=== PATIENT | female | born 1955 | race Caucasian/White ===

== ENCOUNTER 2021-12-19 12:20 | Inpatient (IN) ==
[2021-12-19 13:09] LABS: Basophils # (auto) 0.03 K/uL (0-0.2); Basophils % (auto) 0.2 %; Eosinophils # (auto) 0.01 K/uL (0-0.50); Eosinophils % (auto) 0.1 %; Hematocrit (blood only) 37.5 % (34.1-44.9); Hemoglobin 12.5 g/dl (12.0-16.0); Immature Granulocytes # (auto) 0.11 K/uL (0.00-0.02); Immature Granulocytes % (auto) 0.7 %; Lymphocytes # (auto) 1.18 K/uL (1.2-3.4); Mean Corpuscular Hemoglobin 25.2 pg (25.0-34.0); Mean Corpuscular Hgb Conc 33.3 g/dL (32.0-36.0); Mean Corpuscular Volume 75.6 fL (80.0-100.0); Mean Platelet Volume 12.3 fL (9.4-12.3); Monocytes # (auto) 0.93 K/uL (0.24-0.82); Monocytes % (auto) 6.3 %; Neutrophils # (auto) 12.48 K/uL (1.4-6.5); Neutrophils % (auto) 84.7 %; Platelet Count 360 K/uL (130-400); RDW Coefficient of Variation 14.3 % (11.5-14.5); RDW Standard Deviation 38.9 fL (36.4-46.3); Red Blood Count 4.96 M/uL (3.93-5.22); White Blood Count 14.74 K/ul (4.8-10.8)
[2021-12-19 13:27] LABS: INR 1.2 (0.9-1.1); Partial Thromboplastin Ratio 1.2; Partial Thromboplastin Time 33.6 Seconds (21.0-31.0); Prothrombin Time 12.6 Seconds (9.0-12.0)
[2021-12-19 13:41] LABS: Troponin I High Sensitivity 12.2 pg/ml (0-14)
[2021-12-19 13:43] LABS: Alanine Aminotransferase 13 U/L (7-52); Albumin Globulin Ratio 0.8 (0.9-2); Albumin Level 3.8 gm/dl (3.4-5.0); Alkaline Phosphatase 106 U/L (34-104); Anion Gap 15 (3-11); Aspartate Aminotransferase 11 U/L (13-39); BUN Creatinine Ratio 12.4 (10-20); Bilirubin,Total 0.8 mg/dl (0.2-1.0); Blood Urea Nitrogen 14 mg/dl (6-23); Calcium 10.3 mg/dl (8.5-10.1); Carbon Dioxide 28 mmol/L (21-32); Chloride 88 mmol/L (98-107); Est GFR (African American) 59.1 ml/min; Globulin 4.5 gm/dl (2.5-4.0); Glucose 261 mg/dl (70-99(Fasting)); Magnesium 1.5 mg/dl (1.7-2.4); Potassium 3.1 mmol/L (3.5-5.1); Sodium 131 mmol/L (136-145); Total Protein 8.3 gm/dl (6.0-8.3)
--- NOTE | 2021-12-19 13:48 | XRay Report ---
XR chest 1V not portable CLINICAL HISTORY: Sepsis TECHNIQUE: Single frontal radiograph of the chest was obtained. Comparison: None available at the time of this dictation. FINDINGS: No lines and tubes are seen. The cardiomediastinal silhouette is normal. The lungs are clear. No evid ence of pleural effusion or pneumothorax. IMPRESSION: No acute chest disease. ACT 112: Negative or not required by law. Electronically signed by: Juarez Doherty M.D. 12/19/2021 1:47 PM
--- NOTE | 2021-12-19 14:34 | Electrocardiogram Report ---
Test Reason : Blood Pressure : / mmHG Vent. Rate : 070 BPM Atrial Rate : 070 BPM P-R Int : 174 ms QRS Dur : 088 ms QT Int : 438 ms P-R-T Axes : 063 006 030 degrees QTc Int : 473 ms Poor data quality, interpretation may be adversely affected Normal sinus rhythm Poor R wave progression, consider anterior [place] vs. lead placement vs. LVH Abnormal ECG No previous ECGs available Confirmed by Myles Kingsley ([id number]) on 12/19/2021 2:33:57 PM Referred By: Confirmed By:Myles Kingsley
[2021-12-19] MEDS ORDERED: CEFEPIME 20 ML IV STA (14:55)
[2021-12-19] MEDS ORDERED: metroNIDAZOLE 500 MG/100 ML BAG IV STA (14:55)
[2021-12-19] MEDS ORDERED: Patient's HEIGHT &/or WEIGHT Needed SCH (15:00)
[2021-12-19] MEDS ORDERED: ONDANSETRON INJ 2 MG/ML 2 ML VIAL IV STA (15:12)
[2021-12-19] MEDS ORDERED: VANCOMYCIN HCL 2,000 MG in SODIUM CHLORIDE 0.9% 500 ML IV STA (15:13)
--- NOTE | 2021-12-19 15:41 | XRay Report ---
RIGHT FOOT 3 VIEWS CLINICAL HISTORY: Diabetic foot ulcer. FINDINGS: 3 views of the right foot are obtained. No prior studies are available for comparison at th e time of dictation. The skeletal structures are heterogeneously osteopenic. No acute fracture is see n. There is no bony erosion or periostitis. Moderate osteoarthritic change is noted at the first meta tarsophalangeal joint. Moderate arthritic change is also seen at the tarsometatarsal articulations. T here is a tiny dorsal calcaneal enthesophyte. Degenerative spurring is seen along the dorsal aspect o f the tarsal bones. A plantar ulceration is suggested in the forefoot on the lateral projection. Ther e is mild soft tissue edema in the forefoot. No radiodense foreign body or soft tissue gas is seen. IMPRESSION: 1. Osteopenia and degenerative changes above with no acute bony abnormality identified. 2. A plantar ulceration is suggested in the forefoot on the lateral view. Electronically signed by: Kan Croft M.D. 12/19/2021 3:39 PM
--- NOTE | 2021-12-19 15:54 | CT Scan Report ---
CT SCAN OF THE ABDOMEN AND PELVIS WITHOUT IV CONTRAST CLINICAL HISTORY: Upper abdominal pain. COMPARISON STUDY: No priors. TECHNIQUE: CT scan of the abdomen and pelvis is performed from the lung bases to the proximal femora. Images are reviewed in the axial, sagittal, and coronal planes. IV contrast was not administered for this examination. Note that the examination is suboptimal without oral and IV contrast. A dose lower ing technique was utilized adhering to the principles of ALARA. CT DOSE: 1113.85 mGy.cm FINDINGS: Lung bases: The heart is normal in size and without pericardial effusion. The coronary arteries are d ensely calcified. There is a small to moderate hiatal hernia. There is an 11 mm lobulated pulmonary n odule at the right lung base seen on image #53. The lung bases are otherwise clear noting bibasilar s carring/atelectasis. Liver: The unenhanced liver is enlarged, measuring 19.5 cm in length. The liver is otherwise normal i n contour and attenuation. There is no intrahepatic biliary ductal dilatation. Gallbladder: Unremarkable. Spleen: The spleen is mildly enlarged measuring 13.9 cm in length. Pancreas: The unenhanced pancreas is grossly unremarkable. Adrenal glands: Unremarkable. Kidneys: The unenhanced kidneys are normal in size and without hydronephrosis. There are no renal madhavi culi identified. A 3.1 cm cyst is noted in the left lower pole. Abdominal vasculature: The abdominal aorta is normal in course and caliber noting moderate to advance d atherosclerotic calcification. Bowel: There is no bowel obstruction. Mild fecal retention is seen throughout the colon. The appendix is well-visualized and normal. Peritoneum: There is no intraperitoneal free air or abdominal ascites. Lymphadenopathy: Prominent right inguinal lymph nodes measure up to 1.5 cm. These are likely reactive . Prominent right iliac chain nodes measure up to 10 mm in short axis. Pelvic viscera: The bladder is normal as visualized. The uterus is surgically absent. No adnexal lesi on is seen. Skeletal structures: The skeletal structures are osteopenic. There is mild lumbosacral spondylosis an d scoliosis. No lytic or blastic lesions are seen. IMPRESSION: 1. No acute infectious or inflammatory findings are identified in the abdomen or pelvis. 2. Mild hepatosplenomegaly. 3. There is a pathologically indeterminant 11 mm right lower lobe pulmonary nodule. A follow-up chest CT in 6 months time is recommended for reassessment and full evaluation of pneumothorax. 4. Hiatal hernia. 5. Additional findings as above. ACT 112: Positive. There are findings on this exam that require communication between the performing entity and the patient following Patient Test Result Information Act ([place] Act 112) guidelines. Electronically signed by: Kan Croft M.D. 12/19/2021 3:52 PM
--- NOTE | 2021-12-19 15:55 | XRay Report ---
XR foot LT min 3V routine CLINICAL HISTORY: plantar diabetic ulcer, ? osteo TECHNIQUE: 3 views of the left foot were obtained. Comparison: None available at the time of this dictation. FINDINGS: No evidence of bony erosion is seen. Extensive degenerative changes are seen. Soft tissue ulceration is seen in the plantar forefoot. IMPRESSION: Plantar ulcer is noted in the forefoot. No radiographic evidence of osteomyelitis. If clinical concer n remains, MRI is a more sensitive modality. ACT 112: Negative or not required by law. Electronically signed by: Juarez Doherty M.D. 12/19/2021 3:53 PM
[2021-12-19 16:59] LABS: Appearance Urine Clear (Clear); Bacteria Urine Automated Negative (Negative); Blood Urine Negative (Negative); Color Urine Dark Yellow; Epithelial Cell Urine Auto >30 /lpf (0-5); Glucose Urine UA Negative (Negative); Ketones Urine Trace (Negative); Leukocyte Esterase Urine Negative (Negative); Nitrite Urine Negative (Negative); Protein Urine Trace (Negative); RBC Urine Automated 0-4 /hpf (0-4); Specific Gravity Urine 1.017 (1.000-1.030); Urobilinogen Urine Negative (Negative)
[2021-12-19 17:04] LABS: Bilirubin Urine 1+ (Negative)
[2021-12-19] MEDS ORDERED: POTASSIUM CHLORIDE CRTAB 20 MEQ TABCR PO STA (17:15)
--- NOTE | 2021-12-19 17:31 | History & Physical Report ---
Date of Service December 19, 2021 Assessment & Plan (1) Diabetic foot infection: (2) Foot ulcer: Plan: -Admit to med telemetry -Wound care consulted -X-ray of left and right foot are negative for obvious osteomyelitis, obtain MRI if medically cleared -Follow blood cultures, wound culture, ESR, CRP -Continue treatment with IV Vanco, cefepime and Flagyl - Obtain MRI of bilateral feet-->she became nauseous in MRI this evening and couldn't complete the studies. Try again in am. -ortho consult -notably daughter also states that mom walks around on cat feces because cat plays with stool?-->blood cultures pending. (3) DM II (diabetes mellitus, type II), controlled: Plan: - uncontrolled, Holding glipizide and metformin -A1c with a.m. labs. Daughter reports glucose is in the 300s-400s -ISS with Accu-Cheks ACHS - allow clears for now -certified adapted physical educator requested. -notably patient reports being prescribed Trulicity but isn't certain what dose and hasn't started this yet. (4) Nausea & vomiting: Plan: Multiple etiologies including but not limited to diabetic gastroparesis, worsened foot infection, normal bereavement regarding anniversary of 's vs depression. Other infection such as food borne illness-daughter says she is not caring for herself at home and this may be likely with eating spoiled foods. (5) Hyponatremia: Plan: 2/2 clinical dehydration. Cont to encourage PO intake. Repeat BMP in am. (6) Hypomagnesemia: Plan: -replace and repeat in am. (7) Hypokalemia: Plan: -Replaced with 40 meq, BMP in am. She is on a thiazode diuretic which may be contributing. -P-t reports vomiting intermittently (8) Pito's disease: Plan: -chronic, stable. Cont Synthroid per home regimen. (9) HTN (hypertension): Plan: chronic, stable. Cont chlorthalidone and diltiazem per home regimen. (10) DVT prophylaxis: Plan: teds, scds, heparin CODE: Full code Dispo: From home, likely to remain in the hospital x 2 days. PT/OT ordered for reported weakness at the end of the visit. Stephanie Mcdonough DO [facility] History of Present Illness Chief Complaint: Sent from wound clinic for foot ulcercs Primary Care Provider: Meli Dubois MD at [facility] This is a 66 yo F with PMhx of DM type II, Pito's, Hawley's esophagus, brain meningioma, diabetic neuropathy, history of foot ulcers which she has been being seen in the wound clinic for for many months. She was sent to the ER as bilateral foot ulcers had foul smell, increased redness and swelling. She reports not being on any recent antibiotics for this. She typically walks with socks at home, gets around without use of a walker or cane. No recent falls. She denies any fever /sweats but reports some chills. She has been taking her medication, however her daughter at bedside reports that she is not sure she is taking it accurately/compliantly. Patient notes that she has abdominal pain where she has a "pulling sensation" on her right side. She notes that there is a specific right upper quadrant discomfort. Patient has intermittent nausea and vomited once today. She also reports having issues with constipation, unknown last bowel movement. She is repetitively asking for something to eat during our encounter. Abdominal pain has been going on for months and has previously been told that she had a nonfunctioning gallbladder, and previously had a study where dye was injected into it and it was not working. Due to her chronic comorbidities and poor health she was told she was not an operable candidate and that they would not operate unless it was significantly needed. She notes that her second 1 year ago, and since then has struggled with her mood and admits to being depressed. She is taking antidepressants but is not sure that they actually help her. She is not seeing counselor or psychiatrist. Patient also notes that she was supposed to be wearing CPAP however has not in years. She does not wear any supplemental O2 at baseline. Quit smoking in 2007 after smoking 1 PPD since age 17. Denies any alcohol use. Allergies Allergy/AdvReac Type Severity Reaction Status Date / Time nickel Allergy Intermediate RASH, SKIN Verified 12/19/21 16:16 IRRITATION Sulfa (Sulfonamide Allergy Intermediate Rash Verified 12/19/21 16:16 Antibiotics) Penicillins Allergy Unknown HAPPENED Verified 12/19/21 16:16 AN INFANT--FAMILY HX. Home Medications Medication Instructions Recorded Confirmed Type aspirin 81 mg tablet,delayed 81 mg PO DAILY 12/19/21 12/19/21 History release atorvastatin 20 mg tablet 20 mg PO HS 12/19/21 12/19/21 History chlorthalidone 25 mg tablet 25 mg PO DAILY 12/19/21 12/19/21 History cholecalciferol (vitamin D3) 25 25 mcg PO DAILY 12/19/21 12/19/21 History mcg (1,000 unit) capsule (Vitamin D3) diltiazem HCl 360 mg capsule,24 360 mg PO DAILY 12/19/21 12/19/21 History hr,extended release (Tiadylt ER) esomeprazole magnesium 20 mg 20 mg PO DAILY 12/19/21 12/19/21 History capsule,delayed release (Nexium) fluoxetine 40 mg capsule 40 mg PO DAILY 12/19/21 12/19/21 History glipizide 10 mg tablet, extended 10 mg PO BID 12/19/21 12/19/21 History release 24 hr levothyroxine 100 mcg tablet 100 mcg PO WK 12/19/21 12/19/21 History levothyroxine 175 mcg tablet 175 mcg PO 6XWK 12/19/21 12/19/21 History metformin 1,000 mg tablet 1,000 mg PO BID 12/19/21 12/19/21 History ondansetron 4 mg disintegrating 4 mg translingual Q8H PRN 12/19/21 12/19/21 History tablet NAUSEA/VOMITING potassium chloride 10 mEq 10 meq PO DAILY 12/19/21 12/19/21 History capsule,extended release sodium hypochlorite 0.125 % 1 applic topical DAILY 12/19/21 12/19/21 History solution (Dakin's Solution) Past Med/Surg History Medical History (Updated 12/19/21 @ 22:55 by Stephanie Mcdonough DO) Breast cyst DM II (diabetes mellitus, type II), controlled Pito's disease HTN (hypertension) Lung nodule Meningioma Tobacco abuse, in remission Surgical History (Updated 12/19/21 @ 18:33 by Autumn Villa PA-C) H/O removal of cyst Hx of foot surgery Hx of hand surgery Hx of total hysterectomy Family History (Updated 12/19/21 @ 18:34 by Autumn Villa PA-C) Aunt Cancer Ovarian age 31 Aunt Cancer Throat, bladder Uncle Cancer Prostate Mother Heart disease Hypertension Social History (Updated 12/19/21 @ 18:35 by Autumn Villa PA-C) Smoking Status: Former smoker Age Started Using Tobacco: 17; packs per day: 1; Smoking End Date: 2007; Hx Alcohol Use: No Hx Substance Use: No Preferred Language: [place] Feels Safe at Home: Yes Review of Systems Review of Systems: Constitutional: No fever, sweats or chills Eyes: No diplopia, no worsening or blurred vision ENT: normal hearing, no trouble swallowing Respiratory: No cough, sputum, dyspnea at rest or on exertion Cardiovascular: No chest pain, tightness or palpitations Abdomen: + As per HPI + pain, + nausea, + vomiting, +constipation Musculoskeletal: No joint pain, calf pain, swelling Neurologic: + Numbness of feet bilaterally, + generalized weakness and fatigue, numbness/tingling, or balance problems Psychiatric: + depression after her 's 1 year ago. Skin: No rash or itch Physical Exam Physical Exam: General: awake, alert, no apparent distress, obese with BMI of 34.4 Head: Normocephalic, atraumatic ENT: PERRL, EOMI, no pharyngeal exudate, mucous membranes moist, + poor dentition, multiple broken teeth, no visible purulent material, multiple caries throughout Chest: Clear to auscultation, on room air, no adventitious breath sounds Cardiac: Regular rate and rhythm, no murmur, no JVD, normal peripheral pulses, good capillary refill Abdominal: NABS x 4 quadrants, soft, nondistended, + tender to deep palpation in RUQ, no rebound or guarding Extremities: + Foul-smelling foot ulcerations bilaterally, bilateral plantar ulcerations approximately 1-2 cm in diameter, erythematous second right toe with edema, + edema of right ankle, no erythema streaking, calfs nontender to palpation Psych: Flat mood and affect, denies suicidal or homicidal ideations Neuro: AAO x 3, strength intact bilaterally and rated 5/5, no motor deficits, speech is clear, + diabetic neuropathy, peripheral sensory deficits bilateral feet up to the level of the ankle Results & Data Results & Data ([facility]) Vital Signs (Past 12 Hours) Vital Signs Temp Pulse Pulse Resp BP BP Pulse Ox 12/19/21 15:29 66 18 94 12/19/21 15:29 94 12/19/21 15:29 66 18 115/79 94 12/19/21 12:27 36.2 C L 81 18 118/77 95 O2 Del Method 12/19/21 15:29 Room Air 12/19/21 15:29 Room Air 12/19/21 15:29 Room Air 12/19/21 12:27 Room Air Laboratory Results 12/19/21 14:32 Aerobic Blood Culture - Pending Blood Anaerobic Blood Culture - Pending 12/19/21 12:45 Aerobic Blood Culture - Pending Blood Anaerobic Blood Culture - Pending 12/19/21 12/19/21 12/19/21 16:26 12:45 12:45 WBC RBC Hgb Hct MCV MCH MCHC RDW Std Deviation RDW Coeff of Roni Plt Count MPV Immature Gran % (Auto) Neut % (Auto) Lymph % (Auto) [place] % (Auto) Eos % (Auto) Baso % (Auto) Neut # (Auto) Lymph # (Auto) [place] # (Auto) Eos # (Auto) Baso # (Auto) Immature Gran # (Auto) PT INR APTT PTT Ratio Sodium 131 L Potassium 3.1 L Chloride 88 L Carbon Dioxide 28 Anion Gap 15 H BUN 14 Creatinine 1.13 Est Cr Clr Drug Dosing Not Reportable Est GFR ( Amer) 59.1 Est GFR (Non-Af Amer) 51.0 BUN/Creatinine Ratio 12.4 Glucose 261 H Calcium 10.3 H Magnesium 1.5 L Total Bilirubin 0.8 AST 11 L ALT 13 Alkaline Phosphatase 106 H Troponin I High Sens 12.2 Total Protein 8.3 Albumin 3.8 Globulin 4.5 H Albumin/Globulin Ratio 0.8 L Procalcitonin 0.78 H Urine Color Dark Yellow Urine Appearance Clear Urine pH 5.0 Ur Specific [place] 1.017 Urine Protein Trace H Urine Glucose (UA) Negative Urine Ketones Trace H Urine Blood Negative Urine Nitrite Negative Urine Bilirubin 1+ H Urine Urobilinogen Negative Ur Leukocyte Esterase Negative Urine WBC (Auto) 1-5 Urine RBC (Auto) 0-4 U Hyaline Cast (Auto) 10-30 H U Epithel Cells (Auto) >30 H Urine Bacteria (Auto) Negative 12/19/21 12/19/21 12:45 12:45 WBC 14.74 H RBC 4.96 Hgb 12.5 Hct 37.5 MCV 75.6 L MCH 25.2 MCHC 33.3 RDW Std Deviation 38.9 RDW Coeff of Roni 14.3 Plt Count 360 MPV 12.3 Immature Gran % (Auto) 0.7 Neut % (Auto) 84.7 Lymph % (Auto) 8.0 [place] % (Auto) 6.3 Eos % (Auto) 0.1 Baso % (Auto) 0.2 Neut # (Auto) 12.48 H Lymph # (Auto) 1.18 L [place] # (Auto) 0.93 H Eos # (Auto) 0.01 Baso # (Auto) 0.03 Immature Gran # (Auto) 0.11 H PT 12.6 H INR 1.2 H APTT 33.6 H PTT Ratio 1.2 Sodium Potassium Chloride Carbon Dioxide Anion Gap BUN Creatinine Est Cr Clr Drug Dosing Est GFR ( Amer) Est GFR (Non-Af Amer) BUN/Creatinine Ratio Glucose Calcium Magnesium Total Bilirubin AST ALT Alkaline Phosphatase Troponin I High Sens Total Protein Albumin Globulin Albumin/Globulin Ratio Procalcitonin Urine Color Urine Appearance Urine pH Ur Specific [place] Urine Protein Urine Glucose (UA) Urine Ketones Urine Blood Urine Nitrite Urine Bilirubin Urine Urobilinogen Ur Leukocyte Esterase Urine WBC (Auto) Urine RBC (Auto) U Hyaline Cast (Auto) U Epithel Cells (Auto) Urine Bacteria (Auto) Diagnostic Findings Chest X-Ray 12/19/21 12:33 XR chest 1V not portable CLINICAL HISTORY: Sepsis TECHNIQUE: Single frontal radiograph of the chest was obtained. Comparison: None available at the time of this dictation. FINDINGS: No lines and tubes are seen. The cardiomediastinal silhouette is normal. The lungs are clear. No evidence of pleural effusion or pneumothorax. IMPRESSION: No acute chest disease. ACT 112: Negative or not required by law. Electronically signed by: Juarez Doherty M.D. 12/19/2021 1:47 PM Abdomen/Pelvis CT 12/19/21 14:47 CT SCAN OF THE ABDOMEN AND PELVIS WITHOUT IV CONTRAST CLINICAL HISTORY: Upper abdominal pain. COMPARISON STUDY: No priors. TECHNIQUE: CT scan of the abdomen and pelvis is performed from the lung bases to the proximal femora. Images are reviewed in the axial, sagittal, and coronal planes. IV contrast was not administered for this examination. Note that the examination is suboptimal without oral and IV contrast. A dose lowering technique was utilized adhering to the principles of ALARA. CT DOSE: 1113.85 mGy.cm FINDINGS: Lung bases: The heart is normal in size and without pericardial effusion. The coronary arteries are densely calcified. There is a small to moderate hiatal hernia. There is an 11 mm lobulated pulmonary nodule at the right lung base seen on image #53. The lung bases are otherwise clear noting bibasilar scarring/atelectasis. Liver: The unenhanced liver is enlarged, measuring 19.5 cm in length. The liver is otherwise normal in contour and attenuation. There is no intrahepatic biliary ductal dilatation. Gallbladder: Unremarkable. Spleen: The spleen is mildly enlarged measuring 13.9 cm in length. Pancreas: The unenhanced pancreas is grossly unremarkable. Adrenal glands: Unremarkable. Kidneys: The unenhanced kidneys are normal in size and without hydronephrosis. There are no renal calculi identified. A 3.1 cm cyst is noted in the left lower pole. Abdominal vasculature: The abdominal aorta is normal in course and caliber noting moderate to advanced atherosclerotic calcification. Bowel: There is no bowel obstruction. Mild fecal retention is seen throughout the colon. The appendix is well-visualized and normal. Peritoneum: There is no intraperitoneal free air or abdominal ascites. Lymphadenopathy: Prominent right inguinal lymph nodes measure up to 1.5 cm. These are likely reactive. Prominent right iliac chain nodes measure up to 10 mm in short axis. Pelvic viscera: The bladder is normal as visualized. The uterus is surgically absent. No adnexal lesion is seen. Skeletal structures: The skeletal structures are osteopenic. There is mild lumbosacral spondylosis and scoliosis. No lytic or blastic lesions are seen. IMPRESSION: 1. No acute infectious or inflammatory findings are identified in the abdomen or pelvis. 2. Mild hepatosplenomegaly. 3. There is a pathologically indeterminant 11 mm right lower lobe pulmonary nodule. A follow-up chest CT in 6 months time is recommended for reassessment and full evaluation of pneumothorax. 4. Hiatal hernia. 5. Additional findings as above. ACT 112: Positive. There are findings on this exam that require communication between the performing entity and the patient following Patient Test Result Information Act ([place] Act 112) guidelines. Electronically signed by: Kan Croft M.D. 12/19/2021 3:52 PM Foot X-Ray 12/19/21 14:47 XR foot LT min 3V routine CLINICAL HISTORY: plantar diabetic ulcer, ? osteo TECHNIQUE: 3 views of the left foot were obtained. Comparison: None available at the time of this dictation. FINDINGS: No evidence of bony erosion is seen. Extensive degenerative changes are seen. So ft tissue ulceration is seen in the plantar forefoot. IMPRESSION: Plantar ulcer is noted in the forefoot. No radiographic evidence of osteomyelitis. If clinical concern remains, MRI is a more sensitive modality. ACT 112: Negative or not required by law. Electronically signed by: Juarez Doherty M.D. 12/19/2021 3:53 PM Foot X-Ray 12/19/21 14:47 RIGHT FOOT 3 VIEWS CLINICAL HISTORY: Diabetic foot ulcer. FINDINGS: 3 views of the right foot are obtained. No prior studies are available for comparison at the time of dictation. The skeletal structures are hetero geneously osteopenic. No acute fracture is seen. There is no bony erosion or periostitis. Moderate osteoarthritic change is noted at the first metatarsophalangeal joint. Moderate arthritic change is also seen at the tarsometatarsal articulations. There is a tiny dorsal calcaneal enthesophyte. Degenerative spurring is seen along the dorsal aspect of the tarsal bones. A plantar ulceration is suggested in the forefoot on the lateral projection. There is mild soft tissue edema in the forefoot. No radiodense foreign body or soft tissue gas is seen. IMPRESSION: 1. Osteopenia and degenerative changes above with no acute bony abnormality identified. 2. A plantar ulceration is suggested in the forefoot on the lateral view. Electronically signed by: Kan Croft M.D. 12/19/2021 3:39 PM ECG Additional Comments: 19-DEC-2021 12:42:19 [facility]-EDSTAT ROUTINE RETRIEVAL Poor data quality, interpretation may be adversely affected Normal sinus rhythm Poor R wave progression, consider anterior [place] vs. lead placement vs. LVH Abnormal ECG No previous ECGs available Confirmed by Myles Kingsley ([id number]) on 12/19/2021 2:33:57 PM 25mm/s10mm/[id number]: [id number] By: Myles Kingsley Vent. rate 70 BPM MD interval 174 ms QRS duration 88 ms QT/QTc 438/473 ms Code Status & VTE Plan Code Status Full code-discussed with the patient at bedside
[2021-12-19] MEDS ORDERED: POTASSIUM CHLORIDE 20 MEQ/15 ML UDC PO STA (17:48)
--- NOTE | 2021-12-19 18:47 | Emergency Department Note ---
Impression & Plan Diabetic infection of right foot, Hypomagnesemia, Hypokalemia, Diabetic infection of left foot, Bilateral upper abdominal pain ED Provider Note INFORMANT: Patient and daughter ED PROVIDER(S): Tim Rodgers MD CHIEF COMPLAINT: Diabetic foot infection PLAN: Disposition: Admitted Condition: Good Outpatient prescription management: none Referral: None MEDICAL DECISION MAKING: Patient presented because of concerns about infection. A sepsis work-up was initiated. She was found to have a leukocytosis. She did have a mild elevation of her CRP as well. Mild hypomagnesemia and hypokalemia noted. Patient was given oral potassium. She was given broad-spectrum antibiotic coverage with cefepime, Flagyl, and vancomycin after discussion with the ED pharmacist. She declined analgesia however was treated with Zofran. She has no sign of septic shock. She was gently hydrated. Lactate was normal. She did have a CT scan of the abdomen pelvis due to her abdominal complaints. No acute findings were noted. Patient was aware of nodule. [facility] was evaluated in the ER and admitted. Triage Nursing notes reviewed and agree them. Vital Signs: reviewed and remarkable for no significant abnormalities Differential diagnosis: Infection, dehydration, metabolic abnormality, hypo/hyperglycemia, electrolyte disturbance, anemia, hypoxia, cardiac sources, intracerebral event, toxicologic, neurologic, as well as other pathologies. Diagnostics interpreted by me: ECG: Twelve-lead ECG reveals a normal sinus rhythm at 70 bpm. Poor R wave progression. No ST elevation or depression. Normal QRS and axis. Cardiac Monitoring: Cardiac monitoring ordered by me: The patient was placed on continuous cardiac monitoring and observed. It revealed a normal sinus rhythm at 66 beats per minute without ectopy or evidence of dysrhythmia. Imaging studies: Chest x-ray. Findings: A chest x-ray was performed and revealed no pneumothorax, effusion, infiltrate, pulmonary edema, free air under the diaphragm, or wide mediastinum. Impression: No acute disease. X-ray imaging of both feet bilaterally revealed no evidence of osteomyelitis. CT scan of the abdomen pelvis is negative for acute pathology. Patient aware of nodule. I refer you to the EMR for further details. HPI: The patient is a 66year old female who presents to the Emergency Room with complaints of diabetic infection. This started a few weeks ago and is worsening. Patient went to the wound clinic today and was sent to the ER due to concerns about infection, possible sepsis. The patient also notes the following associated symptoms, nausea, vomiting, upper abdominal pain. Patient notes that at times he feels confused. The patient has taken no medication for relieving factors. Current pain is rated as 8/10. Pt denies LOC, headache, fevers, chills, diaphoresis, visual changes, neck pain, chest pain, breathing difficulties, back pain, melena, hematochezia, urinary symptoms, numbness, weakness, lymphadenopathy, rash, or other complaints. ROS: See above HPI for pertinent positives & negatives. A total of 10 systems reviewed and were otherwise negative. PAST MEDICAL HISTORY:See Below , diabetes PAST SURGICAL HISTORY:See Below, FAMILY HISTORY:See Below SOCIAL HISTORY:See Below, retired HOME MEDICATIONS:See Below ALLERGIES:See Below VITALS:See Below PHYSICAL EXAMINATION: GENERAL: Awake, alert, nontoxic-appearing, in no distress HENT: Normocephalic, atraumatic. Oropharynx unremarkable. EYES: Normal conjunctiva. Sclera non-icteric. NECK: Inspection normal. Non-tender. Supple. No nuchal rigidity. FROM. No masses. RESPIRATORY: Clear to auscultation. No wheezes. No rales. Normal respiratory effort. CARDIAC: Normal rate. Normal rhythm. No murmurs. No rubs. Extremities warm and well perfused. Pulses equal. No JVD. GI: Soft, non-distended. Bilateral upper quadrant tenderness to palpation. No rebound or guarding. No masses. RECTAL: Deferred. MUSCULOSKELETAL: Atraumatic. Chest examination reveals no tenderness. The back is symmetrical on inspection without obvious abnormality. There is no CVA tenderness to palpation. No joint edema. LOWER EXTREMITIES: Calves are equal size bilaterally and non-tender. Trace edema. There are foul-smelling bilateral plantar diabetic foot ulcers present. Mild surrounding erythema present. No significant drainage. NEURO: Normal sensorium. No sensory or motor deficits noted. SKIN: No rash or jaundice noted. Tim Rodgers MD Past Med/Surg History Medical History (Updated 12/19/21 @ 22:55 by Stephanie Mcdonough DO) Breast cyst DM II (diabetes mellitus, type II), controlled Pito's disease HTN (hypertension) Lung nodule Meningioma Tobacco abuse, in remission Surgical History (Updated 12/19/21 @ 18:33 by Autumn Villa PA-C) H/O removal of cyst Hx of foot surgery Hx of hand surgery Hx of total hysterectomy Family History (Updated 12/19/21 @ 18:34 by Autumn Villa PA-C) Aunt Cancer Ovarian age 31 Aunt Cancer Throat, bladder Uncle Cancer Prostate Mother Heart disease Hypertension Social History (Updated 12/19/21 @ 18:35 by Autumn Villa PA-C) Smoking Status: Former smoker Age Started Using Tobacco: 17; packs per day: 1; Smoking End Date: 2007; Hx Alcohol Use: No Hx Substance Use: No Preferred Language: Mosotho Feels Safe at Home: Yes Allergies Allergies Allergy/AdvReac Type Severity Reaction Status Date / Time nickel Allergy Intermediate RASH, SKIN Verified 12/19/21 16:16 IRRITATION Sulfa (Sulfonamide Allergy Intermediate Rash Verified 12/19/21 16:16 Antibiotics) Penicillins Allergy Unknown HAPPENED Verified 12/19/21 16:16 AN INFANT--FAMILY HX. Home Meds Home Medications Medication Instructions Recorded Confirmed aspirin 81 mg tablet,delayed 81 mg PO DAILY 12/19/21 12/19/21 release atorvastatin 20 mg tablet 20 mg PO HS 12/19/21 12/19/21 chlorthalidone 25 mg tablet 25 mg PO DAILY 12/19/21 12/19/21 cholecalciferol (vitamin D3) 25 25 mcg PO DAILY 12/19/21 12/19/21 mcg (1,000 unit) capsule (Vitamin D3) diltiazem HCl 360 mg capsule,24 360 mg PO DAILY 12/19/21 12/19/21 hr,extended release (Tiadylt ER) esomeprazole magnesium 20 mg 20 mg PO DAILY 12/19/21 12/19/21 capsule,delayed release (Nexium) fluoxetine 40 mg capsule 40 mg PO DAILY 12/19/21 12/19/21 glipizide 10 mg tablet, extended 10 mg PO BID 12/19/21 12/19/21 release 24 hr levothyroxine 100 mcg tablet 100 mcg PO WK 12/19/21 12/19/21 levothyroxine 175 mcg tablet 175 mcg PO 6XWK 12/19/21 12/19/21 metformin 1,000 mg tablet 1,000 mg PO BID 12/19/21 12/19/21 ondansetron 4 mg disintegrating 4 mg translingual Q8H PRN 12/19/21 12/19/21 tablet NAUSEA/VOMITING potassium chloride 10 mEq 10 meq PO DAILY 12/19/21 12/19/21 capsule,extended release sodium hypochlorite 0.125 % 1 applic topical DAILY 12/19/21 12/19/21 solution (Dakin's Solution) Results & Data (ED) Vital Signs Vital Signs - 24 hr 12/19/21 12:27 12/19/21 15:29 12/19/21 15:29 Temperature 36.2 C L Temperature Source Temporal Artery Scan Pulse Rate 81 Pulse Rate [Finger] 66 Respiratory Rate 18 18 Respiratory Effort / Characteristics Non-Labored Respiratory Depth Normal Respiratory Pattern Regular Blood Pressure 118/77 Blood Pressure [Left Arm] 115/79 Blood Pressure Mean 90 Blood Pressure Mean [Left Arm] 91 Pulse Oximetry 95 94 94 Oxygen Delivery Method Room Air Room Air Room Air Sepsis Recent Fever Within 48 Hours No Sepsis New/Unexplained Change in Mental Status N/A Sepsis Action Taken by Nursing No Action Required 12/19/21 15:29 Temperature Temperature Source Pulse Rate 66 Pulse Rate [Finger] Respiratory Rate 18 Respiratory Effort / Characteristics Respiratory Depth Respiratory Pattern Blood Pressure Blood Pressure [Left Arm] Blood Pressure Mean Blood Pressure Mean [Left Arm] Pulse Oximetry 94 Oxygen Delivery Method Room Air Sepsis Recent Fever Within 48 Hours Sepsis New/Unexplained Change in Mental Status Sepsis Action Taken by Nursing Laboratory Data Result diagrams: 12/19/21 12:45 12/19/21 12:45 Lab Results 12/19/21 12/19/21 12/19/21 Range/Units 12:45 12:45 12:45 WBC 14.74 H (4.8-10.8) K/ul RBC 4.96 (3.93-5.22) M/uL Hgb 12.5 (12.0-16.0) g/dl Hct 37.5 (34.1-44.9) % MCV 75.6 L (80.0-100.0) fL MCH 25.2 (25.0-34.0) pg MCHC 33.3 (32.0-36.0) g/dL RDW Std Deviation 38.9 (36.4-46.3) fL RDW Coeff of Roni 14.3 (11.5-14.5) % Plt Count 360 (130-400) K/uL MPV 12.3 (9.4-12.3) fL Immature Gran % (Auto) 0.7 % Neut % (Auto) 84.7 % Lymph % (Auto) 8.0 % [place] % (Auto) 6.3 % Eos % (Auto) 0.1 % Baso % (Auto) 0.2 % Neut # (Auto) 12.48 H (1.4-6.5) K/uL Lymph # (Auto) 1.18 L (1.2-3.4) K/uL [place] # (Auto) 0.93 H (0.24-0.82) K/uL Eos # (Auto) 0.01 (0-0.50) K/uL Baso # (Auto) 0.03 (0-0.2) K/uL Immature Gran # (Auto) 0.11 H (0.00-0.02) K/uL ESR (0-30) mm/hr PT 12.6 H (9.0-12.0) Seconds INR 1.2 H (0.9-1.1) APTT 33.6 H (21.0-31.0) Seconds PTT Ratio 1.2 Sodium 131 L (136-145) mmol/L Potassium 3.1 L (3.5-5.1) mmol/L Chloride 88 L (98-107) mmol/L Carbon Dioxide 28 (21-32) mmol/L Anion Gap 15 H (3-11) BUN 14 (6-23) mg/dl Creatinine 1.13 (0.6-1.2) mg/dl Est Cr Clr Drug Dosing Not Reportable Est GFR ( Amer) 59.1 ml/min Est GFR (Non-Af Amer) 51.0 ml/min BUN/Creatinine Ratio 12.4 (10-20) Glucose 261 H (70-99(Fasting)) mg/dl Calcium 10.3 H (8.5-10.1) mg/dl Magnesium 1.5 L (1.7-2.4) mg/dl Total Bilirubin 0.8 (0.2-1.0) mg/dl AST 11 L (13-39) U/L ALT 13 (7-52) U/L Alkaline Phosphatase 106 H (34-104) U/L Troponin I High Sens 12.2 (0-14) pg/ml C-Reactive Protein (0-0.5) mg/dl Total Protein 8.3 (6.0-8.3) gm/dl Albumin 3.8 (3.4-5.0) gm/dl Globulin 4.5 H (2.5-4.0) gm/dl Albumin/Globulin Ratio 0.8 L (0.9-2) Procalcitonin (0-0.5) ng/ml Urine Color Urine Appearance (Clear) Urine pH (4.5-7.5) Ur Specific [place] (1.000-1.030) Urine Protein (Negative) Urine Glucose (UA) (Negative) Urine Ketones (Negative) Urine Blood (Negative) Urine Nitrite (Negative) Urine Bilirubin (Negative) Urine Urobilinogen (Negative) Ur Leukocyte Esterase (Negative) Urine WBC (Auto) (0-5) /hpf Urine RBC (Auto) (0-4) /hpf U Hyaline Cast (Auto) (0-5) /lpf U Epithel Cells (Auto) (0-5) /lpf Urine Bacteria (Auto) (Negative) SARS-CoV-2, RNA, NAAT (NEGATIVE) 12/19/21 12/19/21 12/19/21 Range/Units 12:45 12:45 12:45 WBC (4.8-10.8) K/ul RBC (3.93-5.22) M/uL Hgb (12.0-16.0) g/dl Hct (34.1-44.9) % MCV (80.0-100.0) fL MCH (25.0-34.0) pg MCHC (32.0-36.0) g/dL RDW Std Deviation (36.4-46.3) fL RDW Coeff of Roni (11.5-14.5) % Plt Count (130-400) K/uL MPV (9.4-12.3) fL Immature Gran % (Auto) % Neut % (Auto) % Lymph % (Auto) % [place] % (Auto) % Eos % (Auto) % Baso % (Auto) % Neut # (Auto) (1.4-6.5) K/uL Lymph # (Auto) (1.2-3.4) K/uL [place] # (Auto) (0.24-0.82) K/uL Eos # (Auto) (0-0.50) K/uL Baso # (Auto) (0-0.2) K/uL Immature Gran # (Auto) (0.00-0.02) K/uL ESR 127 H (0-30) mm/hr PT (9.0-12.0) Seconds INR (0.9-1.1) APTT (21.0-31.0) Seconds PTT Ratio Sodium (136-145) mmol/L Potassium (3.5-5.1) mmol/L Chloride (98-107) mmol/L Carbon Dioxide (21-32) mmol/L Anion Gap (3-11) BUN (6-23) mg/dl Creatinine (0.6-1.2) mg/dl Est Cr Clr Drug Dosing Est GFR ( Amer) ml/min Est GFR (Non-Af Amer) ml/min BUN/Creatinine Ratio (10-20) Glucose (70-99(Fasting)) mg/dl Calcium (8.5-10.1) mg/dl Magnesium (1.7-2.4) mg/dl Total Bilirubin (0.2-1.0) mg/dl AST (13-39) U/L ALT (7-52) U/L Alkaline Phosphatase (34-104) U/L Troponin I High Sens (0-14) pg/ml C-Reactive Protein 24.75 H (0-0.5) mg/dl Total Protein (6.0-8.3) gm/dl Albumin (3.4-5.0) gm/dl Globulin (2.5-4.0) gm/dl Albumin/Globulin Ratio (0.9-2) Procalcitonin 0.78 H (0-0.5) ng/ml Urine Color Urine Appearance (Clear) Urine pH (4.5-7.5) Ur Specific [place] (1.000-1.030) Urine Protein (Negative) Urine Glucose (UA) (Negative) Urine Ketones (Negative) Urine Blood (Negative) Urine Nitrite (Negative) Urine Bilirubin (Negative) Urine Urobilinogen (Negative) Ur Leukocyte Esterase (Negative) Urine WBC (Auto) (0-5) /hpf Urine RBC (Auto) (0-4) /hpf U Hyaline Cast (Auto) (0-5) /lpf U Epithel Cells (Auto) (0-5) /lpf Urine Bacteria (Auto) (Negative) SARS-CoV-2, RNA, NAAT (NEGATIVE) 12/19/21 12/19/21 Range/Units 16:26 17:34 WBC (4.8-10.8) K/ul RBC (3.93-5.22) M/uL Hgb (12.0-16.0) g/dl Hct (34.1-44.9) % MCV (80.0-100.0) fL MCH (25.0-34.0) pg MCHC (32.0-36.0) g/dL RDW Std Deviation (36.4-46.3) fL RDW Coeff of Roni (11.5-14.5) % Plt Count (130-400) K/uL MPV (9.4-12.3) fL Immature Gran % (Auto) % Neut % (Auto) % Lymph % (Auto) % [place] % (Auto) % Eos % (Auto) % Baso % (Auto) % Neut # (Auto) (1.4-6.5) K/uL Lymph # (Auto) (1.2-3.4) K/uL [place] # (Auto) (0.24-0.82) K/uL Eos # (Auto) (0-0.50) K/uL Baso # (Auto) (0-0.2) K/uL Immature Gran # (Auto) (0.00-0.02) K/uL ESR (0-30) mm/hr PT (9.0-12.0) Seconds INR (0.9-1.1) APTT (21.0-31.0) Seconds PTT Ratio Sodium (136-145) mmol/L Potassium (3.5-5.1) mmol/L Chloride (98-107) mmol/L Carbon Dioxide (21-32) mmol/L Anion Gap (3-11) BUN (6-23) mg/dl Creatinine (0.6-1.2) mg/dl Est Cr Clr Drug Dosing Est GFR ( Amer) ml/min Est GFR (Non-Af Amer) ml/min BUN/Creatinine Ratio (10-20) Glucose (70-99(Fasting)) mg/dl Calcium (8.5-10.1) mg/dl Magnesium (1.7-2.4) mg/dl Total Bilirubin (0.2-1.0) mg/dl AST (13-39) U/L ALT (7-52) U/L Alkaline Phosphatase (34-104) U/L Troponin I High Sens (0-14) pg/ml C-Reactive Protein (0-0.5) mg/dl Total Protein (6.0-8.3) gm/dl Albumin (3.4-5.0) gm/dl Globulin (2.5-4.0) gm/dl Albumin/Globulin Ratio (0.9-2) Procalcitonin (0-0.5) ng/ml Urine Color Dark Yellow Urine Appearance Clear (Clear) Urine pH 5.0 (4.5-7.5) Ur Specific [place] 1.017 (1.000-1.030) Urine Protein Trace H (Negative) Urine Glucose (UA) Negative (Negative) Urine Ketones Trace H (Negative) Urine Blood Negative (Negative) Urine Nitrite Negative (Negative) Urine Bilirubin 1+ H (Negative) Urine Urobilinogen Negative (Negative) Ur Leukocyte Esterase Negative (Negative) Urine WBC (Auto) 1-5 (0-5) /hpf Urine RBC (Auto) 0-4 (0-4) /hpf U Hyaline Cast (Auto) 10-30 H (0-5) /lpf U Epithel Cells (Auto) >30 H (0-5) /lpf Urine Bacteria (Auto) Negative (Negative) SARS-CoV-2, RNA, NAAT NEGATIVE (NEGATIVE) Administered Medications Atorvastatin Calcium (Atorvastatin 20 Mg Tab) 20 mg PO HS SHANTHI Stop: 01/18/22 21:59 Last Admin: 12/19/21 22:18 Dose: 20 mg Documented By: QG Insulin Aspart (Insulin Aspart Per Unit) 0 units SC ACHS SHANTHI Stop: 01/18/22 21:22 Last Admin: 12/19/21 22:17 Dose: 8 units Documented By: QG Co-signed By: TRUMAN Ondansetron HCl (Ondansetron Inj 2 Mg/Ml 2 Ml Vial) 4 mg IV Q4H PRN PRN Reason: Nausea And Vomiting Stop: 01/18/22 21:22 Last Admin: 12/19/21 22:17 Dose: 4 mg Documented By: QG Discontinued Medications Heparin Sodium (Porcine) (Heparin Sod 5,000 Unit/0.5 Ml Vial) 5,000 units SQ Q12 SHANTHI Stop: 01/18/22 21:59 Last Admin: 12/19/21 22:19 Dose: 5,000 units Documented By: QG Cefepime HCl (Maxipime) 20 mls @ 5 mls/min IV NOW STA Stop: 12/19/21 14:58 Last Admin: 12/19/21 15:22 Dose: 5 mls/min Documented By: QGV Metronidazole (Flagyl) 500 mg in 100 mls @ 100 mls/hr IV NOW STA Stop: 12/19/21 15:54 Last Infusion: 12/19/21 17:42 Dose: 0 mls/hr Documented By: Admin: 12/19/21 15:22 Dose: 100 mls/hr Documented By: QGV Vancomycin HCl 2,000 mg/ (Sodium Chloride) 540 mls @ 200 mls/hr IV NOW STA; Protocol Stop: 12/19/21 17:54 Last Admin: 12/19/21 17:41 Dose: 200 mls/hr Documented By: QGV Magnesium Sulfate/Dextrose (Magnesium Sulfate / D5w) 1 gm in 100 mls @ 50 mls/hr IV ONE ONE Stop: 12/19/21 23:22 Last Admin: 12/19/21 22:30 Dose: 50 mls/hr Documented By: QG Ondansetron HCl (Ondansetron Inj 2 Mg/Ml 2 Ml Vial) 4 mg IV NOW STA Stop: 12/19/21 15:13 Last Admin: 12/19/21 15:21 Dose: 4 mg Documented By: QGV Potassium Chloride (Potassium Chloride 20 Meq/15 Ml Udc) 40 meq PO NOW STA Stop: 12/19/21 17:49 Last Admin: 12/19/21 18:38 Dose: 40 meq Documented By: QGV Imaging Data Radiologist's Impression: Chest X-Ray 12/19/21 12:33 XR chest 1V not portable CLINICAL HISTORY: Sepsis TECHNIQUE: Single frontal radiograph of the chest was obtained. Comparison: None available at the time of this dictation. FINDINGS: No lines and tubes are seen. The cardiomediastinal silhouette is normal. The lungs are clear. No evidence of pleural effusion or pneumothorax. IMPRESSION: No acute chest disease. ACT 112: Negative or not required by law. Electronically signed by: Juarez Doherty M.D. 12/19/2021 1:47 PM Abdomen/Pelvis CT 12/19/21 14:47 CT SCAN OF THE ABDOMEN AND PELVIS WITHOUT IV CONTRAST CLINICAL HISTORY: Upper abdominal pain. COMPARISON STUDY: No priors. TECHNIQUE: CT scan of the abdomen and pelvis is performed from the lung bases to the proximal femora. Images are reviewed in the axial, sagittal, and coronal planes. IV contrast was not administered for this examination. Note that the examination is suboptimal without oral and IV contrast. A dose lowering technique was utilized adhering to the principles of ALARA. CT DOSE: 1113.85 mGy.cm FINDINGS: Lung bases: The heart is normal in size and without pericardial effusion. The coronary arteries are densely calcified. There is a small to moderate hiatal hernia. There is an 11 mm lobulated pulmonary nodule at the right lung base seen on image #53. The lung bases are otherwise clear noting bibasilar scarring/atelectasis. Liver: The unenhanced liver is enlarged, measuring 19.5 cm in length. The liver is otherwise normal in contour and attenuation. There is no intrahepatic biliary ductal dilatation. Gallbladder: Unremarkable. Spleen: The spleen is mildly enlarged measuring 13.9 cm in length. Pancreas: The unenhanced pancreas is grossly unremarkable. Adrenal glands: Unremarkable. Kidneys: The unenhanced kidneys are normal in size and without hydronephrosis. There are no renal calculi identified. A 3.1 cm cyst is noted in the left lower pole. Abdominal vasculature: The abdominal aorta is normal in course and caliber noting moderate to advanced atherosclerotic calcification. Bowel: There is no bowel obstruction. Mild fecal retention is seen throughout the colon. The appendix is well-visualized and normal. Peritoneum: There is no intraperitoneal free air or abdominal ascites. Lymphadenopathy: Prominent right inguinal lymph nodes measure up to 1.5 cm. These are likely reactive. Prominent right iliac chain nodes measure up to 10 mm in short axis. Pelvic viscera: The bladder is normal as visualized. The uterus is surgically absent. No adnexal lesion is seen. Skeletal structures: The skeletal structures are osteopenic. There is mild lumbosacral spondylosis and scoliosis. No lytic or blastic lesions are seen. IMPRESSION: 1. No acute infectious or inflammatory findings are identified in the abdomen or pelvis. 2. Mild hepatosplenomegaly. 3. There is a pathologically indeterminant 11 mm right lower lobe pulmonary nodule. A follow-up chest CT in 6 months time is recommended for reassessment and full evaluation of pneumothorax. 4. Hiatal hernia. 5. Additional findings as above. ACT 112: Positive. There are findings on this exam that require communication between the performing entity and the patient following Patient Test Result Information Act ([place] Act 112) guidelines. Electronically signed by: Kan Croft M.D. 12/19/2021 3:52 PM Foot X-Ray 12/19/21 14:47 XR foot LT min 3V routine CLINICAL HISTORY: plantar diabetic ulcer, ? osteo TECHNIQUE: 3 views of the left foot were obtained. Comparison: None available at the time of this dictation. FINDINGS: No evidence of bony erosion is seen. Extensive degenerative changes are seen. Soft tissue ulceration is seen in the plantar forefoot. IMPRESSION: Plantar ulcer is noted in the forefoot. No radiographic evidence of osteomyelitis. If clinical concern remains, MRI is a more sensitive modality. ACT 112: Negative or not required by law. Electronically signed by: Juarez Doherty M.D. 12/19/2021 3:53 PM Foot X-Ray 12/19/21 14:47 RIGHT FOOT 3 VIEWS CLINICAL HISTORY: Diabetic foot ulcer. FINDINGS: 3 views of the right foot are obtained. No prior studies are available for comparison at the time of dictation. The skeletal structures are heterogeneously osteopenic. No acute fracture is seen. There is no bony erosion or periostitis. Moderate osteoarthritic change is noted at the first metatarsophalangeal joint. Moderate arthritic change is also seen at the tarsometatarsal articulations. There is a tiny dorsal calcaneal enthesophyte. Degenerative spurring is seen along the dorsal aspect of the tarsal bones. A plantar ulceration is suggested in the forefoot on the lateral projection. There is mild soft tissue edema in the forefoot. No radiodense foreign body or soft tissue gas is seen. IMPRESSION: 1. Osteopenia and degenerative changes above with no acute bony abnormality identified. 2. A plantar ulceration is suggested in the forefoot on the lateral view. Electronically signed by: Kan Croft M.D. 12/19/2021 3:39 PM Discharge Plan Visit Data Chief Complaint: Referred by Doctor Stated Complaint: VOMITING, REFERRED BY DR Kamlesh [facility] ED Provider: Tim Rodgers Discharge Problem: Diabetic infection of right foot, Hypomagnesemia, Hypokalemia, Diabetic infection of left foot, Bilateral upper abdominal pain Patient Disposition: Admitted As Inpatient Discharge Instructions Interventions: ED Discharge Assessment Last Done: 12/19/21 19:58
--- NOTE | 2021-12-19 20:23 | Ultrasound Report ---
ULTRASOUND RIGHT UPPER QUADRANT ABDOMEN CLINICAL HISTORY: Right upper quadrant abdominal pain. Nausea. COMPARISON STUDY: Abdominal CT performed the same day 12/19/2021. TECHNIQUE: Real-time, grayscale, and color flow sonography of the right upper quadrant of the abdomen was performed. Images are reviewed in the transverse and longitudinal planes. FINDINGS: Liver: The liver is mildly enlarged. Echotexture is heterogeneous increased suggesting steatosis. The re is no intrahepatic biliary ductal dilatation. The main portal vein is patent. Gallbladder: The gallbladder is normal in appearance. No gallstones are identified. There is no gallb ladder wall thickening or pericholecystic fluid. A sonographic Coombs's sign is reportedly absent. Th e common bile duct measures up to 0.2 cm in diameter. Pancreas: Visualized portions of the pancreatic head and body are normal in appearance. Right kidney: Survey images of the right kidney demonstrate normal size and echotexture. There is no hydronephrosis. Ascites: None. IMPRESSION: 1 No acute sonographic abnormality is seen in the right upper quadrant. No gallstones are identified. 2. The liver is enlarged and mildly steatotic. ACT 112: Negative or not required by law. Electronically signed by: Kan Croft M.D. 12/19/2021 8:22 PM
[2021-12-19] MEDS ORDERED: ONDANSETRON 4 MG OD TAB PO PRN (21:23)
[2021-12-19] MEDS ORDERED: CARBOHYDRATES FOR HYPOGLYCEMIA PO PRN (21:23)
[2021-12-19] MEDS ORDERED: GLUCOSE 10 TAB/TUBE PO PRN (21:23)
[2021-12-19] MEDS ORDERED: MAGNESIUM SULFATE / D5W 1 GM/100 ML BAG IV ONE (21:23)
[2021-12-19] MEDS ORDERED: DEXTROSE 50% 50 ML SYRINGE IV PRN (21:23)
[2021-12-19] MEDS ORDERED: GLUCOSE 40% GEL 15 GM TUBE PO PRN (21:23)
[2021-12-19] MEDS ORDERED: GLUCAGON FOR INJ 1 MG VIAL SQ PRN (21:23)
[2021-12-19] MEDS ORDERED: ONDANSETRON INJ 2 MG/ML 2 ML VIAL IV PRN (21:23)
[2021-12-19] MEDS ORDERED: HEPARIN SOD 5,000 UNIT/0.5 ML VIAL SQ SCH (22:00)
[2021-12-19] MEDS: INSULIN ASPART PER UNIT SC SCH (22:17)
[2021-12-19] MEDS: ATORVASTATIN 20 MG TAB PO SCH (22:18)
[2021-12-20] MEDS: ACETAMINOPHEN 325 MG TAB PO PRN ×3 (00:31→20:46)
[2021-12-20] MEDS ORDERED: POLYETHYLENE (MIRALAX) 17 GM PACK PO STA (00:37)
[2021-12-20] MEDS ORDERED: POLYETHYLENE (MIRALAX) 17 GM PACK PO PRN (00:37)
[2021-12-20] MEDS: metroNIDAZOLE 500 MG/100 ML BAG IV SCH ×4 (00:55→22:24)
[2021-12-20] MEDS: DOCUSATE SODIUM/SENNA 50/8.6MG TAB PO SCH ×2 (01:28→08:03)
[2021-12-20] MEDS: CEFEPIME 2,000 MG in SYRINGE 0 ML IV SCH ×2 (03:21→15:44)
[2021-12-20] MEDS: HEPARIN SOD 5,000 UNIT/0.5 ML VIAL SQ SCH ×3 (05:34→21:04)
[2021-12-20] MEDS: LEVOTHYROXINE SODIUM 175 MCG TABLET PO SCH (05:34)
[2021-12-20 06:53] LABS: Hematocrit (blood only) 35.1 % (34.1-44.9); Hemoglobin 11.4 g/dl (12.0-16.0); Mean Corpuscular Hemoglobin 25.3 pg (25.0-34.0); Mean Corpuscular Hgb Conc 32.5 g/dL (32.0-36.0); Platelet Count 316 K/uL (130-400); RDW Coefficient of Variation 14.3 % (11.5-14.5); RDW Standard Deviation 40.1 fL (36.4-46.3); White Blood Count 10.08 K/ul (4.8-10.8)
[2021-12-20 07:24] LABS: Estimated Average Glucose 243 mg/dl; Hemoglobin A1C 10.1 % (4.5-5.6)
[2021-12-20 07:29] LABS: BUN Creatinine Ratio 13.5 (10-20); Calcium 10.1 mg/dl (8.5-10.1); Chol HDL Ratio 6.8 (0-5); Creatinine Clr Calc Pharmacy 78.3 ml/min; Est GFR (African American) 78.8 ml/min; Magnesium 1.9 mg/dl (1.7-2.4); Potassium 3.1 mmol/L (3.5-5.1)
[2021-12-20] MEDS ORDERED: POTASSIUM CHLORIDE CRTAB 20 MEQ TABCR PO ONE (07:42)
[2021-12-20] MEDS ORDERED: SODIUM CHLORIDE 0.9% 1000ML 1,000 ML IV ONE (07:46)
[2021-12-20] MEDS: INSULIN ASPART PER UNIT SC SCH ×4 (07:56→21:00)
[2021-12-20] MEDS: ASPIRIN 81 MG ECTAB PO SCH (08:02)
[2021-12-20] MEDS: PANTOprazole 40 MG TAB PO SCH (08:02)
[2021-12-20] MEDS: CHOLECALCIFEROL 1,000 UNITS 25 MCG TAB PO SCH (08:02)
[2021-12-20] MEDS: dilTIAZem ER 180 MG CAPCR PO SCH (08:02)
[2021-12-20] MEDS: FLUoxetine HCL 20 MG CAP PO SCH (08:02)
[2021-12-20] MEDS: POTASSIUM CHLORIDE / WTR 10 MEQ/100 ML PLCT IV SCH ×2 (08:03→09:29)
[2021-12-20] MEDS ORDERED: POTASSIUM CHLORIDE 10 MEQ TABCR PO SCH (09:00)
--- NOTE | 2021-12-20 12:19 | Orthopedic Consultation ---
Date of Consultation December 20, 2021 Assessment & Plan (1) Diabetic foot ulcers: Patient has bilateral foot ulcers. Suspect pressure ulcers, diabetic ulcers. The right foot appears to have some surrounding cellulitis. These wounds are chronic. The wound care nurse has been consulted but she has not been by to evaluate the wounds as of yet. Findings were discussed with Dr. Agosto. Recommend offloading her feet with ambulation. She is unable to bring her offloaded shoes that she has at home. We may consider putting her in the postop shoes or even consulting orthotics to consider total contact cast. X-rays do not show any bony destruction suggestive of osteomyelitis but MRIs with and without contrast are pending. Purulent drainage from right foot wound is suspicious for osteomyelitis, low suspicion for osteo on left foot. Recommend continued treatment with IV antibiotics per internal medicine. We will await for the MRI results. He will be by later today to determine definitive plan. No plans for surgical intervention at this time. Patient understands and agrees. Supervising Physician Co-Signing Physician Notes I saw and examined patient and agree with the above note. Patient's daughter was present at bedside today as well. She is not septic, so no urgent surgery needed. 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 Will see patient and discuss MRI findings with her after MRI is complete. She expressed a desire to follow-up with her artists' model in [place], so from an orthopaedic standpoint, should be OK to discharge after seen by wound care nurse and follow-up in [place] after discharge. History of Present Illness Reason for Consultation: bilateral plantar foot ulcers Attending Physician: Marbin Lopez MD History of Present Illness Patient is a 66 year old female who presented to the hospital, . She states that she came to the hospital because her artists' model thought maybe that she was becoming septic. She has had some "gallbladder pain as well.". She has been treated for the last 3 years by a artists' model, Dr. Petersen, In [place]. She states that these wounds have been open for the last 3 years. She has never had any vascular work-up. She has never been seen by an orthopedic surgeon. She does go to the wound care clinic in [place]. She had been seen there earlier in the week and they were concerned for worsening infection and possible sepsis. She was advised to go to the local emergency room. She is currently on IV vancomycin, cefepime and Flagyl. She states that she does have offloading shoes but she does not wear them because she does not think that they help. She does not have them with her today and states that they are very dirty and she cannot bring them in. She denies any pain in either foot. She states the right 1 was a little more painful because of some swelling. She noted some redness on it. At this point she states she just would do what ever it takes to get these wounds to heal. She is tired of dealing with this. Allergies Allergy/AdvReac Type Severity Reaction Status Date / Time nickel Allergy Intermediate RASH, SKIN Verified 12/19/21 16:16 IRRITATION Sulfa (Sulfonamide Allergy Intermediate Rash Verified 12/19/21 16:16 Antibiotics) Penicillins Allergy Unknown HAPPENED Verified 12/19/21 16:16 AN INFANT--FAMILY HX. Home Medications Medication Instructions Recorded Confirmed Type aspirin 81 mg tablet,delayed 81 mg PO DAILY 12/19/21 12/19/21 History release atorvastatin 20 mg tablet 20 mg PO HS 12/19/21 12/19/21 History chlorthalidone 25 mg tablet 25 mg PO DAILY 12/19/21 12/19/21 History cholecalciferol (vitamin D3) 25 25 mcg PO DAILY 12/19/21 12/19/21 History mcg (1,000 unit) capsule (Vitamin D3) diltiazem HCl 360 mg capsule,24 360 mg PO DAILY 12/19/21 12/19/21 History hr,extended release (Tiadylt ER) esomeprazole magnesium 20 mg 20 mg PO DAILY 12/19/21 12/19/21 History capsule,delayed release (Nexium) fluoxetine 40 mg capsule 40 mg PO DAILY 12/19/21 12/19/21 History glipizide 10 mg tablet, extended 10 mg PO BID 12/19/21 12/19/21 History release 24 hr levothyroxine 100 mcg tablet 100 mcg PO WK 12/19/21 12/19/21 History levothyroxine 175 mcg tablet 175 mcg PO [id number] 12/19/21 12/19/21 History metformin 1,000 mg tablet 1,000 mg PO BID 12/19/21 12/19/21 History ondansetron 4 mg disintegrating 4 mg translingual Q8H PRN 12/19/21 12/19/21 History tablet NAUSEA/VOMITING potassium chloride 10 mEq 10 meq PO DAILY 12/19/21 12/19/21 History capsule,extended release sodium hypochlorite 0.125 % 1 applic topical DAILY 12/19/21 12/19/21 History solution (Dakin's Solution) Patient History Medical History (Updated 12/20/21 @ 12:29 by Yuliya Benedict PA-C) Breast cyst DM II (diabetes mellitus, type II), controlled Pito's disease HTN (hypertension) Lung nodule Meningioma Tobacco abuse, in remission Surgical History (Updated 12/19/21 @ 18:33 by Autumn Villa PA-C) H/O removal of cyst Hx of foot surgery Hx of hand surgery Hx of total hysterectomy Family History (Updated 12/19/21 @ 18:34 by Autumn Villa PA-C) Aunt Cancer Ovarian age 31 Aunt Cancer Throat, bladder Uncle Cancer Prostate Mother Heart disease Hypertension Social History (Updated 12/19/21 @ 18:35 by Autumn Villa PA-C) Smoking Status: Never smoker Age Started Using Tobacco: 17; packs per day: 1; Smoking End Date: 2007; Hx Alcohol Use: No Hx Substance Use: No Preferred Language: Icelandic Communication Ability: Effective Cardiac Nurse Required: No Beliefs That Will Affect Care: None marital status: / Current Living Situation: Alone Feels Safe at Home: Yes Safety Concerns: Feels Safe At This Time Assistive Devices: None Physical Exam Musculoskeletal: Exam of her right foot: Her foot and ankle are mildly edematous. There is some mild erythema at the base of her toes. She does have an open wound at the base of her second toe at the metatarsal head the size of about a quarter. It is not covered with any type of dressing. With pressure there is some white and muniz colored liquid material that is expressed from the wound. This area was cleansed with a sterile saline wipe and a gauze pad. There is no evidence of necrosis. There is a rim of raised hard callus around the wound itself. There are some mild surrounding erythema. There is a small fissure at the MCP joint of her second toe plantarly. There is also a very small pinpoint black spot at the base of the toe as well. There were no crevices or fissures between any other toes. She tolerates full ankle range of motion. There is no skin breakdown throughout the rest of her foot or heel. She is nontender with palpation of her foot. She does have 1+ pulses with dorsalis pedis and posterior tibial. Capillary fill is brisk. Foul smelling drainage from wound. Ankle dorsiflexion limited to 0 with knee extended. Stocking glove pattern neuropathy with decreased to absent sensation distal to the ankle joint. Exam of her left foot: She is very similar wound on the left foot as compared to the right. There is no edema or erythema around this wound. The wound is at the second metatarsal head area. It is dry. There is a raised rim of callus around the wound. There is no fluctuance or purulence expressed from the wound today. The webspaces appear normal and there is no significant edema or erythema into her toes. She does have full range of motion of her ankle. Strength is 5/5. Dorsalis pedis and posterior tibial pulses are 1+. No skin necrosis. Ankle dorsiflexion limited to 5 degrees with knee extended. Stocking glove pattern neuropathy with decreased to absent sensation distal to the ankle joint. Bilaterally she does have fungal toenails. No other wounds appreciated throughout the feet or heels. Diminished sensation bilaterally throughout her feet and lower leg. Calves are supple and nontender. Ambulation not attempted today. Results & Data ([facility]) Vital Signs (Past 12 Hours) Vital Signs Temp Pulse Pulse Resp BP Pulse Ox O2 Del Method 12/20/21 11:04 36.6 C 78 18 103/61 90 Room Air 12/20/21 08:00 Room Air 12/20/21 07:25 66 12/20/21 07:16 36.5 C 67 18 111/70 90 Room Air 12/20/21 04:01 36.5 C 68 16 109/68 93 Room Air 12/20/21 00:17 72 Laboratory Results 12/20/21 12/20/21 12/20/21 Range/Units 11:43 09:33 07:33 WBC (4.8-10.8) K/ul RBC (3.93-5.22) M/uL Hgb (12.0-16.0) g/dl Hct (34.1-44.9) % MCV (80.0-100.0) fL MCH (25.0-34.0) pg MCHC (32.0-36.0) g/dL RDW Std Deviation (36.4-46.3) fL RDW Coeff of Roni (11.5-14.5) % Plt Count (130-400) K/uL MPV (9.4-12.3) fL Immature Gran % (Auto) % Neut % (Auto) % Lymph % (Auto) % Wilkin % (Auto) % Eos % (Auto) % Baso % (Auto) % Neut # (Auto) (1.4-6.5) K/uL Lymph # (Auto) (1.2-3.4) K/uL Wilkin # (Auto) (0.24-0.82) K/uL Eos # (Auto) (0-0.50) K/uL Baso # (Auto) (0-0.2) K/uL Immature Gran # (Auto) (0.00-0.02) K/uL ESR (0-30) mm/hr PT (9.0-12.0) Seconds INR (0.9-1.1) APTT (21.0-31.0) Seconds PTT Ratio Sodium (136-145) mmol/L Potassium (3.5-5.1) mmol/L Chloride (98-107) mmol/L Carbon Dioxide (21-32) mmol/L Anion Gap (3-11) BUN (6-23) mg/dl Creatinine (0.6-1.2) mg/dl Est Cr Clr Drug Dosing Est GFR ( Amer) ml/min Est GFR (Non-Af Amer) ml/min BUN/Creatinine Ratio (10-20) Glucose (70-99(Fasting)) mg/dl POC Glucose 249 H 137 H (70-99) mg/dl Estimat Average Glucose mg/dl Hemoglobin A1c (4.5-5.6) % Calcium (8.5-10.1) mg/dl Magnesium (1.7-2.4) mg/dl Total Bilirubin (0.2-1.0) mg/dl AST (13-39) U/L ALT (7-52) U/L Alkaline Phosphatase (34-104) U/L Troponin I High Sens (0-14) pg/ml C-Reactive Protein (0-0.5) mg/dl Total Protein (6.0-8.3) gm/dl Albumin (3.4-5.0) gm/dl Globulin (2.5-4.0) gm/dl Albumin/Globulin Ratio (0.9-2) Triglycerides (0-150) mg/dl Cholesterol (0-200) mg/dl LDL Cholesterol, Calc mg/dl VLDL Cholesterol, Calc (0-30) mg/dl HDL Cholesterol mg/dl Cholesterol/HDL Ratio (0-5) Procalcitonin (0-0.5) ng/ml TSH (0.300-4.500) uIu/ml Urine Color Urine Appearance (Clear) Urine pH (4.5-7.5) Ur Specific [place] (1.000-1.030) Urine Protein (Negative) Urine Glucose (UA) (Negative) Urine Ketones (Negative) Urine Blood (Negative) Urine Nitrite (Negative) Urine Bilirubin (Negative) Urine Urobilinogen (Negative) Ur Leukocyte Esterase (Negative) Urine WBC (Auto) (0-5) /hpf Urine RBC (Auto) (0-4) /hpf U Hyaline Cast (Auto) (0-5) /lpf U Epithel Cells (Auto) (0-5) /lpf Urine Bacteria (Auto) (Negative) Nasal Screen MRSA (PCR) Negative (Negative) SARS-CoV-2, RNA, NAAT (NEGATIVE) 12/20/21 12/20/21 12/20/21 Range/Units 06:27 06:27 06:27 WBC (4.8-10.8) K/ul RBC (3.93-5.22) M/uL Hgb (12.0-16.0) g/dl Hct (34.1-44.9) % MCV (80.0-100.0) fL MCH (25.0-34.0) pg MCHC (32.0-36.0) g/dL RDW Std Deviation (36.4-46.3) fL RDW Coeff of Roni (11.5-14.5) % Plt Count (130-400) K/uL MPV (9.4-12.3) fL Immature Gran % (Auto) % Neut % (Auto) % Lymph % (Auto) % Wilkin % (Auto) % Eos % (Auto) % Baso % (Auto) % Neut # (Auto) (1.4-6.5) K/uL Lymph # (Auto) (1.2-3.4) K/uL Wilkin # (Auto) (0.24-0.82) K/uL Eos # (Auto) (0-0.50) K/uL Baso # (Auto) (0-0.2) K/uL Immature Gran # (Auto) (0.00-0.02) K/uL ESR (0-30) mm/hr PT (9.0-12.0) Seconds INR (0.9-1.1) APTT (21.0-31.0) Seconds PTT Ratio Sodium 137 (136-145) mmol/L Potassium 3.1 L (3.5-5.1) mmol/L Chloride 94 L (98-107) mmol/L Carbon Dioxide 33 H (21-32) mmol/L Anion Gap 10 (3-11) BUN 12 (6-23) mg/dl Creatinine 0.89 (0.6-1.2) mg/dl Est Cr Clr Drug Dosing 78.3 Est GFR ( Amer) 78.8 ml/min Est GFR (Non-Af Amer) 68.0 ml/min BUN/Creatinine Ratio 13.5 (10-20) Glucose 133 H (70-99(Fasting)) mg/dl POC Glucose (70-99) mg/dl Estimat Average Glucose 243 mg/dl Hemoglobin A1c 10.1 H (4.5-5.6) % Calcium 10.1 (8.5-10.1) mg/dl Magnesium 1.9 (1.7-2.4) mg/dl Total Bilirubin (0.2-1.0) mg/dl AST (13-39) U/L ALT (7-52) U/L Alkaline Phosphatase (34-104) U/L Troponin I High Sens (0-14) pg/ml C-Reactive Protein (0-0.5) mg/dl Total Protein (6.0-8.3) gm/dl Albumin (3.4-5.0) gm/dl Globulin (2.5-4.0) gm/dl Albumin/Globulin Ratio (0.9-2) Triglycerides 129 (0-150) mg/dl Cholesterol 150 (0-200) mg/dl LDL Cholesterol, Calc 102 mg/dl VLDL Cholesterol, Calc 26 (0-30) mg/dl HDL Cholesterol 22 mg/dl Cholesterol/HDL Ratio 6.8 H (0-5) Procalcitonin (0-0.5) ng/ml TSH 0.341 (0.300-4.500) uIu/ml Urine Color Urine Appearance (Clear) Urine pH (4.5-7.5) Ur Specific [place] (1.000-1.030) Urine Protein (Negative) Urine Glucose (UA) (Negative) Urine Ketones (Negative) Urine Blood (Negative) Urine Nitrite (Negative) Urine Bilirubin (Negative) Urine Urobilinogen (Negative) Ur Leukocyte Esterase (Negative) Urine WBC (Auto) (0-5) /hpf Urine RBC (Auto) (0-4) /hpf U Hyaline Cast (Auto) (0-5) /lpf U Epithel Cells (Auto) (0-5) /lpf Urine Bacteria (Auto) (Negative) Nasal Screen MRSA (PCR) (Negative) SARS-CoV-2, RNA, NAAT (NEGATIVE) 12/20/21 12/19/21 12/19/21 Range/Units 06:27 22:02 17:50 WBC 10.08 (4.8-10.8) K/ul RBC 4.50 (3.93-5.22) M/uL Hgb 11.4 L (12.0-16.0) g/dl Hct 35.1 (34.1-44.9) % MCV 78.0 L (80.0-100.0) fL MCH 25.3 (25.0-34.0) pg MCHC 32.5 (32.0-36.0) g/dL RDW Std Deviation 40.1 (36.4-46.3) fL RDW Coeff of Roni 14.3 (11.5-14.5) % Plt Count 316 (130-400) K/uL MPV 12.0 (9.4-12.3) fL Immature Gran % (Auto) % Neut % (Auto) % Lymph % (Auto) % Wilkin % (Auto) % Eos % (Auto) % Baso % (Auto) % Neut # (Auto) (1.4-6.5) K/uL Lymph # (Auto) (1.2-3.4) K/uL Wilkin # (Auto) (0.24-0.82) K/uL Eos # (Auto) (0-0.50) K/uL Baso # (Auto) (0-0.2) K/uL Immature Gran # (Auto) (0.00-0.02) K/uL ESR (0-30) mm/hr PT (9.0-12.0) Seconds INR (0.9-1.1) APTT (21.0-31.0) Seconds PTT Ratio Sodium (136-145) mmol/L Potassium (3.5-5.1) mmol/L Chloride (98-107) mmol/L Carbon Dioxide (21-32) mmol/L Anion Gap (3-11) BUN (6-23) mg/dl Creatinine (0.6-1.2) mg/dl Est Cr Clr Drug Dosing Est GFR ( Amer) ml/min Est GFR (Non-Af Amer) ml/min BUN/Creatinine Ratio (10-20) Glucose (70-99(Fasting)) mg/dl POC Glucose 320 H* 212 H (70-99) mg/dl Estimat Average Glucose mg/dl Hemoglobin A1c (4.5-5.6) % Calcium (8.5-10.1) mg/dl Magnesium (1.7-2.4) mg/dl Total Bilirubin (0.2-1.0) mg/dl AST (13-39) U/L ALT (7-52) U/L Alkaline Phosphatase (34-104) U/L Troponin I High Sens (0-14) pg/ml C-Reactive Protein (0-0.5) mg/dl Total Protein (6.0-8.3) gm/dl Albumin (3.4-5.0) gm/dl Globulin (2.5-4.0) gm/dl Albumin/Globulin Ratio (0.9-2) Triglycerides (0-150) mg/dl Cholesterol (0-200) mg/dl LDL Cholesterol, Calc mg/dl VLDL Cholesterol, Calc (0-30) mg/dl HDL Cholesterol mg/dl Cholesterol/HDL Ratio (0-5) Procalcitonin (0-0.5) ng/ml TSH (0.300-4.500) uIu/ml Urine Color Urine Appearance (Clear) Urine pH (4.5-7.5) Ur Specific [place] (1.000-1.030) Urine Protein (Negative) Urine Glucose (UA) (Negative) Urine Ketones (Negative) Urine Blood (Negative) Urine Nitrite (Negative) Urine Bilirubin (Negative) Urine Urobilinogen (Negative) Ur Leukocyte Esterase (Negative) Urine WBC (Auto) (0-5) /hpf Urine RBC (Auto) (0-4) /hpf U Hyaline Cast (Auto) (0-5) /lpf U Epithel Cells (Auto) (0-5) /lpf Urine Bacteria (Auto) (Negative) Nasal Screen MRSA (PCR) (Negative) SARS-CoV-2, RNA, NAAT (NEGATIVE) 12/19/21 12/19/21 12/19/21 Range/Units 17:34 16:26 12:45 WBC (4.8-10.8) K/ul RBC (3.93-5.22) M/uL Hgb (12.0-16.0) g/dl Hct (34.1-44.9) % MCV (80.0-100.0) fL MCH (25.0-34.0) pg MCHC (32.0-36.0) g/dL RDW Std Deviation (36.4-46.3) fL RDW Coeff of Roni (11.5-14.5) % Plt Count (130-400) K/uL MPV (9.4-12.3) fL Immature Gran % (Auto) % Neut % (Auto) % Lymph % (Auto) % Wilkin % (Auto) % Eos % (Auto) % Baso % (Auto) % Neut # (Auto) (1.4-6.5) K/uL Lymph # (Auto) (1.2-3.4) K/uL Wilkin # (Auto) (0.24-0.82) K/uL Eos # (Auto) (0-0.50) K/uL Baso # (Auto) (0-0.2) K/uL Immature Gran # (Auto) (0.00-0.02) K/uL ESR (0-30) mm/hr PT (9.0-12.0) Seconds INR (0.9-1.1) APTT (21.0-31.0) Seconds PTT Ratio Sodium (136-145) mmol/L Potassium (3.5-5.1) mmol/L Chloride (98-107) mmol/L Carbon Dioxide (21-32) mmol/L Anion Gap (3-11) BUN (6-23) mg/dl Creatinine (0.6-1.2) mg/dl Est Cr Clr Drug Dosing Est GFR ( Amer) ml/min Est GFR (Non-Af Amer) ml/min BUN/Creatinine Ratio (10-20) Glucose (70-99(Fasting)) mg/dl POC Glucose (70-99) mg/dl Estimat Average Glucose mg/dl Hemoglobin A1c (4.5-5.6) % Calcium (8.5-10.1) mg/dl Magnesium (1.7-2.4) mg/dl Total Bilirubin (0.2-1.0) mg/dl AST (13-39) U/L ALT (7-52) U/L Alkaline Phosphatase (34-104) U/L Troponin I High Sens (0-14) pg/ml C-Reactive Protein 24.75 H (0-0.5) mg/dl Total Protein (6.0-8.3) gm/dl Albumin (3.4-5.0) gm/dl Globulin (2.5-4.0) gm/dl Albumin/Globulin Ratio (0.9-2) Triglycerides (0-150) mg/dl Cholesterol (0-200) mg/dl LDL Cholesterol, Calc mg/dl VLDL Cholesterol, Calc (0-30) mg/dl HDL Cholesterol mg/dl Cholesterol/HDL Ratio (0-5) Procalcitonin (0-0.5) ng/ml TSH (0.300-4.500) uIu/ml Urine Color Dark Yellow Urine Appearance Clear (Clear) Urine pH 5.0 (4.5-7.5) Ur Specific [place] 1.017 (1.000-1.030) Urine Protein Trace H (Negative) Urine Glucose (UA) Negative (Negative) Urine Ketones Trace H (Negative) Urine Blood Negative (Negative) Urine Nitrite Negative (Negative) Urine Bilirubin 1+ H (Negative) Urine Urobilinogen Negative (Negative) Ur Leukocyte Esterase Negative (Negative) Urine WBC (Auto) 1-5 (0-5) /hpf Urine RBC (Auto) 0-4 (0-4) /hpf U Hyaline Cast (Auto) 10-30 H (0-5) /lpf U Epithel Cells (Auto) >30 H (0-5) /lpf Urine Bacteria (Auto) Negative (Negative) Nasal Screen MRSA (PCR) (Negative) SARS-CoV-2, RNA, NAAT NEGATIVE (NEGATIVE) 12/19/21 12/19/21 12/19/21 Range/Units 12:45 12:45 12:45 WBC (4.8-10.8) K/ul RBC (3.93-5.22) M/uL Hgb (12.0-16.0) g/dl Hct (34.1-44.9) % MCV (80.0-100.0) fL MCH (25.0-34.0) pg MCHC (32.0-36.0) g/dL RDW Std Deviation (36.4-46.3) fL RDW Coeff of Roni (11.5-14.5) % Plt Count (130-400) K/uL MPV (9.4-12.3) fL Immature Gran % (Auto) % Neut % (Auto) % Lymph % (Auto) % Wilkin % (Auto) % Eos % (Auto) % Baso % (Auto) % Neut # (Auto) (1.4-6.5) K/uL Lymph # (Auto) (1.2-3.4) K/uL Wilkin # (Auto) (0.24-0.82) K/uL Eos # (Auto) (0-0.50) K/uL Baso # (Auto) (0-0.2) K/uL Immature Gran # (Auto) (0.00-0.02) K/uL ESR 127 H (0-30) mm/hr PT (9.0-12.0) Seconds INR (0.9-1.1) APTT (21.0-31.0) Seconds PTT Ratio Sodium 131 L (136-145) mmol/L Potassium 3.1 L (3.5-5.1) mmol/L Chloride 88 L (98-107) mmol/L Carbon Dioxide 28 (21-32) mmol/L Anion Gap 15 H (3-11) BUN 14 (6-23) mg/dl Creatinine 1.13 (0.6-1.2) mg/dl Est Cr Clr Drug Dosing Not Reportable Est GFR ( Amer) 59.1 ml/min Est GFR (Non-Af Amer) 51.0 ml/min BUN/Creatinine Ratio 12.4 (10-20) Glucose 261 H (70-99(Fasting)) mg/dl POC Glucose (70-99) mg/dl Estimat Average Glucose mg/dl Hemoglobin A1c (4.5-5.6) % Calcium 10.3 H (8.5-10.1) mg/dl Magnesium 1.5 L (1.7-2.4) mg/dl Total Bilirubin 0.8 (0.2-1.0) mg/dl AST 11 L (13-39) U/L ALT 13 (7-52) U/L Alkaline Phosphatase 106 H (34-104) U/L Troponin I High Sens 12.2 (0-14) pg/ml C-Reactive Protein (0-0.5) mg/dl Total Protein 8.3 (6.0-8.3) gm/dl Albumin 3.8 (3.4-5.0) gm/dl Globulin 4.5 H (2.5-4.0) gm/dl Albumin/Globulin Ratio 0.8 L (0.9-2) Triglycerides (0-150) mg/dl Cholesterol (0-200) mg/dl LDL Cholesterol, Calc mg/dl VLDL Cholesterol, Calc (0-30) mg/dl HDL Cholesterol mg/dl Cholesterol/HDL Ratio (0-5) Procalcitonin 0.78 H (0-0.5) ng/ml TSH (0.300-4.500) uIu/ml Urine Color Urine Appearance (Clear) Urine pH (4.5-7.5) Ur Specific [place] (1.000-1.030) Urine Protein (Negative) Urine Glucose (UA) (Negative) Urine Ketones (Negative) Urine Blood (Negative) Urine Nitrite (Negative) Urine Bilirubin (Negative) Urine Urobilinogen (Negative) Ur Leukocyte Esterase (Negative) Urine WBC (Auto) (0-5) /hpf Urine RBC (Auto) (0-4) /hpf U Hyaline Cast (Auto) (0-5) /lpf U Epithel Cells (Auto) (0-5) /lpf Urine Bacteria (Auto) (Negative) Nasal Screen MRSA (PCR) (Negative) SARS-CoV-2, RNA, NAAT (NEGATIVE) 12/19/21 12/19/21 Range/Units 12:45 12:45 WBC 14.74 H (4.8-10.8) K/ul RBC 4.96 (3.93-5.22) M/uL Hgb 12.5 (12.0-16.0) g/dl Hct 37.5 (34.1-44.9) % MCV 75.6 L (80.0-100.0) fL MCH 25.2 (25.0-34.0) pg MCHC 33.3 (32.0-36.0) g/dL RDW Std Deviation 38.9 (36.4-46.3) fL RDW Coeff of Roni 14.3 (11.5-14.5) % Plt Count 360 (130-400) K/uL MPV 12.3 (9.4-12.3) fL Immature Gran % (Auto) 0.7 % Neut % (Auto) 84.7 % Lymph % (Auto) 8.0 % Wilkin % (Auto) 6.3 % Eos % (Auto) 0.1 % Baso % (Auto) 0.2 % Neut # (Auto) 12.48 H (1.4-6.5) K/uL Lymph # (Auto) 1.18 L (1.2-3.4) K/uL Wilkin # (Auto) 0.93 H (0.24-0.82) K/uL Eos # (Auto) 0.01 (0-0.50) K/uL Baso # (Auto) 0.03 (0-0.2) K/uL Immature Gran # (Auto) 0.11 H (0.00-0.02) K/uL ESR (0-30) mm/hr PT 12.6 H (9.0-12.0) Seconds INR 1.2 H (0.9-1.1) APTT 33.6 H (21.0-31.0) Seconds PTT Ratio 1.2 Sodium (136-145) mmol/L Potassium (3.5-5.1) mmol/L Chloride (98-107) mmol/L Carbon Dioxide (21-32) mmol/L Anion Gap (3-11) BUN (6-23) mg/dl Creatinine (0.6-1.2) mg/dl Est Cr Clr Drug Dosing Est GFR ( Amer) ml/min Est GFR (Non-Af Amer) ml/min BUN/Creatinine Ratio (10-20) Glucose (70-99(Fasting)) mg/dl POC Glucose (70-99) mg/dl Estimat Average Glucose mg/dl Hemoglobin A1c (4.5-5.6) % Calcium (8.5-10.1) mg/dl Magnesium (1.7-2.4) mg/dl Total Bilirubin (0.2-1.0) mg/dl AST (13-39) U/L ALT (7-52) U/L Alkaline Phosphatase (34-104) U/L Troponin I High Sens (0-14) pg/ml C-Reactive Protein (0-0.5) mg/dl Total Protein (6.0-8.3) gm/dl Albumin (3.4-5.0) gm/dl Globulin (2.5-4.0) gm/dl Albumin/Globulin Ratio (0.9-2) Triglycerides (0-150) mg/dl Cholesterol (0-200) mg/dl LDL Cholesterol, Calc mg/dl VLDL Cholesterol, Calc (0-30) mg/dl HDL Cholesterol mg/dl Cholesterol/HDL Ratio (0-5) Procalcitonin (0-0.5) ng/ml TSH (0.300-4.500) uIu/ml Urine Color Urine Appearance (Clear) Urine pH (4.5-7.5) Ur Specific [place] (1.000-1.030) Urine Protein (Negative) Urine Glucose (UA) (Negative) Urine Ketones (Negative) Urine Blood (Negative) Urine Nitrite (Negative) Urine Bilirubin (Negative) Urine Urobilinogen (Negative) Ur Leukocyte Esterase (Negative) Urine WBC (Auto) (0-5) /hpf Urine RBC (Auto) (0-4) /hpf U Hyaline Cast (Auto) (0-5) /lpf U Epithel Cells (Auto) (0-5) /lpf Urine Bacteria (Auto) (Negative) Nasal Screen MRSA (PCR) (Negative) SARS-CoV-2, RNA, NAAT (NEGATIVE) Diagnostic Findings RIGHT FOOT 3 VIEWS CLINICAL HISTORY: Diabetic foot ulcer. FINDINGS: 3 views of the right foot are obtained. No prior studies are available for comparison at the time of dictation. The skeletal structures are heterogeneously osteopenic. No acute fracture is seen. There is no bony erosion or periostitis. Moderate osteoarthritic change is noted at the first metatarsophalangeal joint. Moderate arthritic change is also seen at the tarsometatarsal articulations. There is a tiny dorsal calcaneal enthesophyte. Degenerative spurring is seen along the dorsal aspect of the tarsal bones. A plantar ulceration is suggested in the forefoot on the lateral projection. There is mild soft tissue edema in the forefoot. No radiodense foreign body or soft tissue gas is seen. IMPRESSION: 1. Osteopenia and degenerative changes above with no acute bony abnormality identified. 2. A plantar ulceration is suggested in the forefoot on the lateral view. XR foot LT min 3V routine CLINICAL HISTORY: plantar diabetic ulcer, ? osteo TECHNIQUE: 3 views of the left foot were obtained. Comparison: None available at the time of this dictation. FINDINGS: No evidence of bony erosion is seen. Extensive degenerative changes are seen. Soft tissue ulceration is seen in the plantar forefoot. IMPRESSION: Plantar ulcer is noted in the forefoot. No radiographic evidence of osteomyelitis. If clinical concern remains, MRI is a more sensitive modality.
--- NOTE | 2021-12-20 13:44 | Hospitalist Progress Note ---
Date of Service December 20, 2021 Assessment & Plan (1) Diabetic foot infection: (2) Foot ulcer: Plan: Infected Bilateral diabetic foot ulcers H/O Noncompliance as per daughter Rule out Osteomyelitis --R foot X ray:Osteopenia and degenerative changes above with no acute bony abnormality identified. A plantar ulceration is suggested in the forefoot on the lateral view. --L foot X ray:Plantar ulcer is noted in the forefoot. No radiographic evidence of osteomyelitis. If clinical concern remains, MRI is a more sensitive modality. --MRI pending --Blood Culture pending --Obtain Wound Culture -- Empirically on Vanco, cefepime, Flagyl Orthopedics consulted Continue wound care (3) DM II (diabetes mellitus, type II), controlled: Plan: -Uncontrolled -On glipizide, metformin and Trulicity at home Non complaint with medications HbA1c 10.1 --Usually blood glucose is in the 300s-400s as per daughter -ISS, Lantus while hospitalized -personal development educator requested. (4) Nausea & vomiting: Plan: --CT ABD:No acute infectious or inflammatory findings are identified in the abdomen or pelvis. Mild hepatosplenomegaly. Hiatal hernia. --Gall Bladder USD:No acute sonographic abnormality is seen in the right upper quadrant. No gallstones are identified. The liver is enlarged and mildly steatotic. -- Currently no issues Monitor Right lower lobe pulmonary nodule Incidental finding on CT --CT showed: Pathologically indeterminant 11 mm right lower lobe pulmonary nodule. 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 (9) HTN (hypertension): Plan: Continue diltiazem Resume Chlorthalidone (10) DVT prophylaxis: Plan: Heparin SQ CODE STATUS: Full code Disposition PT/OT prior to discharge Admission and Anticipated Discharge Date Admission Date: December 19, 2021 Subjective Patient is seen and examined at bedside Reports having on and off right-sided abdominal discomfort since many months Nausea resolved Requesting for food Denies any chest pain, dyspnea, dizziness, pain in your foot Discussed with patient's daughter at bedside Review of Systems Review of Systems: All systems reviewed & are unremarkable except as noted in Subjective Physical Exam Physical Exam: Physical Exam: Vitals signs as noted above General Appearance:Obese, Moderately built and nourished, no apparent distress Head: normocephalic, Atraumatic Eyes: normal inspection, EOMI Neck: supple, Trachea midline Respiratory/Chest: Normal breath sounds, CTA, No accessory muscle use Cardiovascular: S1, S2, No murmur Abdomen/GI:Soft, Non tender, Bowel sounds present Extremities/Musculoskeletal:normal inspection, B/L Foot Ulcers, Trace pedal edema Neurologic/Psych:AAOX3, grossly no focal neurological deficits Skin: normal color, warm Results & Data Results & Data ([facility]) Vital Signs (Past 12 Hours) Vital Signs Temp Pulse Pulse Resp BP Pulse Ox O2 Del Method 12/20/21 11:04 36.6 C 78 18 103/61 90 Room Air 12/20/21 08:00 Room Air 12/20/21 07:25 66 12/20/21 07:16 36.5 C 67 18 111/70 90 Room Air 12/20/21 04:01 36.5 C 68 16 109/68 93 Room Air Laboratory Results Short CBC 12/20/21 Range/Units 06:27 WBC 10.08 (4.8-10.8) K/ul Hgb 11.4 L (12.0-16.0) g/dl Hct 35.1 (34.1-44.9) % Plt Count 316 (130-400) K/uL BMP 12/19/21 12/20/21 12:45 06:27 Sodium 131 L 137 Potassium 3.1 L 3.1 L Chloride 88 L 94 L Carbon Dioxide 28 33 H BUN 14 12 Creatinine 1.13 0.89 Glucose 261 H 133 H Calcium 10.3 H 10.1 Liver Function 12/19/21 Range/Units 12:45 Total Bilirubin 0.8 (0.2-1.0) mg/dl AST 11 L (13-39) U/L ALT 13 (7-52) U/L Alkaline Phosphatase 106 H (34-104) U/L Albumin 3.8 (3.4-5.0) gm/dl Urine 12/19/21 Range/Units 16:26 Urine Color Dark Yellow Urine Appearance Clear (Clear) Urine pH 5.0 (4.5-7.5) Ur Specific [place] 1.017 (1.000-1.030) Urine Protein Trace H (Negative) Urine Glucose (UA) Negative (Negative)
[2021-12-20] MEDS ORDERED: VANCOMYCIN CONSULT ACTIVE PRN (14:00)
--- NOTE | 2021-12-20 14:21 | Pharmacy Report ---
Pharmacy PK ABX Note - Date of Service December 20, 2021 - Assessment and Plan Assessment 66 year old F receiving vancomycin/cefepime/flagyl for empiric treatment of b/l foot infections. Patient does have type II DM. Blood cultures are pending. Leukocytosis has resolved. MRIs to be done to r/o osteo. Plan Vancomycin * Loading dose: 2000 mg IV x 1 * Maintenance dose: 1000 mg IV every 12 hours * Regimen is predicted to achieve target AUC/TONEY of 400-600 mg/L.hr * Random level ordered for: 12/22 @1000 Pharmacy will continue to follow and will adjust dose/frequency as necessary. Thank you. Pharmacy has transitioned to AUC monitoring for vancomycin. AUC/TONEY is the preferred PK/PD target and is associated with decreased risk of nephrotoxicity compared to traditional trough targets.
[2021-12-20] MEDS: VANCOMYCIN HCL 1,000 MG in SODIUM CHLORIDE 0.9% 250 ML IV SCH (14:43)
[2021-12-20] MEDS: LANTUS PER UNIT CHARGE SQ SCH (21:01)
[2021-12-20] MEDS: ATORVASTATIN 20 MG TAB PO SCH (21:05)
[2021-12-21] MEDS: VANCOMYCIN HCL 1,000 MG in SODIUM CHLORIDE 0.9% 250 ML IV SCH (01:21)
[2021-12-21] MEDS: CEFEPIME 2,000 MG in SYRINGE 0 ML IV SCH ×2 (02:42→15:57)
[2021-12-21] MEDS: LEVOTHYROXINE SODIUM 175 MCG TABLET PO SCH (05:30)
[2021-12-21] MEDS: HEPARIN SOD 5,000 UNIT/0.5 ML VIAL SQ SCH ×3 (05:30→21:12)
[2021-12-21 06:08] LABS: Hematocrit (blood only) 32.5 % (34.1-44.9); Hemoglobin 10.6 g/dl (12.0-16.0); Mean Corpuscular Hemoglobin 25.2 pg (25.0-34.0); Mean Corpuscular Hgb Conc 32.6 g/dL (32.0-36.0); Mean Corpuscular Volume 77.2 fL (80.0-100.0); Mean Platelet Volume 12.4 fL (9.4-12.3); Platelet Count 280 K/uL (130-400); RDW Coefficient of Variation 14.5 % (11.5-14.5); RDW Standard Deviation 40.4 fL (36.4-46.3); Red Blood Count 4.21 M/uL (3.93-5.22); White Blood Count 6.04 K/ul (4.8-10.8)
[2021-12-21] MEDS: metroNIDAZOLE 500 MG/100 ML BAG IV SCH ×3 (06:24→23:59)
[2021-12-21 06:39] LABS: BUN Creatinine Ratio 20.5 (10-20); Calcium 9.2 mg/dl (8.5-10.1); Creatinine Clr Calc Pharmacy 95.5 ml/min; Est GFR (African American) 100.2 ml/min; Est GFR (Non-African American) 86.4 ml/min; Magnesium 1.7 mg/dl (1.7-2.4); Potassium 3.2 mmol/L (3.5-5.1)
[2021-12-21] MEDS ORDERED: POTASSIUM CHLORIDE CRTAB 20 MEQ TABCR PO ONE ×2 (08:15→16:00)
[2021-12-21] MEDS ORDERED: NSS + 20MEQ KCL 20 MEQ/1,000 ML BAG IV ONE (08:30)
[2021-12-21] MEDS: LANTUS PER UNIT CHARGE SQ SCH ×2 (08:36→21:07)
[2021-12-21] MEDS: INSULIN ASPART PER UNIT SC SCH ×4 (08:37→21:07)
[2021-12-21] MEDS: FLUoxetine HCL 20 MG CAP PO SCH (08:38)
[2021-12-21] MEDS: PANTOprazole 40 MG TAB PO SCH (08:39)
[2021-12-21] MEDS: DOCUSATE SODIUM/SENNA 50/8.6MG TAB PO SCH (08:39)
[2021-12-21] MEDS: dilTIAZem ER 180 MG CAPCR PO SCH (08:39)
[2021-12-21] MEDS: ASPIRIN 81 MG ECTAB PO SCH (08:40)
[2021-12-21] MEDS: CHOLECALCIFEROL 1,000 UNITS 25 MCG TAB PO SCH (08:40)
[2021-12-21] MEDS: ACETAMINOPHEN 325 MG TAB PO PRN (08:55)
--- NOTE | 2021-12-21 11:36 | Hospitalist Progress Note ---
Date of Service December 21, 2021 Assessment & Plan (1) Diabetic foot infection: (2) Foot ulcer: Plan: Infected Bilateral diabetic foot ulcers H/O Noncompliance as per daughter Rule out Osteomyelitis --R foot X ray:Osteopenia and degenerative changes above with no acute bony abnormality identified. A plantar ulceration is suggested in the forefoot on the lateral view. --L foot X ray:Plantar ulcer is noted in the forefoot. No radiographic evidence of osteomyelitis. If clinical concern remains, MRI is a more sensitive modality. --MRI pending --Blood Culture no growth to date --Wound Culture pending -- Empirically on Vanco, cefepime, Flagyl Orthopedics on board Continue wound care (3) DM II (diabetes mellitus, type II), controlled: Plan: -Uncontrolled -On glipizide, metformin and Trulicity at home Non complaint with medications HbA1c 10.1 --Usually blood glucose is in the 300s-400s as per daughter -ISS, Lantus while hospitalized -inclusion special educator requested. (4) Nausea & vomiting: Plan: --CT ABD:No acute infectious or inflammatory findings are identified in the abdomen or pelvis. Mild hepatosplenomegaly. Hiatal hernia. --Gall Bladder USD:No acute sonographic abnormality is seen in the right upper quadrant. No gallstones are identified. The liver is enlarged and mildly steato tic. -- Currently no issues Monitor Right lower lobe pulmonary nodule--chronic Patient aware of Pulm nodule H/O Tobacco use --CT showed: Pathologically indeterminant 11 mm right lower lobe pulmonary nodule. 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 (9) HTN (hypertension): Plan: Continue diltiazem Resume Chlorthalidone as able (10) DVT prophylaxis: Plan: Heparin SQ CODE STATUS: Full code Disposition PT/OT prior to discharge Admission and Anticipated Discharge Date Admission Date: December 19, 2021 Subjective Patient is seen and examined at bedside States feeling better today Reports minimal back discomfort Tolerating diet, abdominal pain resolved Denies any significant pain Discussed with patient's daughter over the phone Also denies any chest pain, dyspnea, dizziness MRI pending Review of Systems Review of Systems: All systems reviewed & are unremarkable except as noted in Subjective Physical Exam Physical Exam: Physical Exam: Vitals signs as noted above General Appearance:Obese, Moderately built and nourished, no apparent distress Head: normocephalic, Atraumatic Eyes: normal inspection, EOMI Neck: supple, Trachea midline Respiratory/Chest: Normal breath sounds, CTA, No accessory muscle use Cardiovascular: S1, S2, No murmur Abdomen/GI:Soft, Non tender, Bowel sounds present Extremities/Musculoskeletal:normal inspection, B/L Foot Ulcers, Trace pedal edema Neurologic/Psych:AAOX3, grossly no focal neurological deficits Skin: normal color, warm Results & Data Results & Data ([facility]) Vital Signs (Past 12 Hours) Vital Signs Temp Pulse Resp BP Pulse Ox O2 Del Method O2 Flow Rate 12/21/21 11:24 36.5 C 66 18 113/74 97 2 12/21/21 07:43 36.5 C 53 L 18 103/68 96 2 12/21/21 03:08 36.5 C 64 18 111/63 94 Room Air 12/21/21 00:27 Nasal Cannula 2 Laboratory Results Short CBC 12/21/21 Range/Units 05:31 WBC 6.04 (4.8-10.8) K/ul Hgb 10.6 L (12.0-16.0) g/dl Hct 32.5 L (34.1-44.9) % Plt Count 280 (130-400) K/uL BMP 12/21/21 05:31 Sodium 136 Potassium 3.2 L Chloride 100 Carbon Dioxide 27 BUN 15 Creatinine 0.73 Glucose 224 H Calcium 9.2
[2021-12-21] MEDS ORDERED: GADOBUTROL 65ML VIAL IV ONE (13:47)
--- NOTE | 2021-12-21 14:39 | Orthopedic Progress Note ---
Date of Service December 21, 2021 Assessment & Plan (1) Diabetic foot ulcers: Plan: MRI of the patient's right foot has been completed and shows evidence of osteomyelitis extending from the head to the base of the second and third metatarsals. Patient was seen by the wound care nurse and had her dressings changed. She states that the wound care nurses planning on coming back after her MRIs are completed to apply a silver type dressing. Orthopedically the patient is stable. Once she is cleared by medicine service she can be discharged and follow with her mining technician in [place] to manage he is diabetic ulcers on her feet. Most likely she would require surgical excision of the osteomyelitic bony structures. Admission and Anticipated Discharge Date Admission Date: December 19, 2021 Supervising Physician Co-Signing Physician Notes I saw patient with LUISITO Zuleta today, and reviewed her MRI. Agree with radiologist that she has evidence of osteomyelitis in both feet, right worse than left. Recommend patient follow-up with her mining technician in [place] upon dischargre. She is likely going to need a transmetatarsal amputation on the right foot, toe amp on the left foot, but this can be done electively. She should continue on antibiotics per internal medicine. Subjective 66-year-old female seen this morning following up on diabetic ulcers to the plantar surface of both feet. Patient states that she feels that the redness has subsided significantly but she still has swelling. She states that she currently follows with a mining technician in [facility] and would prefer to continue following with him after being discharged in the hospital. Currently she denies chest pain, shortness of breath, fever, chills, sweats or any change in numbness and tingling that she normally extremity. Review of Systems Review of Systems: All systems reviewed & are unremarkable except as noted in Subjective Physical Exam Physical Exam: Right foot: Patient has a quarter size lesion on the plantar surface of her foot near the head of the second and third metatarsal. There is also significant edema over the entire dorsum of the foot. When the foot was compressed manually approximately 5/10 mL of foul-smelling purulent/muniz-colored fluctuance drained from the open lesion. Patient states that this was painful. Her peripheral pulses were 1+. Capillary refill was unable to be determined due to her toenail onychomycosis. There was no noted erythema or warmth to the foot. Patient had limited range of motion with dorsi and plantar flexion. She was unable to detect light station to touch over the pads of her digits. She was able to feel us touching her above the ankle. Results & Data ([facility]) Vital Signs (Past 12 Hours) Vital Signs Temp Pulse Pulse Resp BP Pulse Ox O2 Del Method 12/21/21 08:40 Room Air 12/21/21 08:00 57 L 12/21/21 11:24 36.5 C 66 18 113/74 97 12/21/21 07:43 36.5 C 53 L 18 103/68 96 12/21/21 03:08 36.5 C 64 18 111/63 94 Room Air O2 Flow Rate 12/21/21 08:40 12/21/21 08:00 12/21/21 11:24 2 12/21/21 07:43 2 12/21/21 03:08 Diagnostic Findings Laboratory Results WBC 6.04 K/ul (4.8-10.8) 12/21/21 05:31 RBC 4.21 M/uL (3.93-5.22) 12/21/21 05:31 Hgb 10.6 g/dl (12.0-16.0) L 12/21/21 05:31 Hct 32.5 % (34.1-44.9) L 12/21/21 05:31 MCV 77.2 fL (80.0-100.0) L 12/21/21 05:31 MCH 25.2 pg (25.0-34.0) 12/21/21 05:31 MCHC 32.6 g/dL (32.0-36.0) 12/21/21 05:31 RDW Std Deviation 40.4 fL (36.4-46.3) 12/21/21 05:31 RDW Coeff of Roni 14.5 % (11.5-14.5) 12/21/21 05:31 Plt Count 280 K/uL (130-400) 12/21/21 05:31 MPV 12.4 fL (9.4-12.3) H 12/21/21 05:31 Immature Gran % (Auto) 0.7 % 12/19/21 12:45 Neut % (Auto) 84.7 % 12/19/21 12:45 Lymph % (Auto) 8.0 % 12/19/21 12:45 [place] % (Auto) 6.3 % 12/19/21 12:45 Eos % (Auto) 0.1 % 12/19/21 12:45 Baso % (Auto) 0.2 % 12/19/21 12:45 Neut # (Auto) 12.48 K/uL (1.4-6.5) H 12/19/21 12:45 Lymph # (Auto) 1.18 K/uL (1.2-3.4) L 12/19/21 12:45 [place] # (Auto) 0.93 K/uL (0.24-0.82) H 12/19/21 12:45 Eos # (Auto) 0.01 K/uL (0-0.50) 12/19/21 12:45 Baso # (Auto) 0.03 K/uL (0-0.2) 12/19/21 12:45 Immature Gran # (Auto) 0.11 K/uL (0.00-0.02) H 12/19/21 12:45 ESR 127 mm/hr (0-30) H 12/19/21 12:45 PT 12.6 Seconds (9.0-12.0) H 12/19/21 12:45 INR 1.2 (0.9-1.1) H 12/19/21 12:45 APTT 33.6 Seconds (21.0-31.0) H 12/19/21 12:45 PTT Ratio 1.2 12/19/21 12:45 Sodium 136 mmol/L (136-145) 12/21/21 05:31 Potassium 3.2 mmol/L (3.5-5.1) L 12/21/21 05:31 Chloride 100 mmol/L (98-107) 12/21/21 05:31 Carbon Dioxide 27 mmol/L (21-32) 12/21/21 05:31 Anion Gap 9 (3-11) 12/21/21 05:31 BUN 15 mg/dl (6-23) 12/21/21 05:31 Creatinine 0.73 mg/dl (0.6-1.2) 12/21/21 05:31 Est Cr Clr Drug Dosing 95.5 ml/min 12/21/21 05:31 Est GFR ( Amer) 100.2 ml/min 12/21/21 05:31 Est GFR (Non-Af Amer) 86.4 ml/min 12/21/21 05:31 BUN/Creatinine Ratio 20.5 (10-20) H 12/21/21 05:31 Glucose 224 mg/dl (70-99(Fasting)) H 12/21/21 05:31 POC Glucose 229 mg/dl (70-99) H 12/21/21 11:41 Estimat Average Glucose 243 mg/dl 12/20/21 06:27 Hemoglobin A1c 10.1 % (4.5-5.6) H 12/20/21 06:27 Calcium 9.2 mg/dl (8.5-10.1) 12/21/21 05:31 Magnesium 1.7 mg/dl (1.7-2.4) 12/21/21 05:31 Total Bilirubin 0.8 mg/dl (0.2-1.0) 12/19/21 12:45 AST 11 U/L (13-39) L 12/19/21 12:45 ALT 13 U/L (7-52) 12/19/21 12:45 Alkaline Phosphatase 106 U/L (34-104) H 12/19/21 12:45 Troponin I High Sens 12.2 pg/ml (0-14) 12/19/21 12:45 C-Reactive Protein 24.75 mg/dl (0-0.5) H 12/19/21 12:45 Total Protein 8.3 gm/dl (6.0-8.3) 12/19/21 12:45 Albumin 3.8 gm/dl (3.4-5.0) 12/19/21 12:45 Globulin 4.5 gm/dl (2.5-4.0) H 12/19/21 12:45 Albumin/Globulin Ratio 0.8 (0.9-2) L 12/19/21 12:45 Triglycerides 129 mg/dl (0-150) 12/20/21 06:27 Cholesterol 150 mg/dl (0-200) 12/20/21 06:27 LDL Cholesterol, Calc 102 mg/dl 12/20/21 06:27 VLDL Cholesterol, Calc 26 mg/dl (0-30) 12/20/21 06:27 HDL Cholesterol 22 mg/dl 12/20/21 06:27 Cholesterol/HDL Ratio 6.8 (0-5) H 12/20/21 06:27 Procalcitonin 0.78 ng/ml (0-0.5) H 12/19/21 12:45 TSH 0.341 uIu/ml (0.300-4.500) 12/20/21 06:27 Urine Color Dark Yellow 12/19/21 16:26 Urine Appearance Clear (Clear) 12/19/21 16:26 Urine pH 5.0 (4.5-7.5) 12/19/21 16:26 Ur Specific [place] 1.017 (1.000-1.030) 12/19/21 16:26 Urine Protein Trace (Negative) H 12/19/21 16:26 Urine Glucose (UA) Negative (Negative) 12/19/21 16: Urine Ketones Trace (Negative) H 12/19/21 16:26 Urine Blood Negative (Negative) 12/19/21 16: Urine Nitrite Negative (Negative) 12/19/21 16:26 Urine Bilirubin 1+ (Negative) H 12/19/21 16:26 Urine Urobilinogen Negative (Negative) 12/19/21 16:26 Ur Leukocyte Esterase Negative (Negative) 12/19/21 16:26 Urine WBC (Auto) 1-5 /hpf (0-5) 12/19/21 16:26 Urine RBC (Auto) 0-4 /hpf (0-4) 12/19/21 16:26 U Hyaline Cast (Auto) 10-30 /lpf (0-5) H 12/19/21 16:26 U Epithel Cells (Auto) >30 /lpf (0-5) H 12/19/21 16:26 Urine Bacteria (Auto) Negative (Negative) 12/19/21 16:26 Nasal Screen MRSA (PCR) Negative (Negative) 12/20/21 09:33 SARS-CoV-2, RNA, NAAT NEGATIVE (NEGATIVE) 12/19/21 17:34 Foot X-Ray 12/19/21 14:47 XR foot LT min 3V routine CLINICAL HISTORY: plantar diabetic ulcer, ? osteo TECHNIQUE: 3 views of the left foot were obtained. Comparison: None available at the time of this dictation. FINDINGS: No evidence of bony erosion is seen. Extensive degenerative changes are seen. Soft tissue ulceration is seen in the plantar forefoot. IMPRESSION: Plantar ulcer is noted in the forefoot. No radiographic evidence of osteomyelitis. If clinical concern remains, MRI is a more sensitive modality. ACT 112: Negative or not required by law. RIGHT FOOT 3 VIEWS CLINICAL HISTORY: Diabetic foot ulcer. FINDINGS: 3 views of the right foot are obtained. No prior studies are available for comparison at the time of dictation. The skeletal structures are heterogeneously osteopenic. No acute fracture is seen. There is no bony erosion or periostitis. Moderate osteoarthritic change is noted at the first metatarsophalangeal joint. Moderate arthritic change is also seen at the tarsometatarsal articulations. There is a tiny dorsal calcaneal enthesophyte. Degenerative spurring is seen along the dorsal aspect of the tarsal bones. A plantar ulceration is suggested in the forefoot on the lateral projection. There is mild soft tissue edema in the forefoot. No radiodense foreign body or soft tissue gas is seen. IMPRESSION: 1. Osteopenia and degenerative changes above with no acute bony abnormality identified. 2. A plantar ulceration is suggested in the forefoot on the lateral view. Electronically signed by: Kan Croft M.D. 12/19/2021 3:39 PM
--- NOTE | 2021-12-21 14:45 | Magnetic Resonance Report ---
MRI OF THE BRAIN WITHOUT AND WITH IV CONTRAST CLINICAL HISTORY: Meningioma. COMPARISON STUDY: None available at time of interpretation. TECHNIQUE: Utilizing a 1.5 Nichelle magnet and dedicated coil, multiplanar, multiecho imaging of the br ain was performed pre and postcontrast administration. IV administration of Gadavist contrast was un eventful. Thin cut T1 post contrast imaging was performed. FINDINGS: There are no foci of restricted diffusion to suggest acute infarct. No acute intracranial h emorrhage, midline shift or mass effect is present. Ventricular system is unremarkable. Basal cistern s are patent. There are no extra-axial collections. Flow-voids for the major intracranial vessels are present. Note is made of an enhancing 1.4 x 1.2 x 1.5 cm extra-axial lesion overlying the anterior m edial left frontal lobe. There is mild associated dural thickening. No additional intracranial masses are present. White matter T2 hyperintense foci favor small vessel disease. No suspicious calvarial m arrow replacement is present. Orbits are unremarkable. There is no evidence for sinusitis. IMPRESSION: 1. No acute intracranial findings. 2. 1.5 cm extra-axial enhancing lesion overlying the anterior medial left frontal lobe. This is sugge stive of a meningioma. Comparison with prior imaging studies, if available, is recommended. In the ab sence of prior studies, a follow-up MRI of the brain in 6 months is recommended. ACT 112: Negative or not required by law. Electronically signed by: Trever Sanchez M.D. 12/21/2021 2:44 PM
--- NOTE | 2021-12-21 14:46 | Magnetic Resonance Report ---
MR foot RT wo/w con, MR foot LT wo/w con CLINICAL HISTORY: Eval for osteomyelitis TECHNIQUE: Multiplanar multisequence MR images of the bilateral foot were obtained without and with c ontrast. Comparison: Comparison is made to right foot radiograph 12/19/2021 FINDINGS: Exam is limited by patient motion. Right foot: Bone marrow edema is seen in the entire second metatarsal, as well as the mid to distal t hird metatarsal, second and third proximal phalanx, and second digit middle phalanx. There is diffuse soft tissue edema in the plantar surface of the foot and probably the second digit with involvement of the first and third digit as well. A soft tissue defect in the plantar foot is noted. No drainable fluid collection is seen. Left foot: Bone marrow edema is seen in the proximal phalanx of the second digit. Degenerative change s are seen with some edema in the first digit interphalangeal joint. Soft tissue swelling and plantar ulcer are seen. No drainable fluid collection. IMPRESSION: 1. Osteomyelitis and cellulitis are seen in the right greater than left feet. No drainable fluid col lections are seen. In the right foot, there is involvement of the second and third metatarsals, secon d and third proximal phalanges, and second digit middle phalanx. 2. Degenerative changes are seen in the bilateral feet. ACT 112: Negative or not required by law. Electronically signed by: Juarez Doherty M.D. 12/21/2021 2:45 PM
[2021-12-21] MEDS: VANCOMYCIN HCL 1,250 MG in SODIUM CHLORIDE 0.9% 250 ML IV SCH (17:12)
[2021-12-21] MEDS: ACETAMINOPHEN 500 MG TAB PO PRN (19:40)
[2021-12-21] MEDS: ATORVASTATIN 20 MG TAB PO SCH (21:11)
[2021-12-22] MEDS: VANCOMYCIN HCL 1,250 MG in SODIUM CHLORIDE 0.9% 250 ML IV SCH (00:08)
[2021-12-22] MEDS: CEFEPIME 2,000 MG in SYRINGE 0 ML IV SCH ×2 (03:21→15:35)
[2021-12-22] MEDS: metroNIDAZOLE 500 MG/100 ML BAG IV SCH (06:01)
[2021-12-22] MEDS: LEVOTHYROXINE SODIUM 175 MCG TABLET PO SCH (06:02)
[2021-12-22] MEDS: HEPARIN SOD 5,000 UNIT/0.5 ML VIAL SQ SCH ×3 (06:02→22:00)
[2021-12-22] MEDS ORDERED: POTASSIUM CHLORIDE CRTAB 20 MEQ TABCR PO SCH (09:00)
[2021-12-22] MEDS: LANTUS PER UNIT CHARGE SQ SCH (09:04)
[2021-12-22] MEDS: INSULIN ASPART PER UNIT SC SCH ×4 (09:04→22:01)
[2021-12-22] MEDS: ASPIRIN 81 MG ECTAB PO SCH (09:06)
[2021-12-22] MEDS: CHOLECALCIFEROL 1,000 UNITS 25 MCG TAB PO SCH (09:06)
[2021-12-22] MEDS: FLUoxetine HCL 20 MG CAP PO SCH (09:06)
[2021-12-22] MEDS: PANTOprazole 40 MG TAB PO SCH (09:06)
[2021-12-22] MEDS: dilTIAZem ER 180 MG CAPCR PO SCH (09:07)
[2021-12-22] MEDS: DOCUSATE SODIUM/SENNA 50/8.6MG TAB PO SCH (09:07)
[2021-12-22] MEDS ORDERED: POTASSIUM CHLORIDE CRTAB 20 MEQ TABCR PO ONE (09:10)
--- NOTE | 2021-12-22 11:09 | Orthopedic Progress Note ---
Date of Service December 22, 2021 Assessment & Plan (1) Diabetic foot ulcers: Plan: Spent approximately 1 hour discussing the MRI results with the patient, her daughter and niece. Her daughter recommends that the patient be provided with a psychiatry consult. They would also like her to see our clinical tech Dr. Corey Sainz because they are not confident with the clinical tech that currently follows the patient in [place]. Daughter states that she would like to be present when all consultations take place. She would also like to discuss the patient's management of care with case management services. I relayed all this information to the charge nurse. I did place consultation orders for psychiatry consult as well as for podiatry. Continue IV medication ordered by medicine service Pain control with p.o. medication Orthopedically patient is stable and we will sign off at this point. Patient will need to discuss surgical intervention with podiatry service Case management will be with the patient's daughter when she arrives later today. Admission and Anticipated Discharge Date Admission Date: December 19, 2021 Subjective 66-year-old female seen this morning following up on diabetic ulcers to the plantar surface of both feet. I discussed the results of the MRI studies of patient's feet with her, as well as with her daughter and niece via telephone. Patient states that she does not feel that she wants to see the clinical tech that has been following her in [place] would like that a consultation order be placed to see our clinical tech Dr. Corey Sainz. Patient's daughter also would like patient to have a psychiatry consult due to her chronic depression and anxiety as a result of multiple deaths occurring in her family over the past year. Patient is very tearful when I advised her that she will most likely need a transmetatarsal amputation of her right foot and a ray resection of the second toe on her left foot. Patient's daughter states that she would like to talk with case management as well as any providers that her caring for her mother or any consultants that may be seen in her while she is in-house. Currently she denies chest pain, shortness of breath, fever, chills, sweats or any change in numbness and tingling that she normally extremity. Review of Systems Review of Systems: All systems reviewed & are unremarkable except as noted in Subjective Physical Exam Physical Exam: Right foot: Patient has a quarter size lesion on the plantar surface of her foot near the head of the second and third metatarsal. Outer dressing was peeled back slightly and silver dressing packed into the wound was pulled out slightly revealing foul-smelling purulent/muniz-colored fluctuance drained from the open lesion. Her peripheral pulses were 1+. Capillary refill was unable to be determined due to her toenail onychomycosis. There was no noted erythema or warmth to the foot. Patient had limited range of motion with dorsi and plantar flexion. She was unable to detect light station to touch over the pads of her digits. She was able to feel us touching her above the ankle. Left foot: Outer dressing was also peeled back in silver dressing slightly withdrawn from the wound revealing a dime sized ulceration at the level of the distal second metatarsal on the plantar surface. There is also some foul- smelling purulent/muniz fluid draining from this wound.. Peripheral pulses were 1+. Capillary refill was unable to be detected due to toenail onychomycosis. There is no erythema, ecchymosis, warmth or palpable formerly. There was some minimal edema over the dorsal surface of the foot. Patient was able to detect light sensation to touch from the midfoot proximally. Results & Data ([facility]) Vital Signs (Past 12 Hours) Vital Signs Temp Pulse Pulse Pulse Pulse Resp BP 12/22/21 07:57 36.4 C L 58 L 18 106/73 12/22/21 07:24 56 L 12/22/21 05:00 60 12/22/21 03:07 36.5 C 58 L 18 113/68 12/22/21 02:00 56 L 12/21/21 23:05 36.6 C 58 L 18 143/77 H 12/21/21 23:41 55 L Pulse Ox Pulse Ox Pulse Ox O2 Del Method O2 Del Method O2 Del Method O2 Flow Rate 12/22/21 07:57 97 2 12/22/21 07:24 12/22/21 05:00 99 Nasal Cannula 12/22/21 03:07 97 Nasal Cannula 2 12/22/21 02:00 95 85 L Nasal Cannula Room Air 12/21/21 23:05 95 Room Air 12/21/21 23:41 93 Room Air O2 Flow Rate O2 Flow Rate 12/22/21 07:57 12/22/21 07:24 12/22/21 05:00 2 12/22/21 03:07 12/22/21 02:00 2 12/21/21 23:05 12/21/21 23:41 Diagnostic Findings Laboratory Results WBC 6.04 K/ul (4.8-10.8) 12/21/21 05:31 RBC 4.21 M/uL (3.93-5.22) 12/21/21 05:31 Hgb 10.6 g/dl (12.0-16.0) L 12/21/21 05:31 Hct 32.5 % (34.1-44.9) L 12/21/21 05:31 MCV 77.2 fL (80.0-100.0) L 12/21/21 05:31 MCH 25.2 pg (25.0-34.0) 12/21/21 05:31 MCHC 32.6 g/dL (32.0-36.0) 12/21/21 05:31 RDW Std Deviation 40.4 fL (36.4-46.3) 12/21/21 05:31 RDW Coeff of Roni 14.5 % (11.5-14.5) 12/21/21 05:31 Plt Count 280 K/uL (130-400) 12/21/21 05:31 MPV 12.4 fL (9.4-12.3) H 12/21/21 05:31 Immature Gran % (Auto) 0.7 % 12/19/21 12:45 Neut % (Auto) 84.7 % 12/19/21 12:45 Lymph % (Auto) 8.0 % 12/19/21 12:45 [place] % (Auto) 6.3 % 12/19/21 12:45 Eos % (Auto) 0.1 % 12/19/21 12:45 Baso % (Auto) 0.2 % 12/19/21 12:45 Neut # (Auto) 12.48 K/uL (1.4-6.5) H 12/19/21 12:45 Lymph # (Auto) 1.18 K/uL (1.2-3.4) L 12/19/21 12:45 [place] # (Auto) 0.93 K/uL (0.24-0.82) H 12/19/21 12:45 Eos # (Auto) 0.01 K/uL (0-0.50) 12/19/21 12:45 Baso # (Auto) 0.03 K/uL (0-0.2) 12/19/21 12:45 Immature Gran # (Auto) 0.11 K/uL (0.00-0.02) H 12/19/21 12:45 ESR 127 mm/hr (0-30) H 12/19/21 12:45 PT 12.6 Seconds (9.0-12.0) H 12/19/21 12:45 INR 1.2 (0.9-1.1) H 12/19/21 12:45 APTT 33.6 Seconds (21.0-31.0) H 12/19/21 12:45 PTT Ratio 1.2 12/19/21 12:45 Sodium 136 mmol/L (136-145) 12/21/21 05:31 Potassium 3.2 mmol/L (3.5-5.1) L 12/21/21 05:31 Chloride 100 mmol/L (98-107) 12/21/21 05:31 Carbon Dioxide 27 mmol/L (21-32) 12/21/21 05:31 Anion Gap 9 (3-11) 12/21/21 05:31 BUN 15 mg/dl (6-23) 12/21/21 05:31 Creatinine 0.73 mg/dl (0.6-1.2) 12/21/21 05:31 Est Cr Clr Drug Dosing 95.5 ml/min 12/21/21 05:31 Est GFR ( Amer) 100.2 ml/min 12/21/21 05:31 Est GFR (Non-Af Amer) 86.4 ml/min 12/21/21 05:31 BUN/Creatinine Ratio 20.5 (10-20) H 12/21/21 05:31 Glucose 224 mg/dl (70-99(Fasting)) H 12/21/21 05:31 POC Glucose 182 mg/dl (70-99) H 12/22/21 07:47 Estimat Average Glucose 243 mg/dl 12/20/21 06:27 Hemoglobin A1c 10.1 % (4.5-5.6) H 12/20/21 06:27 Calcium 9.2 mg/dl (8.5-10.1) 12/21/21 05:31 Magnesium 1.7 mg/dl (1.7-2.4) 12/21/21 05:31 Total Bilirubin 0.8 mg/dl (0.2-1.0) 12/19/21 12:45 AST 11 U/L (13-39) L 12/19/21 12:45 ALT 13 U/L (7-52) 12/19/21 12:45 Alkaline Phosphatase 106 U/L (34-104) H 12/19/21 12:45 Troponin I High Sens 12.2 pg/ml (0-14) 12/19/21 12:45 C-Reactive Protein 24.75 mg/dl (0-0.5) H 12/19/21 12:45 Total Protein 8.3 gm/dl (6.0-8.3) 12/19/21 12:45 Albumin 3.8 gm/dl (3.4-5.0) 12/19/21 12:45 Globulin 4.5 gm/dl (2.5-4.0) H 12/19/21 12:45 Albumin/Globulin Ratio 0.8 (0.9-2) L 12/19/21 12:45 Triglycerides 129 mg/dl (0-150) 12/20/21 06:27 Cholesterol 150 mg/dl (0-200) 12/20/21 06:27 LDL Cholesterol, Calc 102 mg/dl 12/20/21 06:27 VLDL Cholesterol, Calc 26 mg/dl (0-30) 12/20/21 06:27 HDL Cholesterol 22 mg/dl 12/20/21 06:27 Cholesterol/HDL Ratio 6.8 (0-5) H 12/20/21 06:27 Procalcitonin 0.78 ng/ml (0-0.5) H 12/19/21 12:45 TSH 0.341 uIu/ml (0.300-4.500) 12/20/21 06:27 Urine Color Dark Yellow 12/19/21 16:26 Urine Appearance Clear (Clear) 12/19/21 16:26 Urine pH 5.0 (4.5-7.5) 12/19/21 16:26 Ur Specific [place] 1.017 (1.000-1.030) 12/19/21 16:26 Urine Protein Trace (Negative) H 12/19/21 16:26 Urine Glucose (UA) Negative (Negative) 12/19/21 16:26 Urine Ketones Trace (Negative) H 12/19/21 16:26 Urine Blood Negative (Negative) 12/19/21 16:26 Urine Nitrite Negative (Negative) 12/19/21 16:26 Urine Bilirubin 1+ (Negative) H 12/19/21 16:26 Urine Urobilinogen Negative (Negative) 12/19/21 16:26 Ur Leukocyte Esterase Negative (Negative) 12/19/21 16:26 Urine WBC (Auto) 1-5 /hpf (0-5) 12/19/21 16:26 Urine RBC (Auto) 0-4 /hpf (0-4) 12/19/21 16:26 U Hyaline Cast (Auto) 10-30 /lpf (0-5) H 12/19/21 16:26 U Epithel Cells (Auto) >30 /lpf (0-5) H 12/19/21 16:26 Urine Bacteria (Auto) Negative (Negative) 12/19/21 16:26 Nasal Screen MRSA (PCR) Negative (Negative) 12/20/21 09:33 SARS-CoV-2, RNA, NAAT NEGATIVE (NEGATIVE) 12/19/21 17:34 Impressions Foot X-Ray 12/19/21 14:47 XR foot LT min 3V routine CLINICAL HISTORY: plantar diabetic ulcer, ? osteo TECHNIQUE: 3 views of the left foot were obtained. Comparison: None available at the time of this dictation. FINDINGS: No evidence of bony erosion is seen. Extensive degenerative changes are seen. Soft tissue ulceration is seen in the plantar forefoot. IMPRESSION: Plantar ulcer is noted in the forefoot. No radiographic evidence of osteomyelitis. If clinical concern remains, MRI is a more sensitive modality. ACT 112: Negative or not required by law. Electronically signed by: Juarez Doherty M.D. 12/19/2021 3:53 PM Foot MRI 12/21/21 06:13 MR foot RT wo/w con, MR foot LT wo/w con CLINICAL HISTORY: Eval for osteomyelitis TECHNIQUE: Multiplanar multisequence MR images of the bilateral foot were obtained without and with contrast. Comparison: Comparison is made to right foot radiograph 12/19/2021 FINDINGS: Exam is limited by patient motion. Right foot: Bone marrow edema is seen in the entire second metatarsal, as well as the mid to distal third metatarsal, second and third proximal phalanx, and second digit middle phalanx. There is diffuse soft tissue edema in the plantar surface of the foot and probably the second digit with involvement of the first and third digit as well. A soft tissue defect in the plantar foot is noted. No drainable fluid collection is seen. Left foot: Bone marrow edema is seen in the proximal phalanx of the second digit. Degenerative changes are seen with some edema in the first digit interphalangeal joint. Soft tissue swelling and plantar ulcer are seen. No drainable fluid collection. IMPRESSION: 1. Osteomyelitis and cellulitis are seen in the right greater than left feet. No drainable fluid collections are seen. In the right foot, there is involvement of the second and third metatarsals, second and third proximal phalanges, and second digit middle phalanx. 2. Degenerative changes are seen in the bilateral feet. ACT 112: Negative or not required by law. Electronically signed by: Juarez Doherty M.D. 12/21/2021 2:45 PM
[2021-12-22 11:53] LABS: BUN Creatinine Ratio 16.9 (10-20); Calcium 9.3 mg/dl (8.5-10.1); Creatinine Clr Calc Pharmacy 100.7 ml/min; Est GFR (African American) 103.6 ml/min; Est GFR (Non-African American) 89.4 ml/min; Magnesium 1.4 mg/dl (1.7-2.4); Potassium 3.5 mmol/L (3.5-5.1)
[2021-12-22] MEDS ORDERED: VANCOMYCIN HCL 1,500 MG in SODIUM CHLORIDE 0.9% 500 ML IV SCH (12:00)
[2021-12-22] MEDS ORDERED: PHARMACY GLYCEMIC MGMT CONSULT PRN (12:01)
[2021-12-22] MEDS: MAGNESIUM SULFATE / D5W 1 GM/100 ML BAG IV SCH ×2 (12:33→17:09)
--- NOTE | 2021-12-22 12:38 | Pharmacy Report ---
Pharmacy Glycemic Short Note 2 - Date of Service December 22, 2021 - Glycemic Short BSG Results (Last 24 hours): 12/21/21 12/21/21 12/22/21 15:45 20:08 07:47 Glucose POC Glucose 166 H 277 H 182 H 12/22/21 12/22/21 10:29 11:35 Glucose 313 H* POC Glucose 279 H OUTPATIENT ANTIDIABETIC REGIMEN: * Metformin 1gm PO BID * Glipizide 10mg PO BID * Trulicity 1.5mg SQ weekly * HbA1c: 10.1% (12/20/21) ASSESSMENT: * Ms Staton is a 66yo diabetic F admitted with b/l foot cellulitis/osteomyelitis. * She has some DM med compliance issues (see CDE note for more details as well as discharge recommendations). * Pt has been hyperglycemic during admission. Pharmacy consulted this afternoon to aid with glycemic mgmt. * Lantus increased beginning this evening for fasting BSG above goal. * Novolog parameters adjusted to provide additional carb coverage for better control throughout the day. * Pt is receiving vancomycin, metronidazole, and cefepime. * Will target strict glycemic control in the setting of infection. PLAN FOR INPATIENT GLYCEMIC CONTROL: * Hold outpatient oral diabetes medications * Basal insulin * Lantus 8 units SQ BID * Bolus insulin * NovoLog per scale ACHS or Q6hrs while NPO * Goal Range: Low 110 mg/dL - High 140 mg/dL * Correction Factor: 20 mg/dL/unit * Nutritional / Prandial insulin per carb ratio of 1 unit per 6 grams CHO consumed
--- NOTE | 2021-12-22 12:46 | Pharmacy Report ---
Pharmacy PK ABX Note - Date of Service December 22, 2021 - Assessment and Plan Assessment 12/22: * Pt had an MRI yesterday, confirming B/L foot osteomyelitis, right foot more significant than left foot. * Vancomycin level obtained today indicating sub-optimal dosing, despite dose increase yesterday. * Pertinent micro data: L foot wound cx -- Staph sp x2 (sensitivities pending) R foot wound cx -- Group B strep (sensitivities pending) * Ortho has been consulted and are recommending outpt f/u with podiatry. Pt will likely require amputation(s). 12/20 * 66 year old F receiving vancomycin/cefepime/flagyl for empiric treatment of b/l foot infections. Patient does have type II DM. Blood cultures are pending. Leukocytosis has resolved. MRIs to be done to r/o osteo. Plan Vancomycin * Loading dose: 2000 mg IV x 1 * Maintenance dose: Increase to vancomycin 1750mg IV every 12 hours * Regimen is predicted to achieve target AUC/TONEY of 400-600 mg/L.hr * No further levels have been ordered at this time. Will re-consider the need for additional levels in 1-2 days if patient is still admitted and receiving vancomycin. Pharmacy will continue to follow and will adjust dose/frequency as necessary. Thank you. Pharmacy has transitioned to AUC monitoring for vancomycin. AUC/TONEY is the preferred PK/PD target and is associated with decreased risk of nephrotoxicity compared to traditional trough targets.
--- NOTE | 2021-12-22 12:59 | Communication Note ---
Date of Service: December 22, 2021 Consult received. Chart briefly reviewed. Non-urgent. Patient with ongoing grief/multiple losses in past year including anniversary of husbands in Nov and now his birthday. Is interested in scientology counseling via telehealth and liaison to look at options. PHQ-9 #11 with 0 on #9. No panic or behavioral issues on floor. Consult at request of daughter given worsening around medical dx and likely amputation. Daughter spoke with liaison re: her own mental health. Review of surescripts shows past med trials by PCP Nessa 05/02 with lorazepam. Yolanda Brand. At this point, her symptoms seems appropriate to situation and less likely to response to antidepressant medication, given on adequate dose of 3rd SSRI if would want to switch agents could cross taper to SNRI such as Cymbalta but I often defer to outpatient given risk of side effects and multiple factors with health while hospitalized. SSRI can readily be held without taper if surgery deems bleeding risk.
--- NOTE | 2021-12-22 13:39 | Hospitalist Progress Note ---
Date of Service December 22, 2021 Assessment & Plan (1) Diabetic foot infection: (2) Foot ulcer: Plan: Right and left foot osteomyelitis-POA Infected Bilateral diabetic foot ulcers H/O Noncompliance as per daughter Rule out Osteomyelitis --R foot X ray:Osteopenia and degenerative changes above with no acute bony abnormality identified. A plantar ulceration is suggested in the forefoot on the lateral view. --L foot X ray:Plantar ulcer is noted in the forefoot. No radiographic evidence of osteomyelitis. If clinical concern remains, MRI is a more sensitive modality. --MRI foot:Osteomyelitis and cellulitis are seen in the right greater than left feet. No drainable fluid collections are seen. In the right foot, there is involvement of the second and third metatarsals, second and third proximal phalanges, and second digit middle phalanx. Degenerative changes are seen in the bilateral feet. --Blood Culture no growth to date --Wound Culture MRSA, staph species, group B beta strep -- Empirically on Vanco, cefepime, Flagyl for now Appreciate Orthopedics Input Continue wound care ID consulted Needs follow-up with podiatry for possible amputation (Dr. Lipscomb) Orthotic boots to offload as per Ortho (3) DM II (diabetes mellitus, type II), controlled: Plan: -Uncontrolled -On glipizide, metformin and Trulicity at home Non complaint with medications HbA1c 10.1 --Usually blood glucose is in the 300s-400s as per daughter -Julian BOX while hospitalized -special educator consulted (4) Nausea & vomiting: Plan: --CT ABD:No acute infectious or inflammatory findings are identified in the abdomen or pelvis. Mild hepatosplenomegaly. Hiatal hernia. --Gall Bladder USD:No acute sonographic abnormality is seen in the right upper quadrant. No gallstones are identified. The liver is enlarged and mildly steatotic. -- Currently no issues Monitor Right lower lobe pulmonary nodule--chronic Patient aware of Pulm nodule H/O Tobacco use --CT showed: Pathologically indeterminant 11 mm right lower lobe pulmonary nodule. A follow-up chest CT in 6 months time is recommended for reassessment and full evaluation --Advised to follow up as outpatient Meningioma Previously followed with neurology --MRI Brain: No acute intracranial findings. 1.5 cm extra-axial enhancing lesion overlying the anterior medial left frontal lobe. This is suggestive of a meningioma. Comparison with prior imaging studies, if available, is recommended. In the absence of prior studies, a follow-up MRI of the brain in 6 months is recommended. 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 (9) HTN (hypertension): Plan: Continue diltiazem Resume Chlorthalidone as able (10) DVT prophylaxis: Plan: Heparin SQ CODE STATUS: Full code Disposition PT/OT prior to discharge Family Contact: Nathalie Brionna Contact Number:[phone] Admission and Anticipated Discharge Date Admission Date: December 19, 2021 Subjective Patient is seen and examined at bedside Feels depressed secondary to need for possible amputation for osteomyelitis of foot Discussed with patient's daughter over the phone Denies any significant pain Also discussed with orthopedics Denies any chest pain, dyspnea, dizziness Review of Systems Review of Systems: All systems reviewed & are unremarkable except as noted in Subjective Physical Exam Physical Exam: Physical Exam: Vitals signs as noted above General Appearance:Obese, Moderately built and nourished, no apparent distress Head: normocephalic, Atraumatic Eyes: normal inspection, EOMI Neck: supple, Trachea midline Respiratory/Chest: Normal breath sounds, CTA, No accessory muscle use Cardiovascular: S1, S2, No murmur Abdomen/GI:Soft, Non tender, Bowel sounds present Extremities/Musculoskeletal:normal inspection, B/L Foot Ulcers, Trace pedal edema Neurologic/Psych:AAOX3, grossly no focal neurological deficits Skin: normal color, warm Results & Data Results & Data ([facility]) Vital Signs (Past 12 Hours) Vital Signs Temp Pulse Pulse Pulse Pulse Resp BP 12/22/21 11:00 36.6 C 65 20 113/74 12/22/21 09:00 12/22/21 07:57 36.4 C L 58 L 18 106/73 12/22/21 07:24 56 L 12/22/21 05:00 60 12/22/21 03:07 36.5 C 58 L 18 113/68 12/22/21 02:00 56 L Pulse Ox Pulse Ox Pulse Ox O2 Del Method O2 Del Method O2 Del Method O2 Flow Rate 12/22/21 11:00 96 2 12/22/21 09:00 Room Air 2 12/22/21 07:57 97 2 12/22/21 07:24 12/22/21 05:00 99 Nasal Cannula 12/22/21 03:07 97 Nasal Cannula 2 12/22/21 02:00 95 85 L Nasal Cannula Room Air O2 Flow Rate O2 Flow Rate 12/22/21 11:00 12/22/21 09:00 12/22/21 07:57 12/22/21 07:24 12/22/21 05:00 2 12/22/21 03:07 12/22/21 02:00 2
[2021-12-22] MEDS: VANCOMYCIN HCL 1,750 MG in SODIUM CHLORIDE 0.9% 500 ML IV SCH (14:21)
[2021-12-22] MEDS ORDERED: LANTUS PER UNIT CHARGE SQ SCH (17:00)
[2021-12-22] MEDS: metroNIDAZOLE 500 MG TAB PO SCH (17:09)
[2021-12-22] MEDS: ACETAMINOPHEN 500 MG TAB PO PRN (17:19)
[2021-12-22] MEDS: POTASSIUM CHLORIDE CRTAB 20 MEQ TABCR PO SCH (21:59)
[2021-12-22] MEDS: ATORVASTATIN 20 MG TAB PO SCH (22:01)
[2021-12-22] MEDS: NYSTATIN/TRIAMCIN CR 15 GM TUBE EXT SCH (22:02)
[2021-12-23] MEDS: metroNIDAZOLE 500 MG TAB PO SCH ×3 (01:04→17:17)
[2021-12-23] MEDS: VANCOMYCIN HCL 1,750 MG in SODIUM CHLORIDE 0.9% 500 ML IV SCH ×2 (01:05→12:35)
[2021-12-23] MEDS: CEFEPIME 2,000 MG in SYRINGE 0 ML IV SCH ×2 (03:36→15:38)
[2021-12-23] MEDS: LEVOTHYROXINE SODIUM 100 MCG TABLET PO SCH (06:11)
[2021-12-23] MEDS: HEPARIN SOD 5,000 UNIT/0.5 ML VIAL SQ SCH ×3 (06:11→22:25)
[2021-12-23 06:34] LABS: Hematocrit (blood only) 32.1 % (34.1-44.9); Hemoglobin 10.6 g/dl (12.0-16.0); Mean Corpuscular Hemoglobin 25.5 pg (25.0-34.0); Mean Corpuscular Volume 77.2 fL (80.0-100.0); Mean Platelet Volume 11.9 fL (9.4-12.3); Platelet Count 272 K/uL (130-400); RDW Standard Deviation 41.9 fL (36.4-46.3); Red Blood Count 4.16 M/uL (3.93-5.22); White Blood Count 8.54 K/ul (4.8-10.8)
[2021-12-23 06:35] LABS: BUN Creatinine Ratio 15.6 (10-20); Calcium 8.8 mg/dl (8.5-10.1); Creatinine Clr Calc Pharmacy 113.2 ml/min; Est GFR (African American) 108.5 ml/min; Est GFR (Non-African American) 93.6 ml/min; Magnesium 1.6 mg/dl (1.7-2.4)
[2021-12-23] MEDS ORDERED: LANTUS PER UNIT CHARGE SQ SCH (09:00)
[2021-12-23] MEDS: INSULIN ASPART PER UNIT SC SCH ×4 (09:00→22:15)
[2021-12-23] MEDS: ACETAMINOPHEN 500 MG TAB PO PRN ×2 (09:01→18:14)
[2021-12-23] MEDS: FLUoxetine HCL 20 MG CAP PO SCH (09:02)
[2021-12-23] MEDS: dilTIAZem ER 180 MG CAPCR PO SCH (09:02)
[2021-12-23] MEDS: ASPIRIN 81 MG ECTAB PO SCH (09:02)
[2021-12-23] MEDS: DOCUSATE SODIUM/SENNA 50/8.6MG TAB PO SCH (09:02)
[2021-12-23] MEDS: NYSTATIN/TRIAMCIN CR 15 GM TUBE EXT SCH ×2 (09:03→22:15)
[2021-12-23] MEDS: POTASSIUM CHLORIDE CRTAB 20 MEQ TABCR PO SCH ×2 (09:03→22:20)
[2021-12-23] MEDS: PANTOprazole 40 MG TAB PO SCH (09:03)
[2021-12-23] MEDS: CHOLECALCIFEROL 1,000 UNITS 25 MCG TAB PO SCH (09:03)
--- NOTE | 2021-12-23 11:31 | Hospitalist Progress Note ---
Date of Service December 23, 2021 Assessment & Plan (1) Diabetic foot infection: (2) Foot ulcer: Plan: Right and left foot osteomyelitis-POA Infected Bilateral diabetic foot ulcers H/O Noncompliance as per daughter --R foot X ray:Osteopenia and degenerative changes above with no acute bony abnormality identified. A plantar ulceration is suggested in the forefoot on the lateral view. --L foot X ray:Plantar ulcer is noted in the forefoot. No radiographic evidence of osteomyelitis. If clinical concern remains, MRI is a more sensitive modality. --MRI foot:Osteomyelitis and cellulitis are seen in the right greater than left feet. No drainable fluid collections are seen. In the right foot, there is involvement of the second and third metatarsals, second and third proximal phalanges, and second digit middle phalanx. Degenerative changes are seen in the bilateral feet. --Blood Culture no growth to date --Wound Culture MRSA, staph species, group B beta strep -- Empirically on Vanco, cefepime, Flagyl for now Plan: ID recommends continuation of current antibiotics with cefepime, Vanco and Flagyl until definitive management is done for osteomyelitis. Will need arrangement of home antibiotics and follow-up with podiatry for possible amputation Needs follow-up with podiatry for possible amputation (Dr. Lipscomb) Orthotic boots to offload as per Ortho (3) DM II (diabetes mellitus, type II), controlled: Plan: -Uncontrolled -On glipizide, metformin and Trulicity at home Non complaint with medications HbA1c 10.1 --Usually blood glucose is in the 300s-400s as per daughter -Julian BOX while hospitalized -clinical trial educator consulted (4) Nausea & vomiting: Plan: --CT ABD:No acute infectious or inflammatory findings are identified in the abdomen or pelvis. Mild hepatosplenomegaly. Hiatal hernia. --Gall Bladder USD:No acute sonographic abnormality is seen in the right upper quadrant. No gallstones are identified. The liver is enlarged and mildly steatotic. -- Currently no issues Monitor Right lower lobe pulmonary nodule--chronic Patient aware of Pulm nodule H/O Tobacco use --CT showed: Pathologically indeterminant 11 mm right lower lobe pulmonary nodule. A follow-up chest CT in 6 months time is recommended for reassessment and full evaluation --Advised to follow up as outpatient Meningioma Previously followed with neurology --MRI Brain: No acute intracranial findings. 1.5 cm extra-axial enhancing lesion overlying the anterior medial left frontal lobe. This is suggestive of a meningioma. Comparison with prior imaging studies, if available, is recommended. In the absence of prior studies, a follow-up MRI of the brain in 6 months is recommended. 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 Patient might need IV antibiotics. Will need to decide home versus rehab for IV antibiotics. Family Contact: Nathalie Brionna Contact Number:[phone] Admission and Anticipated Discharge Date Admission Date: December 19, 2021 Subjective Patient seen and examined at bedside. She is completely sitting up on the bed; not in any distress. No complaint of fever, chills, chest pain, shortness of breath or abdominal pain. Review of Systems Review of Systems: All systems reviewed & are unremarkable except as noted in Subjective Physical Exam Physical Exam: Physical Exam: Vitals signs as noted above General Appearance:Obese, Moderately built and nourished, no apparent distress Head: normocephalic, Atraumatic Eyes: normal inspection, EOMI Neck: supple, Trachea midline Respiratory/Chest: Normal breath sounds, CTA, No accessory muscle use Cardiovascular: S1, S2, No murmur Abdomen/GI:Soft, Non tender, Bowel sounds present Extremities/Musculoskeletal: Has puncture wounds on the plantar aspect of her bilateral forefoot; pus present. Neurologic/Psych:AAOX3, grossly no focal neurological deficits Skin: normal color, warm Results & Data Results & Data ([facility]) Vital Signs (Past 12 Hours) Vital Signs Temp Pulse Pulse Resp BP BP Pulse Ox 12/23/21 11:26 36.6 C 70 20 112/74 97 12/23/21 08:30 12/23/21 07:46 71 12/23/21 07:31 36.9 C 69 20 123/76 95 12/23/21 03:00 36.9 C 70 20 123/70 92 12/23/21 02:35 66 O2 Del Method O2 Flow Rate 12/23/21 11:26 Room Air 12/23/21 08:30 Nasal Cannula 2 12/23/21 07:46 12/23/21 07:31 Room Air 12/23/21 03:00 Room Air 12/23/21 02:35 Laboratory Results Laboratory Results WBC 8.54 K/ul (4.8-10.8) 12/23/21 05:58 RBC 4.16 M/uL (3.93-5.22) 12/23/21 05:58 Hgb 10.6 g/dl (12.0-16.0) L 12/23/21 05:58 Hct 32.1 % (34.1-44.9) L 12/23/21 05:58 MCV 77.2 fL (80.0-100.0) L 12/23/21 05:58 MCH 25.5 pg (25.0-34.0) 12/23/21 05:58 MCHC 33.0 g/dL (32.0-36.0) 12/23/21 05:58 RDW Std Deviation 41.9 fL (36.4-46.3) 12/23/21 05:58 RDW Coeff of Roni 15.0 % (11.5-14.5) H 12/23/21 05:58 Plt Count 272 K/uL (130-400) 12/23/21 05:58 MPV 11.9 fL (9.4-12.3) 12/23/21 05:58 Immature Gran % (Auto) 0.7 % 12/19/21 12:45 Neut % (Auto) 84.7 % 12/19/21 12:45 Lymph % (Auto) 8.0 % 12/19/21 12:45 Ritchie % (Auto) 6.3 % 12/19/21 12:45 Eos % (Auto) 0.1 % 12/19/21 12:45 Baso % (Auto) 0.2 % 12/19/21 12:45 Neut # (Auto) 12.48 K/uL (1.4-6.5) H 12/19/21 12:45 Lymph # (Auto) 1.18 K/uL (1.2-3.4) L 12/19/21 12:45 Ritchie # (Auto) 0.93 K/uL (0.24-0.82) H 12/19/21 12:45 Eos # (Auto) 0.01 K/uL (0-0.50) 12/19/21 12:45 Baso # (Auto) 0.03 K/uL (0-0.2) 12/19/21 12:45 Immature Gran # (Auto) 0.11 K/uL (0.00-0.02) H 12/19/21 12:45 ESR 127 mm/hr (0-30) H 12/19/21 12:45 PT 12.6 Seconds (9.0-12.0) H 12/19/21 12:45 INR 1.2 (0.9-1.1) H 12/19/21 12:45 APTT 33.6 Seconds (21.0-31.0) H 12/19/21 12:45 PTT Ratio 1.2 12/19/21 12:45 Sodium 135 mmol/L (136-145) L 12/23/21 05:58 Potassium 4.0 mmol/L (3.5-5.1) 12/23/21 05:58 Chloride 103 mmol/L (98-107) 12/23/21 05:58 Carbon Dioxide 26 mmol/L (21-32) 12/23/21 05:58 Anion Gap 6 (3-11) 12/23/21 05:58 BUN 10 mg/dl (6-23) 12/23/21 05:58 Creatinine 0.64 mg/dl (0.6-1.2) 12/23/21 05:58 Est Cr Clr Drug Dosing 113.2 ml/min 12/23/21 05:58 Est GFR ( Amer) 108.5 ml/min 12/23/21 05:58 Est GFR (Non-Af Amer) 93.6 ml/min 12/23/21 05:58 BUN/Creatinine Ratio 15.6 (10-20) 12/23/21 05:58 Glucose 221 mg/dl (70-99(Fasting)) H 12/23/21 05:58 POC Glucose 220 mg/dl (70-99) H 12/23/21 11:49 Estimat Average Glucose 243 mg/dl 12/20/21 06:27 Hemoglobin A1c 10.1 % (4.5-5.6) H 12/20/21 06:27 Calcium 8.8 mg/dl (8.5-10.1) 12/23/21 05:58 Magnesium 1.6 mg/dl (1.7-2.4) L 12/23/21 05:58 Total Bilirubin 0.8 mg/dl (0.2-1.0) 12/19/21 12:45 AST 11 U/L (13-39) L 12/19/21 12:45 ALT 13 U/L (7-52) 12/19/21 12:45 Alkaline Phosphatase 106 U/L (34-104) H 12/19/21 12:45 Troponin I High Sens 12.2 pg/ml (0-14) 12/19/21 12:45 C-Reactive Protein 24.75 mg/dl (0-0.5) H 12/19/21 12:45 Total Protein 8.3 gm/dl (6.0-8.3) 12/19/21 12:45 Albumin 3.8 gm/dl (3.4-5.0) 12/19/21 12:45 Globulin 4.5 gm/dl (2.5-4.0) H 12/19/21 12:45 Albumin/Globulin Ratio 0.8 (0.9-2) L 12/19/21 12:45 Triglycerides 129 mg/dl (0-150) 12/20/21 06:27 Cholesterol 150 mg/dl (0-200) 12/20/21 06:27 LDL Cholesterol, Calc 102 mg/dl 12/20/21 06:27 VLDL Cholesterol, Calc 26 mg/dl (0-30) 12/20/21 06:27 HDL Cholesterol 22 mg/dl 12/20/21 06:27 Cholesterol/HDL Ratio 6.8 (0-5) H 12/20/21 06:27 Procalcitonin 0.78 ng/ml (0-0.5) H 12/19/21 12:45 TSH 0.341 uIu/ml (0.300-4.500) 12/20/21 06:27 Urine Color Dark Yellow 12/19/21 16:26 Urine Appearance Clear (Clear) 12/19/21 16:26 Urine pH 5.0 (4.5-7.5) 12/19/21 16:26 Ur Specific Ostrander 1.017 (1.000-1.030) 12/19/21 16:26 Urine Protein Trace (Negative) H 12/19/21 16:26 Urine Glucose (UA) Negative (Negative) 12/19/21 16: Urine Ketones Trace (Negative) H 12/19/21 16:26 Urine Blood Negative (Negative) 12/19/21 16:26 Urine Nitrite Negative (Negative) 12/19/21 16: Urine Bilirubin 1+ (Negative) H 12/19/21 16:26 Urine Urobilinogen Negative (Negative) 12/19/21 16:26 Ur Leukocyte Esterase Negative (Negative) 12/19/21 16:26 Urine WBC (Auto) 1-5 /hpf (0-5) 12/19/21 16: Urine RBC (Auto) 0-4 /hpf (0-4) 12/19/21 16:26 U Hyaline Cast (Auto) 10-30 /lpf (0-5) H 12/19/21 16:26 U Epithel Cells (Auto) >30 /lpf (0-5) H 12/19/21 16:26 Urine Bacteria (Auto) Negative (Negative) 12/19/21 16:26 Nasal Screen MRSA (PCR) Negative (Negative) 12/20/21 09:33 Random Vancomycin 11.6 mcg/ml (10-20) 12/22/21 10:29 SARS-CoV-2, RNA, NAAT NEGATIVE (NEGATIVE) 12/19/21 17:34 Impressions Chest X-Ray 12/19/21 12:33 XR chest 1V not portable CLINICAL HISTORY: Sepsis TECHNIQUE: Single frontal radiograph of the chest was obtained. Comparison: None available at the time of this dictation. FINDINGS: No lines and tubes are seen. The cardiomediastinal silhouette is normal. The lungs are clear. No evidence of pleural effusion or pneumothorax. IMPRESSION: No acute chest disease. ACT 112: Negative or not required by law. Electronically signed by: Juarez Doherty M.D. 12/19/2021 1:47 PM Abdomen/Pelvis CT 12/19/21 14:47 CT SCAN OF THE ABDOMEN AND PELVIS WITHOUT IV CONTRAST CLINICAL HISTORY: Upper abdominal pain. COMPARISON STUDY: No priors. TECHNIQUE: CT scan of the abdomen and pelvis is performed from the lung bases to the proximal femora. Images are reviewed in the axial, sagittal, and coronal planes. IV contrast was not administered for this examination. Note that the examination is suboptimal without oral and IV contrast. A dose lowering technique was utilized adhering to the principles of ALARA. CT DOSE: 1113.85 mGy.cm FINDINGS: Lung bases: The heart is normal in size and without pericardial effusion. The coronary arteries are densely calcified. There is a small to moderate hiatal hernia. There is an 11 mm lobulated pulmonary nodule at the right lung base seen on image #53. The lung bases are otherwise clear noting bibasilar scarring/atelectasis. Liver: The unenhanced liver is enlarged, measuring 19.5 cm in length. The liver is otherwise normal in contour and attenuation. There is no intrahepatic biliary ductal dilatation. Gallbladder: Unremarkable. Spleen: The spleen is mildly enlarged measuring 13.9 cm in length. Pancreas: The unenhanced pancreas is grossly unremarkable. Adrenal glands: Unremarkable. Kidneys: The unenhanced kidneys are normal in size and without hydronephrosis. There are no renal calculi identified. A 3.1 cm cyst is noted in the left lower pole. Abdominal vasculature: The abdominal aorta is normal in course and caliber noting moderate to advanced atherosclerotic calcification. Bowel: There is no bowel obstruction. Mild fecal retention is seen throughout the colon. The appendix is well-visualized and normal. Peritoneum: There is no intraperitoneal free air or abdominal ascites. Lymphadenopathy: Prominent right inguinal lymph nodes measure up to 1.5 cm. These are likely reactive. Prominent right iliac chain nodes measure up to 10 mm in short axis. Pelvic viscera: The bladder is normal as visualized. The uterus is surgically absent. No adnexal lesion is seen. Skeletal structures: The skeletal structures are osteopenic. There is mild lumbosacral spondylosis and scoliosis. No lytic or blastic lesions are seen. IMPRESSION: 1. No acute infectious or inflammatory findings are identified in the abdomen or pelvis. 2. Mild hepatosplenomegaly. 3. There is a pathologically indeterminant 11 mm right lower lobe pulmonary nodule. A follow-up chest CT in 6 months time is recommended for reassessment and full evaluation of pneumothorax. 4. Hiatal hernia. 5. Additional findings as above. ACT 112: Positive. There are findings on this exam that require communication between the performing entity and the patient following Patient Test Result Information Act ([place] Act 112) guidelines. Electronically signed by: Kan Croft M.D. 12/19/2021 3:52 PM Foot X-Ray 12/19/21 14:47 XR foot LT min 3V routine CLINICAL HISTORY: plantar diabetic ulcer, ? osteo TECHNIQUE: 3 views of the left foot were obtained. Comparison: None available at the time of this dictation. FINDINGS: No evidence of bony erosion is seen. Extensive degenerative changes are seen. Soft tissue ulceration is seen in the plantar forefoot. IMPRESSION: Plantar ulcer is noted in the forefoot. No radiographic evidence of osteomyelitis. If clinical concern remains, MRI is a more sensitive modality. ACT 112: Negative or not required by law. Electronically signed by: Juarez Doherty M.D. 12/19/2021 3:53 PM Gallbladder Ultrasound 12/19/21 18:48 ULTRASOUND RIGHT UPPER QUADRANT ABDOMEN CLINICAL HISTORY: Right upper quadrant abdominal pain. Nausea. COMPARISON STUDY: Abdominal CT performed the same day 12/19/2021. TECHNIQUE: Real-time, grayscale, and color flow sonography of the right upper quadrant of the abdomen was performed. Images are reviewed in the transverse and longitudinal planes. FINDINGS: Liver: The liver is mildly enlarged. Echotexture is heterogeneous increased suggesting steatosis. There is no intrahepatic biliary ductal dilatation. The main portal vein is patent. Gallbladder: The gallbladder is normal in appearance. No gallstones are identified. There is no gallbladder wall thickening or pericholecystic fluid. A sonographic Coombs's sign is reportedly absent. The common bile duct measures up to 0.2 cm in diameter. Pancreas: Visualized portions of the pancreatic head and body are normal in appearance. Right kidney: Survey images of the right kidney demonstrate normal size and echotexture. There is no hydronephrosis. Ascites: None. IMPRESSION: 1 No acute sonographic abnormality is seen in the right upper quadrant. No gallstones are identified. 2. The liver is enlarged and mildly steatotic. ACT 112: Negative or not required by law. Electronically signed by: Kan Croft M.D. 12/19/2021 8:22 PM Foot MRI 12/21/21 06:13 MR foot RT wo/w con, MR foot LT wo/w con CLINICAL HISTORY: Eval for osteomyelitis TECHNIQUE: Multiplanar multisequence MR images of the bilateral foot were obtained without and with contrast. Comparison: Comparison is made to right foot radiograph 12/19/2021 FINDINGS: Exam is limited by patient motion. Right foot: Bone marrow edema is seen in the entire second metatarsal, as well as the mid to distal third metatarsal, second and third proximal phalanx, and second digit middle phalanx. There is diffuse soft tissue edema in the plantar surface of the foot and probably the second digit with involvement of the first and third digit as well. A soft tissue defect in the plantar foot is noted. No drainable fluid collection is seen. Left foot: Bone marrow edema is seen in the proximal phalanx of the second digit. Degenerative changes are seen with some edema in the first digit interphalangeal joint. Soft tissue swelling and plantar ulcer are seen. No drainable fluid collection. IMPRESSION: 1. Osteomyelitis and cellulitis are seen in the right greater than left feet. No drainable fluid collections are seen. In the right foot, there is involvement of the second and third metatarsals, second and third proximal phalanges, and second digit middle phalanx. 2. Degenerative changes are seen in the bilateral feet. ACT 112: Negative or not required by law. Electronically signed by: Juarez Doherty M.D. 12/21/2021 2:45 PM Brain MRI 12/21/21 12:53 MRI OF THE BRAIN WITHOUT AND WITH IV CONTRAST CLINICAL HISTORY: Meningioma. COMPARISON STUDY: None available at time of interpretation. TECHNIQUE: Utilizing a 1.5 Nichelle magnet and dedicated coil, multiplanar, multiecho imaging of the brain was performed pre and postcontrast administration. IV administration of Gadavist contrast was uneventful. Thin cut T1 post contrast imaging was performed. FINDINGS: There are no foci of restricted diffusion to suggest acute infarct. No acute intracranial hemorrhage, midline shift or mass effect is present. Ventricular system is unremarkable. Basal cisterns are patent. There are no extra-axial collections. Flow-voids for the major intracranial vessels are present. Note is made of an enhancing 1.4 x 1.2 x 1.5 cm extra-axial lesion overlying the anterior medial left frontal lobe. There is mild associated dural thickening. No additional intracranial masses are present. White matter T2 hyperintense foci favor small vessel disease. No suspicious calvarial marrow replacement is present. Orbits are unremarkable. There is no evidence for sinusitis. IMPRESSION: 1. No acute intracranial findings. 2. 1.5 cm extra-axial enhancing lesion overlying the anterior medial left frontal lobe. This is suggestive of a meningioma. Comparison with prior imaging studies, if available, is recommended. In the absence of prior studies, a follow-up MRI of the brain in 6 months is recommended. ACT 112: Negative or not required by law. Electronically signed by: Trever Sanchez M.D. 12/21/2021 2:44 PM
--- NOTE | 2021-12-23 14:27 | Pharmacy Report ---
Pharmacy Glycemic Short Note 2 - Date of Service December 23, 2021 - Glycemic Short BSG Results (Last 24 hours): 12/22/21 12/22/21 12/23/21 16:32 20:09 05:58 Glucose 221 H POC Glucose 122 H 209 H 12/23/21 12/23/21 07:44 11:49 Glucose POC Glucose 218 H 220 H OUTPATIENT ANTIDIABETIC REGIMEN: * Metformin 1gm PO BID * Glipizide 10mg PO BID * Trulicity 1.5mg SQ weekly * HbA1c: 10.1% (12/20/21) ASSESSMENT: 12/23/21: * Jessenia received 47 units of SQ insulin yesterday * 13 units Lantus + 34 units Novolog * BSGs: 182, 279, 122, 209 mg/dL * Fasting BSG of 218 mg/dL is above goal. Current regimen (based on previous 24h usage) is ~28% basal/72% bolus- will continue to titrate Lantus dose and attempt to move closer to 50% basal/50% bolus split. * Post prandial BSGs are fluctuating. Will tighten carb coverage. 12/23/11: * Ms Staton is a 66yo diabetic F admitted with b/l foot cellulitis/osteomyelitis. * She has some DM med compliance issues (see CDE note for more details as well as discharge recommendations). * Pt has been hyperglycemic during admission. Pharmacy consulted this afternoon to aid with glycemic mgmt. * Lantus increased beginning this evening for fasting BSG above goal. * Novolog parameters adjusted to provide additional carb coverage for better control throughout the day. * Pt is receiving vancomycin, metronidazole, and cefepime. * Will target strict glycemic control in the setting of infection. PLAN FOR INPATIENT GLYCEMIC CONTROL: * Hold outpatient oral diabetes medications * Basal insulin * Lantus 15 units SQ x 1, then 8-12 units SQ BID - 8 units for BSG < 140, 10 units for 140-180, 12 units for BSG > 180 * Bolus insulin * NovoLog per scale ACHS or Q6hrs while NPO * Goal Range: Low 110 mg/dL - High 140 mg/dL * Correction Factor: 20 mg/dL/unit * Nutritional / Prandial insulin per carb ratio of 1 unit per 5 grams CHO consumed
[2021-12-23] MEDS: ATORVASTATIN 20 MG TAB PO SCH (22:15)
[2021-12-23] MEDS: LANTUS PER UNIT CHARGE SQ SCH (22:20)
[2021-12-24] MEDS: metroNIDAZOLE 500 MG TAB PO SCH ×4 (00:10→23:18)
[2021-12-24] MEDS: VANCOMYCIN HCL 1,750 MG in SODIUM CHLORIDE 0.9% 500 ML IV SCH ×3 (00:50→23:18)
[2021-12-24] MEDS: CEFEPIME 2,000 MG in SYRINGE 0 ML IV SCH ×2 (02:17→14:34)
[2021-12-24 05:59] LABS: Basophils # (auto) 0.02 K/uL (0-0.2); Basophils % (auto) 0.2 %; Eosinophils # (auto) 0.11 K/uL (0-0.50); Eosinophils % (auto) 1.2 %; Hemoglobin 10.4 g/dl (12.0-16.0); Immature Granulocytes # (auto) 0.14 K/uL (0.00-0.02); Immature Granulocytes % (auto) 1.6 %; Lymphocytes # (auto) 2.03 K/uL (1.2-3.4); Lymphocytes % (auto) 22.5 %; Mean Corpuscular Hemoglobin 25.2 pg (25.0-34.0); Mean Corpuscular Hgb Conc 32.5 g/dL (32.0-36.0); Mean Corpuscular Volume 77.5 fL (80.0-100.0); Mean Platelet Volume 12.3 fL (9.4-12.3); Monocytes # (auto) 0.52 K/uL (0.24-0.82); Monocytes % (auto) 5.8 %; Neutrophils # (auto) 6.19 K/uL (1.4-6.5); Neutrophils % (auto) 68.7 %; Platelet Count 279 K/uL (130-400); RDW Standard Deviation 41.9 fL (36.4-46.3); Red Blood Count 4.13 M/uL (3.93-5.22); White Blood Count 9.01 K/ul (4.8-10.8)
[2021-12-24 06:10] LABS: BUN Creatinine Ratio 18.8 (10-20); Creatinine Clr Calc Pharmacy 113.2 ml/min; Est GFR (African American) 108.5 ml/min; Est GFR (Non-African American) 93.6 ml/min; Potassium 4.1 mmol/L (3.5-5.1)
[2021-12-24] MEDS: LEVOTHYROXINE SODIUM 175 MCG TABLET PO SCH (06:18)
[2021-12-24] MEDS: HEPARIN SOD 5,000 UNIT/0.5 ML VIAL SQ SCH ×3 (06:19→21:31)
[2021-12-24] MEDS: LANTUS PER UNIT CHARGE SQ SCH ×2 (08:37→21:33)
[2021-12-24] MEDS: POTASSIUM CHLORIDE CRTAB 20 MEQ TABCR PO SCH ×2 (08:38→21:31)
[2021-12-24] MEDS: INSULIN ASPART PER UNIT SC SCH ×4 (08:38→21:32)
[2021-12-24] MEDS: dilTIAZem ER 180 MG CAPCR PO SCH (08:39)
[2021-12-24] MEDS: CHOLECALCIFEROL 1,000 UNITS 25 MCG TAB PO SCH (08:39)
[2021-12-24] MEDS: DOCUSATE SODIUM/SENNA 50/8.6MG TAB PO SCH (08:39)
[2021-12-24] MEDS: FLUoxetine HCL 20 MG CAP PO SCH (08:39)
[2021-12-24] MEDS: ASPIRIN 81 MG ECTAB PO SCH (08:39)
[2021-12-24] MEDS: NYSTATIN/TRIAMCIN CR 15 GM TUBE EXT SCH ×2 (08:40→21:32)
[2021-12-24] MEDS: PANTOprazole 40 MG TAB PO SCH (08:40)
--- NOTE | 2021-12-24 11:05 | Hospitalist Progress Note ---
Date of Service December 24, 2021 Assessment & Plan (1) Diabetic foot infection: (2) Foot ulcer: Plan: Right and left foot osteomyelitis-POA Infected Bilateral diabetic foot ulcers H/O Noncompliance as per daughter --R foot X ray:Osteopenia and degenerative changes above with no acute bony abnormality identified. A plantar ulceration is suggested in the forefoot on the lateral view. --L foot X ray:Plantar ulcer is noted in the forefoot. No radiographic evidence of osteomyelitis. If clinical concern remains, MRI is a more sensitive modality. --MRI foot:Osteomyelitis and cellulitis are seen in the right greater than left feet. No drainable fluid collections are seen. In the right foot, there is involvement of the second and third metatarsals, second and third proximal phalanges, and second digit middle phalanx. Degenerative changes are seen in the bilateral feet. --Blood Culture no growth to date --Wound Culture MRSA, staph species, group B beta strep -- Empirically on Vanco, cefepime, Flagyl for now Plan: ID recommends continuation of current antibiotics with cefepime, Vanco and Flagyl until definitive management is done for osteomyelitis. Patient prefers going to the rehab for IV antibiotics and wound care. Will need to be arranged; case management on board. Will need final antibiotic recommendation from ID before proceeding. Needs follow-up with podiatry for possible amputation (Dr. Lipscomb) Orthotic boots to offload as per Ortho (3) DM II (diabetes mellitus, type II), controlled: Plan: -Uncontrolled -On glipizide, metformin and Trulicity at home Non complaint with medications HbA1c 10.1 --Usually blood glucose is in the 300s-400s as per daughter -Julian BOX while hospitalized -tobacco educator consulted (4) Nausea & vomiting: Plan: --CT ABD:No acute infectious or inflammatory findings are identified in the abdomen or pelvis. Mild hepatosplenomegaly. Hiatal hernia. --Gall Bladder USD:No acute sonographic abnormality is seen in the right upper quadrant. No gallstones are identified. The liver is enlarged and mildly steatotic. -- Currently no issues Monitor Right lower lobe pulmonary nodule--chronic Patient aware of Pulm nodule H/O Tobacco use --CT showed: Pathologically indeterminant 11 mm right lower lobe pulmonary nodule. A follow-up chest CT in 6 months time is recommended for reassessment and full evaluation --Advised to follow up as outpatient Meningioma Previously followed with neurology --MRI Brain: No acute intracranial findings. 1.5 cm extra-axial enhancing lesion overlying the anterior medial left frontal lobe. This is suggestive of a meningioma. Comparison with prior imaging studies, if available, is recommended. In the absence of prior studies, a follow-up MRI of the brain in 6 months is recommended. 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 Will need to get final ID recommendation; might need rehab. Family Contact: Nathalie Staton Contact Number:[phone] Admission and Anticipated Discharge Date Admission Date: December 19, 2021 Subjective Patient seen and examined at bedside. She is lying on the bed comfortably; not in any distress. She is afebrile. Denies chills. Review of Systems Review of Systems: All systems reviewed & are unremarkable except as noted in Subjective Physical Exam Physical Exam: Physical Exam: Vitals signs as noted above General Appearance:Obese, Moderately built and nourished, no apparent distress Head: normocephalic, Atraumatic Eyes: normal inspection, EOMI Neck: supple, Trachea midline Respiratory/Chest: Normal breath sounds, CTA, No accessory muscle use Cardiovascular: S1, S2, No murmur Abdomen/GI:Soft, Non tender, Bowel sounds present Extremities/Musculoskeletal: Has puncture wounds on the plantar aspect of her bilateral forefoot; pus present. Neurologic/Psych:AAOX3, grossly no focal neurological deficits Skin: normal color, warm Results & Data Results & Data ([facility]) Vital Signs (Past 12 Hours) Vital Signs Temp Pulse Pulse Resp BP BP Pulse Ox 12/24/21 10:54 36.9 C 80 18 112/71 94 12/24/21 07:45 12/24/21 07:32 37.1 C 70 20 113/67 93 12/24/21 07:00 68 12/24/21 03:19 36.8 C 62 20 117/68 94 12/23/21 23:20 65 O2 Del Method 12/24/21 10:54 Room Air 12/24/21 07:45 Room Air 12/24/21 07:32 Room Air 12/24/21 07:00 12/24/21 03:19 Room Air 12/23/21 23:20 Laboratory Results Laboratory Results WBC 9.01 K/ul (4.8-10.8) 12/24/21 05:27 RBC 4.13 M/uL (3.93-5.22) 12/24/21 05:27 Hgb 10.4 g/dl (12.0-16.0) L 12/24/21 05:27 Hct 32.0 % (34.1-44.9) L 12/24/21 05:27 MCV 77.5 fL (80.0-100.0) L 12/24/21 05:27 MCH 25.2 pg (25.0-34.0) 12/24/21 05:27 MCHC 32.5 g/dL (32.0-36.0) 12/24/21 05:27 RDW Std Deviation 41.9 fL (36.4-46.3) 12/24/21 05:27 RDW Coeff of Roni 15.0 % (11.5-14.5) H 12/24/21 05:27 Plt Count 279 K/uL (130-400) 12/24/21 05:27 MPV 12.3 fL (9.4-12.3) 12/24/21 05:27 Immature Gran % (Auto) 1.6 % 12/24/21 05:27 Neut % (Auto) 68.7 % 12/24/21 05:27 Lymph % (Auto) 22.5 % 12/24/21 05:27 Navarro % (Auto) 5.8 % 12/24/21 05:27 Eos % (Auto) 1.2 % 12/24/21 05:27 Baso % (Auto) 0.2 % 12/24/21 05:27 Neut # (Auto) 6.19 K/uL (1.4-6.5) 12/24/21 05:27 Lymph # (Auto) 2.03 K/uL (1.2-3.4) 12/24/21 05:27 Navarro # (Auto) 0.52 K/uL (0.24-0.82) 12/24/21 05:27 Eos # (Auto) 0.11 K/uL (0-0.50) 12/24/21 05:27 Baso # (Auto) 0.02 K/uL (0-0.2) 12/24/21 05:27 Immature Gran # (Auto) 0.14 K/uL (0.00-0.02) H 12/24/21 05:27 ESR 127 mm/hr (0-30) H 12/19/21 12:45 PT 12.6 Seconds (9.0-12.0) H 12/19/21 12:45 INR 1.2 (0.9-1.1) H 12/19/21 12:45 APTT 33.6 Seconds (21.0-31.0) H 12/19/21 12:45 PTT Ratio 1.2 12/19/21 12:45 Sodium 134 mmol/L (136-145) L 12/24/21 05:27 Potassium 4.1 mmol/L (3.5-5.1) 12/24/21 05:27 Chloride 103 mmol/L (98-107) 12/24/21 05:27 Carbon Dioxide 23 mmol/L (21-32) 12/24/21 05:27 Anion Gap 8 (3-11) 12/24/21 05:27 BUN 12 mg/dl (6-23) 12/24/21 05:27 Creatinine 0.64 mg/dl (0.6-1.2) 12/24/21 05:27 Est Cr Clr Drug Dosing 113.2 ml/min 12/24/21 05:27 Est GFR ( Amer) 108.5 ml/min 12/24/21 05:27 Est GFR (Non-Af Amer) 93.6 ml/min 12/24/21 05:27 BUN/Creatinine Ratio 18.8 (10-20) 12/24/21 05:27 Glucose 206 mg/dl (70-99(Fasting)) H 12/24/21 05:27 POC Glucose 216 mg/dl (70-99) H 12/24/21 07:31 Estimat Average Glucose 243 mg/dl 12/20/21 06:27 Hemoglobin A1c 10.1 % (4.5-5.6) H 12/20/21 06:27 Calcium 9.0 mg/dl (8.5-10.1) 12/24/21 05:27 Magnesium 1.6 mg/dl (1.7-2.4) L 12/23/21 05:58 Total Bilirubin 0.8 mg/dl (0.2-1.0) 12/19/21 12:45 AST 11 U/L (13-39) L 12/19/21 12:45 ALT 13 U/L (7-52) 12/19/21 12:45 Alkaline Phosphatase 106 U/L (34-104) H 12/19/21 12:45 Troponin I High Sens 12.2 pg/ml (0-14) 12/19/21 12:45 C-Reactive Protein 24.75 mg/dl (0-0.5) H 12/19/21 12:45 Total Protein 8.3 gm/dl (6.0-8.3) 12/19/21 12:45 Albumin 3.8 gm/dl (3.4-5.0) 12/19/21 12:45 Globulin 4.5 gm/dl (2.5-4.0) H 12/19/21 12:45 Albumin/Globulin Ratio 0.8 (0.9-2) L 12/19/21 12:45 Triglycerides 129 mg/dl (0-150) 12/20/21 06:27 Cholesterol 150 mg/dl (0-200) 12/20/21 06:27 LDL Cholesterol, Calc 102 mg/dl 12/20/21 06:27 VLDL Cholesterol, Calc 26 mg/dl (0-30) 12/20/21 06:27 HDL Cholesterol 22 mg/dl 12/20/21 06:27 Cholesterol/HDL Ratio 6.8 (0-5) H 12/20/21 06:27 Procalcitonin 0.78 ng/ml (0-0.5) H 12/19/21 12:45 TSH 0.341 uIu/ml (0.300-4.500) 12/20/21 06:27 Urine Color Dark Yellow 12/19/21 16:26 Urine Appearance Clear (Clear) 12/19/21 16:26 Urine pH 5.0 (4.5-7.5) 12/19/21 16:26 Ur Specific [place] 1.017 (1.000-1.030) 12/19/21 16:26 Urine Protein Trace (Negative) H 12/19/21 16:26 Urine Glucose (UA) Negative (Negative) 12/19/21 16:26 Urine Ketones Trace (Negative) H 12/19/21 16:26 Urine Blood Negative (Negative) 12/19/21 16:26 Urine Nitrite Negative (Negative) 12/19/21 16: Urine Bilirubin 1+ (Negative) H 12/19/21 16:26 Urine Urobilinogen Negative (Negative) 12/19/21 16:26 Ur Leukocyte Esterase Negative (Negative) 12/19/21 16:26 Urine WBC (Auto) 1-5 /hpf (0-5) 12/19/21 16:26 Urine RBC (Auto) 0-4 /hpf (0-4) 12/19/21 16:26 U Hyaline Cast (Auto) 10-30 /lpf (0-5) H 12/19/21 16:26 U Epithel Cells (Auto) >30 /lpf (0-5) H 12/19/21 16:26 Urine Bacteria (Auto) Negative (Negative) 12/19/21 16:26 Nasal Screen MRSA (PCR) Negative (Negative) 12/20/21 09:33 Random Vancomycin 30.9 mcg/ml (10-20) H* 12/24/21 05:27 SARS-CoV-2, RNA, NAAT NEGATIVE (NEGATIVE) 12/19/21 17:34 Impressions Chest X-Ray 12/19/21 12:33 XR chest 1V not portable CLINICAL HISTORY: Sepsis TECHNIQUE: Single frontal radiograph of the chest was obtained. Comparison: None available at the time of this dictation. FINDINGS: No lines and tubes are seen. The cardiomediastinal silhouette is normal. The lungs are clear. No evidence of pleural effusion or pneumothorax. IMPRESSION: No acute chest disease. ACT 112: Negative or not required by law. Electronically signed by: Juarez Doherty M.D. 12/19/2021 1:47 PM Abdomen/Pelvis CT 12/19/21 14:47 CT SCAN OF THE ABDOMEN AND PELVIS WITHOUT IV CONTRAST CLINICAL HISTORY: Upper abdominal pain. COMPARISON STUDY: No priors. TECHNIQUE: CT scan of the abdomen and pelvis is performed from the lung bases to the proximal femora. Images are reviewed in the axial, sagittal, and coronal planes. IV contrast was not administered for this examination. Note that the examination is suboptimal without oral and IV contrast. A dose lowering technique was utilized adhering to the principles of ALARA. CT DOSE: 1113.85 mGy.cm FINDINGS: Lung bases: The heart is normal in size and without pericardial effusion. The coronary arteries are densely calcified. There is a small to moderate hiatal hernia. There is an 11 mm lobulated pulmonary nodule at the right lung base seen on image #53. The lung bases are otherwise clear noting bibasilar scarring/atelectasis. Liver: The unenhanced liver is enlarged, measuring 19.5 cm in length. The liver is otherwise normal in contour and attenuation. There is no intrahepatic biliary ductal dilatation. Gallbladder: Unremarkable. Spleen: The spleen is mildly enlarged measuring 13.9 cm in length. Pancreas: The unenhanced pancreas is grossly unremarkable. Adrenal glands: Unremarkable. Kidneys: The unenhanced kidneys are normal in size and without hydronephrosis. There are no renal calculi identified. A 3.1 cm cyst is noted in the left lower pole. Abdominal vasculature: The abdominal aorta is normal in course and caliber noting moderate to advanced atherosclerotic calcification. Bowel: There is no bowel obstruction. Mild fecal retention is seen throughout the colon. The appendix is well-visualized and normal. Peritoneum: There is no intraperitoneal free air or abdominal ascites. Lymphadenopathy: Prominent right inguinal lymph nodes measure up to 1.5 cm. These are likely reactive. Prominent right iliac chain nodes measure up to 10 mm in short axis. Pelvic viscera: The bladder is normal as visualized. The uterus is surgically absent. No adnexal lesion is seen. Skeletal structures: The skeletal structures are osteopenic. There is mild lumbosacral spondylosis and scoliosis. No lytic or blastic lesions are seen. IMPRESSION: 1. No acute infectious or inflammatory findings are identified in the abdomen or pelvis. 2. Mild hepatosplenomegaly. 3. There is a pathologically indeterminant 11 mm right lower lobe pulmonary nodule. A follow-up chest CT in 6 months time is recommended for reassessment and full evaluation of pneumothorax. 4. Hiatal hernia. 5. Additional findings as above. ACT 112: Positive. There are findings on this exam that require communication between the performing entity and the patient following Patient Test Result Information Act ([place] Act 112) guidelines. Electronically signed by: Kan Croft M.D. 12/19/2021 3:52 PM Foot X-Ray 12/19/21 14:47 XR foot LT min 3V routine CLINICAL HISTORY: plantar diabetic ulcer, ? osteo TECHNIQUE: 3 views of the left foot were obtained. Comparison: None available at the time of this dictation. FINDINGS: No evidence of bony erosion is seen. Extensive degenerative changes are seen. Soft tissue ulceration is seen in the plantar forefoot. IMPRESSION: Plantar ulcer is noted in the forefoot. No radiographic evidence of osteomyelitis. If clinical concern remains, MRI is a more sensitive modality. ACT 112: Negative or not required by law. Electronically signed by: Juarez Doherty M.D. 12/19/2021 3:53 PM Gallbladder Ultrasound 12/19/21 18:48 ULTRASOUND RIGHT UPPER QUADRANT ABDOMEN CLINICAL HISTORY: Right upper quadrant abdominal pain. Nausea. COMPARISON STUDY: Abdominal CT performed the same day 12/19/2021. TECHNIQUE: Real-time, grayscale, and color flow sonography of the right upper quadrant of the abdomen was performed. Images are reviewed in the transverse and longitudinal planes. FINDINGS: Liver: The liver is mildly enlarged. Echotexture is heterogeneous increased suggesting steatosis. There is no intrahepatic biliary ductal dilatation. The main portal vein is patent. Gallbladder: The gallbladder is normal in appearance. No gallstones are identified. There is no gallbladder wall thickening or pericholecystic fluid. A sonographic Coombs's sign is reportedly absent. The common bile duct measures up to 0.2 cm in diameter. Pancreas: Visualized portions of the pancreatic head and body are normal in appearance. Right kidney: Survey images of the right kidney demonstrate normal size and echotexture. There is no hydronephrosis. Ascites: None. IMPRESSION: 1 No acute sonographic abnormality is seen in the right upper quadrant. No gallstones are identified. 2. The liver is enlarged and mildly steatotic. ACT 112: Negative or not required by law. Electronically signed by: Kan Croft M.D. 12/19/2021 8:22 PM Foot MRI 12/21/21 06:13 MR foot RT wo/w con, MR foot LT wo/w con CLINICAL HISTORY: Eval for osteomyelitis TECHNIQUE: Multiplanar multisequence MR images of the bilateral foot were obtained without and with contrast. Comparison: Comparison is made to right foot radiograph 12/19/2021 FINDINGS: Exam is limited by patient motion. Right foot: Bone marrow edema is seen in the entire second metatarsal, as well as the mid to distal third metatarsal, second and third proximal phalanx, and second digit middle phalanx. There is diffuse soft tissue edema in the plantar surface of the foot and probably the second digit with involvement of the first and third digit as well. A soft tissue defect in the plantar foot is noted. No drainable fluid collection is seen. Left foot: Bone marrow edema is seen in the proximal phalanx of the second digit. Degenerative changes are seen with some edema in the first digit interphalangeal joint. Soft tissue swelling and plantar ulcer are seen. No drainable fluid collection. IMPRESSION: 1. Osteomyelitis and cellulitis are seen in the right greater than left feet. No drainable fluid collections are seen. In the right foot, there is involvement of the second and third metatarsals, second and third proximal phalanges, and second digit middle phalanx. 2. Degenerative changes are seen in the bilateral feet. ACT 112: Negative or not required by law. Electronically signed by: Juarez Doherty M.D. 12/21/2021 2:45 PM Brain MRI 12/21/21 12:53 MRI OF THE BRAIN WITHOUT AND WITH IV CONTRAST CLINICAL HISTORY: Meningioma. COMPARISON STUDY: None available at time of interpretation. TECHNIQUE: Utilizing a 1.5 Nichelle magnet and dedicated coil, multiplanar, multiecho imaging of the brain was performed pre and postcontrast administration. IV administration of Gadavist contrast was uneventful. Thin cut T1 post contrast imaging was performed. FINDINGS: There are no foci of restricted diffusion to suggest acute infarct. No acute intracranial hemorrhage, midline shift or mass effect is present. Vent ricular system is unremarkable. Basal cisterns are patent. There are no extra- axial collections. Flow-voids for the major intracranial vessels are present. Note is made of an enhancing 1.4 x 1.2 x 1.5 cm extra-axial lesion overlying the anterior medial left frontal lobe. There is mild associated dural thickening. No additional intracranial masses are present. White matter T2 hyperintense foci favor small vessel disease. No suspicious calvarial marrow replacement is present. Orbits are unremarkable. There is no evidence for sinusitis. IMPRESSION: 1. No acute intracranial findings. 2. 1.5 cm extra-axial enhancing lesion overlying the anterior medial left frontal lobe. This is suggestive of a meningioma. Comparison with prior imaging studies, if available, is recommended. In the absence of prior studies, a follow-up MRI of the brain in 6 months is recommended. ACT 112: Negative or not required by law. Electronically signed by: Trever Sanchez M.D. 12/21/2021 2:44 PM
--- NOTE | 2021-12-24 11:09 | Pharmacy Report ---
Pharmacy PK ABX Note - Date of Service December 24, 2021 - Assessment and Plan Assessment 12/24: * L foot culture updated to few MRSA and rare MSSA. * Continues on cefepime/flagyl/vanco, ?de-escalate with culture data, antibiotics started prior to culture. ID was consulted (see hospitalist note) 12/22: * Pt had an MRI yesterday, confirming B/L foot osteomyelitis, right foot more significant than left foot. * Vancomycin level obtained today indicating sub-optimal dosing, despite dose increase yesterday. * Pertinent micro data: L foot wound cx -- Staph sp x2 (sensitivities pending) R foot wound cx -- Group B strep (sensitivities pending) * Ortho has been consulted and are recommending outpt f/u with podiatry. Pt will likely require amputation(s). 12/20 * 66 year old F receiving vancomycin/cefepime/flagyl for empiric treatment of b/l foot infections. Patient does have type II DM. Blood cultures are pending. Leukocytosis has resolved. MRIs to be done to r/o osteo. Plan 12/24 * Random level 30.9 this am, this is closer to peak level and does predict to be within target AUC/TONEY 400-600 mg/L.hr * Continue vancomycin 1750 mg every 12 hours * Renal function stable at this time. Consider additional level in 3-4 days or as clinically indicated. Vancomycin * Loading dose: 2000 mg IV x 1 * Maintenance dose: Increase to vancomycin 1750mg IV every 12 hours * Regimen is predicted to achieve target AUC/TONEY of 400-600 mg/L.hr * No further levels have been ordered at this time. Will re-consider the need for additional levels in 1-2 days if patient is still admitted and receiving vancomycin. Pharmacy will continue to follow and will adjust dose/frequency as necessary. Thank you. Pharmacy has transitioned to AUC monitoring for vancomycin. AUC/TONEY is the preferred PK/PD target and is associated with decreased risk of nephrotoxicity compared to traditional trough targets.
[2021-12-24] MEDS: ACETAMINOPHEN 500 MG TAB PO PRN (14:36)
[2021-12-24] MEDS: ATORVASTATIN 20 MG TAB PO SCH (21:31)
[2021-12-25] MEDS: CEFEPIME 2,000 MG in SYRINGE 0 ML IV SCH (02:05)
[2021-12-25] MEDS: HEPARIN SOD 5,000 UNIT/0.5 ML VIAL SQ SCH ×3 (05:24→20:47)
[2021-12-25] MEDS: LEVOTHYROXINE SODIUM 175 MCG TABLET PO SCH (05:24)
[2021-12-25 07:59] LABS: Basophils # (auto) 0.02 K/uL (0-0.2); Basophils % (auto) 0.2 %; Eosinophils # (auto) 0.11 K/uL (0-0.50); Eosinophils % (auto) 1.3 %; Hematocrit (blood only) 30.7 % (34.1-44.9); Hemoglobin 10.1 g/dl (12.0-16.0); Immature Granulocytes # (auto) 0.16 K/uL (0.00-0.02); Immature Granulocytes % (auto) 1.9 %; Lymphocytes # (auto) 2.12 K/uL (1.2-3.4); Lymphocytes % (auto) 25.1 %; Mean Corpuscular Hemoglobin 25.2 pg (25.0-34.0); Mean Corpuscular Hgb Conc 32.9 g/dL (32.0-36.0); Mean Corpuscular Volume 76.6 fL (80.0-100.0); Mean Platelet Volume 12.6 fL (9.4-12.3); Monocytes # (auto) 0.56 K/uL (0.24-0.82); Monocytes % (auto) 6.6 %; Neutrophils # (auto) 5.49 K/uL (1.4-6.5); Neutrophils % (auto) 64.9 %; Platelet Count 277 K/uL (130-400); RDW Coefficient of Variation 15.3 % (11.5-14.5); RDW Standard Deviation 42.1 fL (36.4-46.3); Red Blood Count 4.01 M/uL (3.93-5.22); White Blood Count 8.46 K/ul (4.8-10.8)
[2021-12-25 08:31] LABS: BUN Creatinine Ratio 14.9 (10-20); Calcium 9.2 mg/dl (8.5-10.1); Creatinine Clr Calc Pharmacy 108.2 ml/min; Est GFR (African American) 106.9 ml/min; Est GFR (Non-African American) 92.2 ml/min; Potassium 4.3 mmol/L (3.5-5.1)
[2021-12-25] MEDS: LANTUS PER UNIT CHARGE SQ SCH ×2 (08:38→20:30)
[2021-12-25] MEDS: INSULIN ASPART PER UNIT SC SCH ×4 (08:38→20:30)
[2021-12-25] MEDS: POTASSIUM CHLORIDE CRTAB 20 MEQ TABCR PO SCH ×2 (08:40→20:44)
[2021-12-25] MEDS: FLUoxetine HCL 20 MG CAP PO SCH (08:42)
[2021-12-25] MEDS: dilTIAZem ER 180 MG CAPCR PO SCH (08:42)
[2021-12-25] MEDS: ASPIRIN 81 MG ECTAB PO SCH (08:42)
[2021-12-25] MEDS: PANTOprazole 40 MG TAB PO SCH (08:42)
[2021-12-25] MEDS: DOCUSATE SODIUM/SENNA 50/8.6MG TAB PO SCH (08:42)
[2021-12-25] MEDS: CHOLECALCIFEROL 1,000 UNITS 25 MCG TAB PO SCH (08:43)
[2021-12-25] MEDS: metroNIDAZOLE 500 MG TAB PO SCH (08:43)
[2021-12-25] MEDS: NYSTATIN/TRIAMCIN CR 15 GM TUBE EXT SCH ×2 (08:43→20:45)
[2021-12-25] MEDS: ACETAMINOPHEN 500 MG TAB PO PRN ×2 (08:54→20:57)
[2021-12-25] MEDS: dilTIAZem HCL 180 MG CAPCR PO SCH (09:27)
--- NOTE | 2021-12-25 11:16 | Hospitalist Progress Note ---
Date of Service December 25, 2021 Assessment & Plan (1) Diabetic foot infection: (2) Foot ulcer: Plan: Right and left foot osteomyelitis-POA Infected Bilateral diabetic foot ulcers Hx of Diabetic foot for last 2 years. --MRI foot:Osteomyelitis and cellulitis are seen in the right greater than left feet. No drainable fluid collections are seen. In the right foot, there is involvement of the second and third metatarsals, second and third proximal phalanges, and second digit middle phalanx. Degenerative changes are seen in the bilateral feet. --Blood Culture no growth to date --Wound Culture MRSA, staph species, group B beta strep -- Empirically on Vanco, cefepime, Flagyl for now Plan: -Discussed with infectious disease over the phone. Recommended that patient be placed on cefdinir to cover for group B strep and doxycycline to cover for MRSA based on the wound culture result. -However, duration of the antibiotic will depend on definitive care of for osteomyelitis by orthopedic. Will provide 4-week of oral antibiotic on discharge. She wanted to get opinion from podiatry inpatient; Dr. Phillip consulted. -Continue wound care. (3) DM II (diabetes mellitus, type II), controlled: Plan: -Uncontrolled -On glipizide, metformin and Trulicity at home Non complaint with medications HbA1c 10.1 --Usually blood glucose is in the 300s-400s as per daughter -Julian BOX while hospitalized -log stacker operator consulted (4) Nausea & vomiting: Plan: --CT ABD:No acute infectious or inflammatory findings are identified in the abdomen or pelvis. Mild hepatosplenomegaly. Hiatal hernia. --Gall Bladder USD:No acute sonographic abnormality is seen in the right upper quadrant. No gallstones are identified. The liver is enlarged and mildly steatotic. -- Currently no issues Monitor Right lower lobe pulmonary nodule--chronic Patient aware of Pulm nodule H/O Tobacco use --CT showed: Pathologically indeterminant 11 mm right lower lobe pulmonary nodule. A follow-up chest CT in 6 months time is recommended for reassessment and full evaluation --Advised to follow up as outpatient Meningioma Previously followed with neurology --MRI Brain: No acute intracranial findings. 1.5 cm extra-axial enhancing lesion overlying the anterior medial left frontal lobe. This is suggestive of a meningioma. Comparison with prior imaging studies, if available, is recommended. In the absence of prior studies, a follow-up MRI of the brain in 6 months is recommended. 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 (9) HTN (hypertension): Plan: on diltiazem and chlorthalidone. (10) DVT prophylaxis: Plan: Heparin SQ CODE STATUS: Full code Disposition PT/OT done; plan for evaluation by podiatric. Discharge plan will depend on further intervention. Family Contact: Nathalie Staton Contact Number:[phone] Admission and Anticipated Discharge Date Admission Date: December 19, 2021 Subjective Patient seen and examined at bedside. She is anxious regarding the plan. She s aid that she would prefer to talk with one of the podiatrists in the hospital and get his opinion regarding the findings and the MRI. Review of Systems Review of Systems: All systems reviewed & are unremarkable except as noted in Subjective Physical Exam Physical Exam: Physical Exam: Vitals signs as noted above General Appearance:Obese, Moderately built and nourished, no apparent distress Head: normocephalic, Atraumatic Eyes: normal inspection, EOMI Neck: supple, Trachea midline Respiratory/Chest: Normal breath sounds, CTA, No accessory muscle use Cardiovascular: S1, S2, No murmur Abdomen/GI:Soft, Non tender, Bowel sounds present Extremities/Musculoskeletal: Has puncture wounds on the plantar aspect of her bilateral forefoot; pus present. Surrounding erythema and swelling improved. Neurologic/Psych:AAOX3, grossly no focal neurological deficits Skin: normal color, warm Results & Data Results & Data ([facility]) Vital Signs (Past 12 Hours) Vital Signs Temp Pulse Pulse Resp BP Pulse Ox O2 Del Method 12/25/21 09:40 77 12/25/21 07:28 36.9 C 71 18 137/74 92 Room Air 12/25/21 03:15 37 C 73 18 158/84 H 90 Room Air Laboratory Results Laboratory Results WBC 8.46 K/ul (4.8-10.8) 12/25/21 07:26 RBC 4.01 M/uL (3.93-5.22) 12/25/21 07: Hgb 10.1 g/dl (12.0-16.0) L 12/25/21 07: Hct 30.7 % (34.1-44.9) L 12/25/21 07:26 MCV 76.6 fL (80.0-100.0) L 12/25/21 07:26 MCH 25.2 pg (25.0-34.0) 12/25/21 07: MCHC 32.9 g/dL (32.0-36.0) 12/25/21 07: RDW Std Deviation 42.1 fL (36.4-46.3) 12/25/21 07: RDW Coeff of Roni 15.3 % (11.5-14.5) H 12/25/21 07: Plt Count 277 K/uL (130-400) 12/25/21 07: MPV 12.6 fL (9.4-12.3) H 12/25/21 07:26 Immature Gran % (Auto) 1.9 % 12/25/21 07:26 Neut % (Auto) 64.9 % 12/25/21 07: Lymph % (Auto) 25.1 % 12/25/21 07:26 [place] % (Auto) 6.6 % 12/25/21 07:26 Eos % (Auto) 1.3 % 12/25/21 07: Baso % (Auto) 0.2 % 12/25/21 07: Neut # (Auto) 5.49 K/uL (1.4-6.5) 12/25/21 07: Lymph # (Auto) 2.12 K/uL (1.2-3.4) 12/25/21 07:26 [place] # (Auto) 0.56 K/uL (0.24-0.82) 12/25/21 07: Eos # (Auto) 0.11 K/uL (0-0.50) 12/25/21 07:26 Baso # (Auto) 0.02 K/uL (0-0.2) 12/25/21 07:26 Immature Gran # (Auto) 0.16 K/uL (0.00-0.02) H 12/25/21 07:26 ESR 127 mm/hr (0-30) H 12/19/21 12:45 PT 12.6 Seconds (9.0-12.0) H 12/19/21 12:45 INR 1.2 (0.9-1.1) H 12/19/21 12:45 APTT 33.6 Seconds (21.0-31.0) H 12/19/21 12:45 PTT Ratio 1.2 12/19/21 12:45 Sodium 135 mmol/L (136-145) L 12/25/21 07:26 Potassium 4.3 mmol/L (3.5-5.1) 12/25/21 07:26 Chloride 106 mmol/L (98-107) 12/25/21 07:26 Carbon Dioxide 24 mmol/L (21-32) 12/25/21 07:26 Anion Gap 5 (3-11) 12/25/21 07:26 BUN 10 mg/dl (6-23) 12/25/21 07:26 Creatinine 0.67 mg/dl (0.6-1.2) 12/25/21 07:26 Est Cr Clr Drug Dosing 108.2 ml/min 12/25/21 07:26 Est GFR ( Amer) 106.9 ml/min 12/25/21 07:26 Est GFR (Non-Af Amer) 92.2 ml/min 12/25/21 07:26 BUN/Creatinine Ratio 14.9 (10-20) 12/25/21 07:26 Glucose 170 mg/dl (70-99(Fasting)) H 12/25/21 07:26 POC Glucose 172 mg/dl (70-99) H 12/25/21 07:23 Estimat Average Glucose 243 mg/dl 12/20/21 06:27 Hemoglobin A1c 10.1 % (4.5-5.6) H 12/20/21 06:27 Calcium 9.2 mg/dl (8.5-10.1) 12/25/21 07:26 Magnesium 1.6 mg/dl (1.7-2.4) L 12/23/21 05:58 Total Bilirubin 0.8 mg/dl (0.2-1.0) 12/19/21 12:45 AST 11 U/L (13-39) L 12/19/21 12:45 ALT 13 U/L (7-52) 12/19/21 12:45 Alkaline Phosphatase 106 U/L (34-104) H 12/19/21 12:45 Troponin I High Sens 12.2 pg/ml (0-14) 12/19/21 12:45 C-Reactive Protein 24.75 mg/dl (0-0.5) H 12/19/21 12:45 Total Protein 8.3 gm/dl (6.0-8.3) 12/19/21 12:45 Albumin 3.8 gm/dl (3.4-5.0) 12/19/21 12:45 Globulin 4.5 gm/dl (2.5-4.0) H 12/19/21 12:45 Albumin/Globulin Ratio 0.8 (0.9-2) L 12/19/21 12:45 Triglycerides 129 mg/dl (0-150) 12/20/21 06:27 Cholesterol 150 mg/dl (0-200) 12/20/21 06:27 LDL Cholesterol, Calc 102 mg/dl 12/20/21 06:27 VLDL Cholesterol, Calc 26 mg/dl (0-30) 12/20/21 06:27 HDL Cholesterol 22 mg/dl 12/20/21 06:27 Cholesterol/HDL Ratio 6.8 (0-5) H 12/20/21 06:27 Procalcitonin 0.78 ng/ml (0-0.5) H 12/19/21 12:45 TSH 0.341 uIu/ml (0.300-4.500) 12/20/21 06:27 Urine Color Dark Yellow 12/19/21 16:26 Urine Appearance Clear (Clear) 12/19/21 16:26 Urine pH 5.0 (4.5-7.5) 12/19/21 16:26 Ur Specific [place] 1.017 (1.000-1.030) 12/19/21 16:26 Urine Protein Trace (Negative) H 12/19/21 16:26 Urine Glucose (UA) Negative (Negative) 12/19/21 16:26 Urine Ketones Trace (Negative) H 12/19/21 16:26 Urine Blood Negative (Negative) 12/19/21 16:26 Urine Nitrite Negative (Negative) 12/19/21 16:26 Urine Bilirubin 1+ (Negative) H 12/19/21 16:26 Urine Urobilinogen Negative (Negative) 12/19/21 16:26 Ur Leukocyte Esterase Negative (Negative) 12/19/21 16:26 Urine WBC (Auto) 1-5 /hpf (0-5) 12/19/21 16:26 Urine RBC (Auto) 0-4 /hpf (0-4) 12/19/21 16:26 U Hyaline Cast (Auto) 10-30 /lpf (0-5) H 12/19/21 16:26 U Epithel Cells (Auto) >30 /lpf (0-5) H 12/19/21 16:26 Urine Bacteria (Auto) Negative (Negative) 12/19/21 16:26 Nasal Screen MRSA (PCR) Negative (Negative) 12/20/21 09:33 Random Vancomycin 30.9 mcg/ml (10-20) H* 12/24/21 05:27 SARS-CoV-2, RNA, NAAT NEGATIVE (NEGATIVE) 12/19/21 17:34 Impressions Chest X-Ray 12/19/21 12:33 XR chest 1V not portable CLINICAL HISTORY: Sepsis TECHNIQUE: Single frontal radiograph of the chest was obtained. Comparison: None available at the time of this dictation. FINDINGS: No lines and tubes are seen. The cardiomediastinal silhouette is normal. The lungs are clear. No evidence of pleural effusion or pneumothorax. IMPRESSION: No acute chest disease. ACT 112: Negative or not required by law. Electronically signed by: Juarez Doherty M.D. 12/19/2021 1:47 PM Abdomen/Pelvis CT 12/19/21 14:47 CT SCAN OF THE ABDOMEN AND PELVIS WITHOUT IV CONTRAST CLINICAL HISTORY: Upper abdominal pain. COMPARISON STUDY: No priors. TECHNIQUE: CT scan of the abdomen and pelvis is performed from the lung bases to the proximal femora. Images are reviewed in the axial, sagittal, and coronal planes. IV contrast was not administered for this examination. Note that the examination is suboptimal without oral and IV contrast. A dose lowering technique was utilized adhering to the principles of ALARA. CT DOSE: 1113.85 mGy.cm FINDINGS: Lung bases: The heart is normal in size and without pericardial effusion. The coronary arteries are densely calcified. There is a small to moderate hiatal hernia. There is an 11 mm lobulated pulmonary nodule at the right lung base seen on image #53. The lung bases are otherwise clear noting bibasilar scarring/atelectasis. Liver: The unenhanced liver is enlarged, measuring 19.5 cm in length. The liver is otherwise normal in contour and attenuation. There is no intrahepatic biliary ductal dilatation. Gallbladder: Unremarkable. Spleen: The spleen is mildly enlarged measuring 13.9 cm in length. Pancreas: The unenhanced pancreas is grossly unremarkable. Adrenal glands: Unremarkable. Kidneys: The unenhanced kidneys are normal in size and without hydronephrosis. There are no renal calculi identified. A 3.1 cm cyst is noted in the left lower pole. Abdominal vasculature: The abdominal aorta is normal in course and caliber noting moderate to advanced atherosclerotic calcification. Bowel: There is no bowel obstruction. Mild fecal retention is seen throughout the colon. The appendix is well-visualized and normal. Peritoneum: There is no intraperitoneal free air or abdominal ascites. Lymphadenopathy: Prominent right inguinal lymph nodes measure up to 1.5 cm. These are likely reactive. Prominent right iliac chain nodes measure up to 10 mm in short axis. Pelvic viscera: The bladder is normal as visualized. The uterus is surgically absent. No adnexal lesion is seen. Skeletal structures: The skeletal structures are osteopenic. There is mild lumbosacral spondylosis and scoliosis. No lytic or blastic lesions are seen. IMPRESSION: 1. No acute infectious or inflammatory findings are identified in the abdomen or pelvis. 2. Mild hepatosplenomegaly. 3. There is a pathologically indeterminant 11 mm right lower lobe pulmonary nodule. A follow-up chest CT in 6 months time is recommended for reassessment and full evaluation of pneumothorax. 4. Hiatal hernia. 5. Additional findings as above. ACT 112: Positive. There are findings on this exam that require communication between the performing entity and the patient following Patient Test Result Information Act ([place] Act 112) guidelines. Electronically signed by: Kan Croft M.D. 12/19/2021 3:52 PM Foot X-Ray 12/19/21 14:47 XR foot LT min 3V routine CLINICAL HISTORY: plantar diabetic ulcer, ? osteo TECHNIQUE: 3 views of the left foot were obtained. Comparison: None available at the time of this dictation. FINDINGS: No evidence of bony erosion is seen. Extensive degenerative changes are seen. Soft tissue ulceration is seen in the plantar forefoot. IMPRESSION: Plantar ulcer is noted in the forefoot. No radiographic evidence of osteomyelitis. If clinical concern remains, MRI is a more sensitive modality. ACT 112: Negative or not required by law. Electronically signed by: Juarez Doherty M.D. 12/19/2021 3:53 PM Gallbladder Ultrasound 12/19/21 18:48 ULTRASOUND RIGHT UPPER QUADRANT ABDOMEN CLINICAL HISTORY: Right upper quadrant abdominal pain. Nausea. COMPARISON STUDY: Abdominal CT performed the same day 12/19/2021. TECHNIQUE: Real-time, grayscale, and color flow sonography of the right upper quadrant of the abdomen was performed. Images are reviewed in the transverse and longitudinal planes. FINDINGS: Liver: The liver is mildly enlarged. Echotexture is heterogeneous increased suggesting steatosis. There is no intrahepatic biliary ductal dilatation. The main portal vein is patent. Gallbladder: The gallbladder is normal in appearance. No gallstones are identified. There is no gallbladder wall thickening or pericholecystic fluid. A sonographic Coombs's sign is reportedly absent. The common bile duct measures up to 0.2 cm in diameter. Pancreas: Visualized portions of the pancreatic head and body are normal in appearance. Right kidney: Survey images of the right kidney demonstrate normal size and echotexture. There is no hydronephrosis. Ascites: None. IMPRESSION: 1 No acute sonographic abnormality is seen in the right upper quadrant. No gallstones are identified. 2. The liver is enlarged and mildly steatotic. ACT 112: Negative or not required by law. Electronically signed by: Kan Croft M.D. 12/19/2021 8:22 PM Foot MRI 12/21/21 06:13 MR foot RT wo/w con, MR foot LT wo/w con CLINICAL HISTORY: Eval for osteomyelitis TECHNIQUE: Multiplanar multisequence MR images of the bilateral foot were obtained without and with contrast. Comparison: Comparison is made to right foot radiograph 12/19/2021 FINDINGS: Exam is limited by patient motion. Right foot: Bone marrow edema is seen in the entire second metatarsal, as well as the mid to distal third metatarsal, second and third proximal phalanx, and second digit middle phalanx. There is diffuse soft tissue edema in the plantar surface of the foot and probably the second digit with involvement of the first and third digit as well. A soft tissue defect in the plantar foot is noted. No drainable fluid collection is seen. Left foot: Bone marrow edema is seen in the proximal phalanx of the second digit. Degenerative changes are seen with some edema in the first digit interphalangeal joint. Soft tissue swelling and plantar ulcer are seen. No drainable fluid collection. IMPRESSION: 1. Osteomyelitis and cellulitis are seen in the right greater than left feet. No drainable fluid collections are seen. In the right foot, there is involvement of the second and third metatarsals, second and third proximal phalanges, and second digit middle phalanx. 2. Degenerative changes are seen in the bilateral feet. ACT 112: Negative or not required by law. Electronically signed by: Juarez Doherty M.D. 12/21/2021 2:45 PM Brain MRI 12/21/21 12:53 MRI OF THE BRAIN WITHOUT AND WITH IV CONTRAST CLINICAL HISTORY: Meningioma. COMPARISON STUDY: None available at time of interpretation. TECHNIQUE: Utilizing a 1.5 Nichelle magnet and dedicated coil, multiplanar, multiecho imaging of the brain was performed pre and postcontrast administration. IV administration of Gadavist contrast was uneventful. Thin cut T1 post contrast imaging was performed. FINDINGS: There are no foci of restricted diffusion to suggest acute infarct. No acute intracranial hemorrhage, midline shift or mass effect is present. Ventricular system is unremarkable. Basal cisterns are patent. There are no extra-axial collections. Flow-voids for the major intracranial vessels are present. Note is made of an enhancing 1.4 x 1.2 x 1.5 cm extra-axial lesion overlying the anterior medial left frontal lobe. There is mild associated dural thickening. No additional intracranial masses are present. White matter T2 hyperintense foci favor small vessel disease. No suspicious calvarial marrow replacement is present. Orbits are unremarkable. There is no evidence for sinusitis. IMPRESSION: 1. No acute intracranial findings. 2. 1.5 cm extra-axial enhancing lesion overlying the anterior medial left frontal lobe. This is suggestive of a meningioma. Comparison with prior imaging studies, if available, is recommended. In the absence of prior studies, a follow-up MRI of the brain in 6 months is recommended. ACT 112: Negative or not required by law. Electronically signed by: Trever Sanchez M.D. 12/21/2021 2:44 PM
[2021-12-25] MEDS: CEFDINIR 300 MG CAP PO SCH ×2 (12:07→20:43)
[2021-12-25] MEDS: DOXYCYCLINE HYCLATE 100 MG CAP PO SCH ×2 (12:07→20:43)
--- NOTE | 2021-12-25 13:29 | Pharmacy Report ---
Pharmacy Glycemic Short Note 2 - Date of Service December 25, 2021 - Glycemic Short BSG Results (Last 24 hours): 12/24/21 12/24/21 12/25/21 16:26 20:44 07:23 Glucose POC Glucose 139 H 172 H 172 H 12/25/21 12/25/21 07:26 11:32 Glucose 170 H POC Glucose 145 H OUTPATIENT ANTIDIABETIC REGIMEN: * Metformin 1gm PO BID * Glipizide 10mg PO BID * Trulicity 1.5mg SQ weekly * HbA1c: 10.1% (12/20/21) ASSESSMENT: 12/25/21 * Patient's BSGs yesterday were [phone] mg/dL. Patient received 71 units of insulin (33 units of basal and 38 units of bolus). * Fasting today is 172 mg/dL which is trending down slightly. * Increase Lantus to 18 units BID which is about 10% increase since fasting still above goal. * Continue Novolog as BSGs corrected appropriately yesterday. 12/23/21: * Jessenia received 47 units of SQ insulin yesterday * 13 units Lantus + 34 units Novolog * BSGs: 182, 279, 122, 209 mg/dL * Fasting BSG of 218 mg/dL is above goal. Current regimen (based on previous 24h usage) is ~28% basal/72% bolus- will continue to titrate Lantus dose and attempt to move closer to 50% basal/50% bolus split. * Post prandial BSGs are fluctuating. Will tighten carb coverage. 12/23/11: * Ms Staton is a 66yo diabetic F admitted with b/l foot cellulitis/osteomyelitis. * She has some DM med compliance issues (see CDE note for more details as well as discharge recommendations). * Pt has been hyperglycemic during admission. Pharmacy consulted this afternoon to aid with glycemic mgmt. * Lantus increased beginning this evening for fasting BSG above goal. * Novolog parameters adjusted to provide additional carb coverage for better control throughout the day. * Pt is receiving vancomycin, metronidazole, and cefepime. * Will target strict glycemic control in the setting of infection. PLAN FOR INPATIENT GLYCEMIC CONTROL: * Hold outpatient oral diabetes medications * Basal insulin * Lantus 18 units SQ BID * Bolus insulin * NovoLog per scale ACHS or Q6hrs while NPO * Goal Range: Low 110 mg/dL - High 140 mg/dL * Correction Factor: 20 mg/dL/unit * Nutritional / Prandial insulin per carb ratio of 1 unit per 5 grams CHO consumed
--- NOTE | 2021-12-25 20:07 | Orthopedic Consultation ---
Date of Consultation December 25, 2021 Assessment & Plan (1) Diabetic foot ulcers: Patient seen, evaluated and treated. Reviewed previous documentation. Reviewed MRI images of right and left foot. Discussed images with Patient and daughter at this evenings visit. Discussed wounds probe to bone, Right DFU probes to 2nd met, Left DFU probes to third metatarsal. Discussed surgical excision of non viable bone and soft tissue Right and Left foot while Patient is in hospital followed by transfer to SNF. Patient and daughter agree with plan of care. Reviewed Right 2nd ray resection, Right 3rd metatarsal and left 3rd metatarsal resection. All other procedures as indicated. I reviewed procedure in detail as well as postoperative recovery. I discussed expectations and patient's current weightbearing status. All questions answered. I have discussed procedure in detail as well as postoperative recovery. All potential risks, benefits, complications, alternatives, rehab, potential for incomplete relief of symptoms, need for further surgery, DVT, PE, , persistent pain, swelling, scarring, weakness, neurovascular, wound complications and potential for amputations were discussed with patient. Unwanted outcomes such as, but not limited to were reviewed including under correction, overcorrection, return of deformity, infection. All questions were answered. Patient has decided to proceed with procedure as indicated. (2) Diabetic foot infection: (3) DM II (diabetes mellitus, type II), controlled: (4) Foot ulcer: History of Present Illness Attending Physician: Federico Bentley MD History of Present Illness Patient is a 66 year old female who is seen at bedside this evening for bilateral diabetic foot ulcers. Patient past medical history includes DM type II, Pito's, Hawley's esophagus, brain meningioma, diabetic neuropathy, and history of foot ulcers. Patient notes 3 year history of bilateral DFUs. She has seen [facility], wound Care, and orthopedics. She relates non compliance with use of diabetic shoes and CMOs, and was never placed in total contact casting. Patient presented to [facility] ED on 12/19 with complaint of bilateral foot ulcers that had foul smell, increased redness and swelling. Elevated WBC while in ED, (+) leukocytosis and Patient was placed on IV vancomycin, cefepime and Flagyl. She was admitted to floor. X-rays were taken followed by MRI. MRI on 12/20 shows concern for osteomyelitis right and left foot. Left foot cultures (+) MRSA, left foot shows Group B strep. Multiple providers consulted for review of Osteomyelitis, seen by ortho on 12/20, 12/21, and 12/22. , Patient concerned over recommendation of out Patient transmetatarsal amputation. Patient's daughter is present over phone during conversation. Daughter helps with history and care. Daughter had recommended psychiatric consult while Patient in house. Psychiatric consult completed on 12/22 and note her symptoms seems appropriate to situation. Allergies Allergy/AdvReac Type Severity Reaction Status Date / Time nickel Allergy Intermediate RASH, SKIN Verified 12/19/21 16:16 IRRITATION Sulfa (Sulfonamide Allergy Intermediate Rash Verified 12/19/21 16:16 Antibiotics) Penicillins Allergy Unknown HAPPENED Verified 12/19/21 16:16 AN --FAMILY HX. Home Medications Medication Instructions Recorded Confirmed Type aspirin 81 mg tablet,delayed 81 mg PO DAILY 12/19/21 12/19/21 History release atorvastatin 20 mg tablet 20 mg PO HS 12/19/21 12/19/21 History chlorthalidone 25 mg tablet 25 mg PO DAILY 12/19/21 12/19/21 History cholecalciferol (vitamin D3) 25 25 mcg PO DAILY 12/19/21 12/19/21 History mcg (1,000 unit) capsule (Vitamin D3) diltiazem HCl 360 mg capsule,24 360 mg PO DAILY 12/19/21 12/19/21 History hr,extended release (Tiadylt ER) esomeprazole magnesium 20 mg 20 mg PO DAILY 12/19/21 12/19/21 History capsule,delayed release (Nexium) fluoxetine 40 mg capsule 40 mg PO DAILY 12/19/21 12/19/21 History glipizide 10 mg tablet, extended 10 mg PO BID 12/19/21 12/19/21 History release 24 hr levothyroxine 100 mcg tablet 100 mcg PO WK 12/19/21 12/19/21 History levothyroxine 175 mcg tablet 175 mcg PO 6XWK 12/19/21 12/19/21 History metformin 1,000 mg tablet 1,000 mg PO BID 12/19/21 12/19/21 History ondansetron 4 mg disintegrating 4 mg translingual Q8H PRN 12/19/21 12/19/21 History tablet NAUSEA/VOMITING potassium chloride 10 mEq 10 meq PO DAILY 12/19/21 12/19/21 History capsule,extended release sodium hypochlorite 0.125 % 1 applic topical DAILY 12/19/21 12/19/21 History solution (Dakin's Solution) Patient History Medical History (Updated 12/20/21 @ 12:29 by Yuliya Benedict PA-C) Breast cyst DM II (diabetes mellitus, type II), controlled Pito's disease HTN (hypertension) Lung nodule Meningioma Tobacco abuse, in remission Surgical History H/O removal of cyst Hx of foot surgery Hx of hand surgery Hx of total hysterectomy Family History Aunt Cancer Ovarian age 31 Aunt Cancer Throat, bladder Uncle Cancer Prostate Mother Heart disease Hypertension Social History Smoking Status: Never smoker Age Started Using Tobacco: 17; packs per day: 1; Smoking End Date: 2007; Hx Alcohol Use: No Hx Substance Use: No Preferred Language: Kyrgyz Communication Ability: Effective Panel Edge Sealer Required: No Beliefs That Will Affect Care: None marital status: / Current Living Situation: Alone Feels Safe at Home: Yes Safety Concerns: Feels Safe At This Time Assistive Devices: None Review of Systems Review of Systems: All systems reviewed & are unremarkable except as noted in HPI & below Physical Exam Constitutional: well developed, well nourished and + ill appearing Eyes: PERRL, conjunctivae normal, anicteric sclerae ENMT: external ear and nose normal, oropharynx normal Respiratory: normal respiratory effort Cardiovascular: Pedal pulses palpable bilateral. Capillary refill within normal limits to all digits. Proximal to distal cooling wnl. Bilateral lower extremity edema. Right LE edema pitting, increased. Musculoskeletal: Limited dorsiflexion to bilateral ankles past 90. (+) equinus deformity bilateral. Skin: Right and left foot diabetic foot ulcers. Wounds both are malodorous with purulent drainage consistent with Staph infection. Right foot ulcer probes to second metatarsal. Left foot ulcer probes to third metatarsal. Abundent necrotic tissue noted. Neurologic: Decreased epicritic sensation Psychiatric: Orientation: alert and oriented x 3 Results & Data ([facility]) Vital Signs (Past 12 Hours) Vital Signs Temp Pulse Pulse Resp BP Pulse Ox O2 Del Method 12/25/21 19:00 37.1 C 69 20 124/79 94 Room Air 12/25/21 15:24 66 12/25/21 14:49 36.7 C 66 18 110/66 95 Room Air 12/25/21 11:13 36.5 C 83 18 146/81 H 98 Room Air 12/25/21 09:40 77 Diagnostic Findings MR foot RT wo/w con, MR foot LT wo/w con CLINICAL HISTORY: Eval for osteomyelitis TECHNIQUE: Multiplanar multisequence MR images of the bilateral foot were obtained without and with contrast. Comparison: Comparison is made to right foot radiograph 12/19/2021 FINDINGS: Exam is limited by patient motion. Right foot: Bone marrow edema is seen in the entire second metatarsal, as well as the mid to distal third metatarsal, second and third proximal phalanx, and second digit middle phalanx. There is diffuse soft tissue edema in the plantar surface of the foot and probably the second digit with involvement of the first and third digit as well. A soft tissue defect in the plantar foot is noted. No drainable fluid collection is seen. Left foot: Bone marrow edema is seen in the proximal phalanx of the second digit. Degenerative changes are seen with some edema in the first digit interphalangeal joint. Soft tissue swelling and plantar ulcer are seen. No drainable fluid collection. IMPRESSION: 1. Osteomyelitis and cellulitis are seen in the right greater than left feet. No drainable fluid collections are seen. In the right foot, there is involvement of the second and third metatarsals, second and third proximal phalanges, and second digit middle phalanx. 2. Degenerative changes are seen in the bilateral feet. ACT 112: Negative or not required by law. Electronically signed by: Juarez Doherty M.D. 12/21/2021 2:45 PM
[2021-12-25] MEDS: ATORVASTATIN 20 MG TAB PO SCH (20:44)
[2021-12-26] MEDS: LEVOTHYROXINE SODIUM 175 MCG TABLET PO SCH (06:09)
[2021-12-26] MEDS: HEPARIN SOD 5,000 UNIT/0.5 ML VIAL SQ SCH ×3 (06:09→21:12)
[2021-12-26 08:30] LABS: Basophils # (auto) 0.04 K/uL (0-0.2); Basophils % (auto) 0.4 %; Eosinophils # (auto) 0.13 K/uL (0-0.50); Eosinophils % (auto) 1.4 %; Hematocrit (blood only) 34.9 % (34.1-44.9); Hemoglobin 11.2 g/dl (12.0-16.0); Immature Granulocytes # (auto) 0.17 K/uL (0.00-0.02); Immature Granulocytes % (auto) 1.8 %; Lymphocytes # (auto) 1.99 K/uL (1.2-3.4); Lymphocytes % (auto) 21.4 %; Mean Corpuscular Hemoglobin 25.5 pg (25.0-34.0); Mean Corpuscular Hgb Conc 32.1 g/dL (32.0-36.0); Mean Corpuscular Volume 79.3 fL (80.0-100.0); Mean Platelet Volume 12.2 fL (9.4-12.3); Monocytes # (auto) 0.55 K/uL (0.24-0.82); Monocytes % (auto) 5.9 %; Neutrophils # (auto) 6.42 K/uL (1.4-6.5); Neutrophils % (auto) 69.1 %; Platelet Count 312 K/uL (130-400); RDW Coefficient of Variation 15.5 % (11.5-14.5); RDW Standard Deviation 43.4 fL (36.4-46.3)
[2021-12-26] MEDS: FLUoxetine HCL 20 MG CAP PO SCH (08:33)
[2021-12-26] MEDS: CEFDINIR 300 MG CAP PO SCH ×2 (08:33→21:32)
[2021-12-26] MEDS: DOCUSATE SODIUM/SENNA 50/8.6MG TAB PO SCH ×2 (08:34→09:32)
[2021-12-26] MEDS: PANTOprazole 40 MG TAB PO SCH (08:34)
[2021-12-26] MEDS: DOXYCYCLINE HYCLATE 100 MG CAP PO SCH ×2 (08:34→21:33)
[2021-12-26] MEDS: CHOLECALCIFEROL 1,000 UNITS 25 MCG TAB PO SCH (08:34)
[2021-12-26] MEDS: POTASSIUM CHLORIDE CRTAB 20 MEQ TABCR PO SCH ×2 (08:34→21:11)
[2021-12-26] MEDS: ASPIRIN 81 MG ECTAB PO SCH (08:35)
[2021-12-26] MEDS: dilTIAZem HCL 180 MG CAPCR PO SCH (08:35)
[2021-12-26] MEDS: NYSTATIN/TRIAMCIN CR 15 GM TUBE EXT SCH ×2 (08:36→23:03)
[2021-12-26 08:56] LABS: BUN Creatinine Ratio 12.3 (10-20); Calcium 9.7 mg/dl (8.5-10.1); Creatinine Clr Calc Pharmacy 99.4 ml/min; Est GFR (African American) 100.2 ml/min; Est GFR (Non-African American) 86.4 ml/min; Potassium 4.5 mmol/L (3.5-5.1)
[2021-12-26] MEDS ORDERED: LANTUS PER UNIT CHARGE SQ SCH (09:00)
[2021-12-26] MEDS: INSULIN ASPART PER UNIT SC SCH ×4 (09:12→23:04)
[2021-12-26] MEDS ORDERED: VANCOMYCIN LEVEL ONE (11:30)
--- NOTE | 2021-12-26 14:11 | Hospitalist Progress Note ---
Date of Service December 26, 2021 Assessment & Plan (1) Diabetic foot infection: Plan 66-year-old lady with PMH of T2DM, diabetic neuropathy, diabetic foot ulcers for which she follows with wound clinic for many months, Pito's, Hawley's esophagus, brain meningioma presented to the ED 12/19 as bilateral foot also had foul smell associated with increased redness and swelling. She is being managed for the following: Right and left foot osteomyelitis-POA Infected Bilateral diabetic foot ulcers Hx of Diabetic foot for last 2 years. --MRI foot:Osteomyelitis and cellulitis are seen in the right greater than left feet. No drainable fluid collections are seen. In the right foot, there is involvement of the second and third metatarsals, second and third proximal phalanges, and second digit middle phalanx. Degenerative changes are seen in the bilateral feet. --Blood Culture no growth. --Wound Culture MRSA, staph species, group B beta strep -- was empirically started on Vanco, cefepime, Flagyl for now Plan: -Prior attending discussed with infectious disease over the phone. Recommended that patient be placed on cefdinir to cover for group B strep and doxycycline to cover for MRSA based on the wound culture result. -However, duration of the antibiotic will depend on definitive care of for osteomyelitis by orthopedic. Will provide 4-week of oral antibiotic on disch arge. -Now that condenser tester is taking her to OR today, will await operative culture and biopsy and will get in touch with ID again once operative results back. -Continue wound care.Tallow Maker f/u on [place]. (3) DM II (diabetes mellitus, type II), controlled: Plan: -Uncontrolled -On glipizide, metformin and Trulicity at home Non complaint with medications HbA1c 10.1 --Usually blood glucose is in the 300s-400s as per daughter -ISS, Lantus while hospitalized -informatics educator consulted (4) Nausea & vomiting: Plan: --CT ABD:No acute infectious or inflammatory findings are identified in the abdomen or pelvis. Mild hepatosplenomegaly. Hiatal hernia. --Gall Bladder USD:No acute sonographic abnormality is seen in the right upper quadrant. No gallstones are identified. The liver is enlarged and mildly steatotic. -- Currently no issues Monitor Right lower lobe pulmonary nodule--chronic Patient aware of Pulm nodule H/O Tobacco use --CT showed: Pathologically indeterminant 11 mm right lower lobe pulmonary nodule. A follow-up chest CT in 6 months time is recommended for reassessment and full evaluation --Advised to follow up as outpatient and CT chest in 6 months. Meningioma Previously followed with neurology --MRI Brain: No acute intracranial findings. 1.5 cm extra-axial enhancing lesion overlying the anterior medial left frontal lobe. This is suggestive of a meningioma. Comparison with prior imaging studies, if available, is recommended. In the absence of prior studies, a follow-up MRI of the brain in 6 months is recommended. -- Advised to follow-up with neurosurgery as outpatient Hyponatremia: Mild, likely due to dehydration, stable. Monitor. Other electrolyte abnormalities: Monitor and replete as appropriate. Other chronic medical conditions: Pito's/HTN -->> continue with/resume home meds as and when appropriate. DVT prophylaxis: Heparin subcu CODE STATUS: Full code Dispo: PT/OT, to OR today. CM to assist with DC planning. Family Contact: Nathalie Staton Contact Number:[phone] Called patient's daughter over the phone, the network was not clear, could not understand her questions and concerns, since the patient is also coming to the hospital later in the day, will talk with patient's daughter with patient at bedside at that time. Admission and Anticipated Discharge Date Admission Date: December 19, 2021 Subjective Patient seen and examined at bedside as a follow-up of bilateral foot osteomyelitis and infected bilateral diabetic foot ulcers and uncontrolled DM 2. Patient was sitting up in bed, on room air, NAD, denies any new acute event overnight, was anxious regarding surgery later in the evening with condenser tester, and was very grateful of the staff and doctors that she has seen in the hospital. Patient is n.p.o. for surgery in the evening, insulin adjusted accordingly. Patient denies any pain or discomfort. Patient denies any headache/dizziness/fever/chills/chest pain/palpitations/other review of symptoms. Patient reports moving bowels okay. Physical Exam Physical Exam: GENERAL: Alert and oriented x3. NAD, on RA. Class I obese. HEENT: No pallor, no icterus. Pupils equal, round and reactive to light. Oral mucosa moist. NECK: No JVD, no neck masses. HEART: S1 and S2 heard. Regular rate and rhythm. No murmur, no gallop. RESPIRATORY SYSTEM: Normal AP diameter. No accessory muscle use. No wheezing, no crackles. ABDOMEN: Soft, bowel sounds present, nontender, no distention. CENTRAL NERVOUS SYSTEM: No facial droop. Speech is clear. Obeys simple co mmands. Moves extremities. EXTREMITIES: No edema, no erythema seen. Puncture wound on plantar aspect x b/l forefoot a/w some soakage of dressings. Results & Data Results & Data ([facility]) Vital Signs (Past 12 Hours) Vital Signs Temp Pulse Resp BP BP Pulse Ox O2 Del Method 12/26/21 10:53 36.7 C 73 20 136/84 95 Room Air 12/26/21 08:00 Room Air 12/26/21 07:22 36.6 C 72 20 118/73 93 Room Air 12/26/21 03:00 36.6 C 70 18 117/69 91 Room Air
--- NOTE | 2021-12-26 15:11 | Anesthesiology Consultation ---
Date of Service December 26, 2021 Assessment & Plan (1) Encounter for pre-operative examination: Chart Review Chart Review: Acceptable Risk for Surgery and Patient NOT seen in Pre Admission Testing Consults Requested none History Surgery Operation Date: 12/26/21 09:40 Proposed Procedures p Right 2nd Ray Amputation, Right 3rd Metatarsal and Left 2nd Metatarsal - Tim Phillip, DPM, MS Height/Weight Height: 5 ft 9 in Weight: 105.5 kg Allergies Allergy/AdvReac Type Severity Reaction Status Date / Time nickel Allergy Intermediate RASH, SKIN Verified 12/19/21 16:16 IRRITATION Sulfa (Sulfonamide Allergy Intermediate Rash Verified 12/19/21 16:16 Antibiotics) Penicillins Allergy Unknown HAPPENED Verified 12/19/21 16:16 AN INFANT--FAMILY HX. Medications Home Medications Medication Instructions Recorded Confirmed Last Taken aspirin 81 mg tablet,delayed 81 mg PO DAILY 12/19/21 12/19/21 12/18/21 release atorvastatin 20 mg tablet 20 mg PO HS 12/19/21 12/19/21 12/18/21 chlorthalidone 25 mg tablet 25 mg PO DAILY 12/19/21 12/19/21 12/18/21 cholecalciferol (vitamin D3) 25 25 mcg PO DAILY 12/19/21 12/19/21 12/18/21 mcg (1,000 unit) capsule (Vitamin D3) diltiazem HCl 360 mg capsule,24 360 mg PO DAILY 12/19/21 12/19/21 12/18/21 hr,extended release (Tiadylt ER) esomeprazole magnesium 20 mg 20 mg PO DAILY 12/19/21 12/19/21 12/18/21 capsule,delayed release (Nexium) fluoxetine 40 mg capsule 40 mg PO DAILY 12/19/21 12/19/21 12/18/21 glipizide 10 mg tablet, extended 10 mg PO BID 12/19/21 12/19/21 12/18/21 release 24 hr levothyroxine 100 mcg tablet 100 mcg PO WK 12/19/21 12/19/21 12/16/21 levothyroxine 175 mcg tablet 175 mcg PO 6XWK 12/19/21 12/19/21 12/18/21 metformin 1,000 mg tablet 1,000 mg PO BID 12/19/21 12/19/21 12/18/21 ondansetron 4 mg disintegrating 4 mg translingual Q8H PRN 12/19/21 12/19/21 12/19/21 09:10 tablet NAUSEA/VOMITING potassium chloride 10 mEq 10 meq PO DAILY 12/19/21 12/19/21 12/18/21 capsule,extended release sodium hypochlorite 0.125 % 1 applic topical DAILY 12/19/21 12/19/21 12/18/21 solution (Dakin's Solution) Active Medications Generic Name Dose Route Start Last Admin Trade Name Sushma PRN Reason Stop Dose Admin Acetaminophen 1,000 mg 12/21/21 19:15 12/25/21 20:57 Acetaminophen 500 Mg Tab PO 01/18/22 21:22 1,000 mg TID PRN Administration Moderate Pain Aspirin 81 mg 12/20/21 09:00 12/26/21 08:35 Aspirin 81 Mg Ectab PO 01/19/22 08:59 81 mg DAILY SHANTHI Administration Atorvastatin Calcium 20 mg 12/19/21 22:00 12/25/21 20:44 Atorvastatin 20 Mg Tab PO 01/18/22 21:59 20 mg HS SHANTHI Administration Cefdinir 300 mg 12/25/21 11:30 12/26/21 08:33 Cefdinir 300 Mg Cap PO 01/24/22 11:29 300 mg BID SHANTHI Administration Diltiazem HCl 360 mg 12/25/21 09:00 12/26/21 08:35 Diltiazem Hcl 180 Mg Capcr PO 01/24/22 08:59 360 mg DAILY SHANTHI Administration Doxycycline Hyclate 100 mg 12/25/21 11:30 12/26/21 08:34 Doxycycline Hyclate 100 Mg Cap PO 02/05/22 11:29 100 mg BID SHANTIH Administration Fluoxetine HCl 40 mg 12/20/21 09:00 12/26/21 08:33 Fluoxetine Hcl 20 Mg Cap PO 01/19/22 08:59 40 mg DAILY SHANTHI Administration Heparin Sodium (Porcine) 5,000 units 12/20/21 06:00 12/26/21 12:25 Heparin Sod 5,000 Unit/0.5 Ml Vial SQ 01/19/22 05:59 Not Given Q8 SHANTHI Insulin Aspart 0 units 12/19/21 21:23 12/26/21 12:19 Insulin Aspart Per Unit SC 01/18/22 21:22 8 units ACHS SHANTHI Administration Levothyroxine Sodium 100 mcg 12/23/21 06:30 12/23/21 06:11 Levothyroxine Sodium 100 Mcg Tablet PO 01/22/22 06:29 100 mcg Sa@0630 SHANTHI Administration Levothyroxine Sodium 175 mcg 12/20/21 06:30 12/26/21 06:09 Levothyroxine Sodium 175 Mcg Tablet PO 01/19/22 06:29 175 mcg [id number]@0630 SHANTHI Administration Nystatin/Triamcinolone Acetonide 1 appln 12/22/21 21:00 12/26/21 08:36 Nystatin/Triamcin Cr 15 Gm Tube EXT 01/21/22 20:59 1 appln BID SHANTHI Administration Ondansetron HCl 4 mg 12/19/21 21:23 12/19/21 22:17 Ondansetron Inj 2 Mg/Ml 2 Ml Vial IV 01/18/22 21:22 4 mg Q4H PRN Administration Nausea And Vomiting Pantoprazole Sodium 40 mg 12/20/21 09:00 12/26/21 08:34 Pantoprazole 40 Mg Tab PO 01/19/22 08:59 40 mg DAILY SHANTHI Administration Protocol Potassium Chloride 20 meq 12/22/21 21:00 12/26/21 08:34 Potassium Chloride Crtab 20 Meq Tabcr PO 01/21/22 20:59 20 meq BID SHANTHI Administration Senna/Docusate Sodium 1 tab 12/20/21 00:40 12/26/21 09:32 Docusate Sodium/Senna 50/8.6mg Tab PO 01/19/22 00:39 Not Given QAM SHANTHI Vitamin D 1,000 units 12/20/21 09:00 12/26/21 08:34 Cholecalciferol 1,000 Units 25 Mcg Tab PO 01/19/22 08:59 1,000 units DAILY SHANTHI Administration Past Medical History Medical History (Updated 12/26/21 @ 15:09 by Suman Silva MD) Breast cyst Diabetic foot ulcers DM II (diabetes mellitus, type II), controlled Pito's disease HTN (hypertension) Hyponatremia Lung nodule Meningioma Tobacco abuse, in remission Meningioma Previously followed with neurology --MRI Brain: No acute intracranial findings. 1.5 cm extra-axial enhancing lesion overlying the anterior medial left frontal lobe. This is suggestive of a meningioma. Comparison with prior imaging studies, if available, is recommended. In the absence of prior studies, a follow-up MRI of the brain in 6 months is recommended. -- Advised tofollow-up with neurosurgeryas outpatient Past Family History Family History Aunt Cancer Ovarian age 31 Aunt Cancer Throat, bladder Uncle Cancer Prostate Mother Heart disease Hypertension Past Surgical History Surgical History H/O removal of cyst Hx of foot surgery Hx of hand surgery Hx of total hysterectomy Social History Smoking Status: Never smoker Smoking End Date: 2007 Hx Alcohol Use: No Hx Substance Use: No Physical Exam Vital Signs Last Vital Signs Temp 36.7 C 12/26/21 10:53 Pulse 73 12/26/21 10:53 Resp 20 12/26/21 10:53 BP 136/84 12/26/21 10:53 Pulse Ox 95 12/26/21 10:53 O2 Del Method 12/26/21 10:53 O2 Flow Rate 2 12/23/21 08:30 Testing Laboratory Results 12/26/21 08:14 12/26/21 08:14 PT 12.6 Seconds (9.0-12.0) H 12/19/21 12:45 INR 1.2 (0.9-1.1) H 12/19/21 12:45 APTT 33.6 Seconds (21.0-31.0) H 12/19/21 12:45 Hemoglobin A1c 10.1 % (4.5-5.6) H 12/20/21 06:27 Urine Color Dark Yellow 12/19/21 16:26 Urine Appearance Clear (Clear) 12/19/21 16:26 Urine pH 5.0 (4.5-7.5) 12/19/21 16:26 Ur Specific [place] 1.017 (1.000-1.030) 12/19/21 16:26 Urine Protein Trace (Negative) H 12/19/21 16:26 Urine Glucose (UA) Negative (Negative) 12/19/21 16:26 Urine Ketones Trace (Negative) H 12/19/21 16:26 Urine Nitrite Negative (Negative) 12/19/21 16:26 Ur Leukocyte Esterase Negative (Negative) 12/19/21 16:26 Urine WBC (Auto) 1-5 /hpf (0-5) 12/19/21 16:26 Urine RBC (Auto) 0-4 /hpf (0-4) 12/19/21 16:26 U Hyaline Cast (Auto) 10-30 /lpf (0-5) H 12/19/21 16:26 U Epithel Cells (Auto) >30 /lpf (0-5) H 12/19/21 16:26 Urine Bacteria (Auto) Negative (Negative) 12/19/21 16:26 12/19/21 14:32 Aerobic Blood Culture - Final Blood No growth in Aerobic bottle after 5 days. Anaerobic Blood Culture - Final No growth in Anaerobic bottle after 5 days. 12/19/21 12:45 Aerobic Blood Culture - Final Blood No growth in Aerobic bottle after 5 days. Anaerobic Blood Culture - Final No growth in Anaerobic bottle after 5 days. 12/20/21 21:00 Gram Stain - Final Foot,Left Wound Culture - Final Staph aureus MRSA Staphylococcus aureus 12/20/21 21:00 Gram Stain - Final Foot,Right Wound Culture - Final Group B Beta Strep 12/26/21 12/26/21 11:58 07:19 POC Glucose 247 H 192 H Electrocardiogram Date: 12/19/21 DICTATED BY:Myles Kingsley MD Test Reason : Blood Pressure : / mmHG Vent. Rate : 070 BPM Atrial Rate : 070 BPM P-R Int : 174 ms QRS Dur : 088 ms QT Int : 438 ms P-R-T Axes : 063 006 030 degrees QTc Int : 473 ms Poor data quality, interpretation may be adversely affected Normal sinus rhythm Poor R wave progression, consider anterior MS vs. lead placement vs. LVH Abnormal ECG No previous ECGs available Confirmed by Myles Kingsley ([id number]) on 12/19/2021 2:33:57 PM Chest X-Ray Date: 12/19/21 XR chest 1V not portable CLINICAL HISTORY: Sepsis TECHNIQUE: Single frontal radiograph of the chest was obtained. Comparison: None available at the time of this dictation. FINDINGS: No lines and tubes are seen. The cardiomediastinal silhouette is normal. The lungs are clear. No evidence of pleural effusion or pneumothorax. IMPRESSION: No acute chest disease.
[2021-12-26] MEDS ORDERED: BUPIVACAINE 0.5 % 5 MG/1 ML MPF 30ML VIAL ONE (16:21)
[2021-12-26] MEDS ORDERED: LIDOCAINE 2% 2 ML VIAL/AMP(20MG/ML) INFIL ONE (16:49)
[2021-12-26] MEDS ORDERED: ONDANSETRON INJ 2 MG/ML 2 ML VIAL ONE (16:49)
[2021-12-26] MEDS ORDERED: PROPOFOL IV EMULSION 10 MG/ML 20 ML VIAL IV ONE (16:49)
[2021-12-26] MEDS ORDERED: MIDAZOLAM HCL 1 MG/ML 2ML VIAL ONE (16:50)
[2021-12-26] MEDS ORDERED: fentaNYL citrate 100 MCG/2 ML VIAL ONE (16:50)
[2021-12-26] MEDS ORDERED: CLINDAMYCIN/D5W 600 MG/50 ML BAG IV ONE (17:06)
[2021-12-26] MEDS ORDERED: CLINDAMYCIN 600 MG/D5W 50 ML BAG IV ONE (17:07)
[2021-12-26] MEDS ORDERED: fentaNYL citrate 100 MCG/2 ML VIAL IV PRN (17:21)
[2021-12-26] MEDS ORDERED: ATROPINE SULFATE 0.1 MG/ML 10ML SYR IV PRN (17:21)
[2021-12-26] MEDS ORDERED: ePHEDrine sulfate 50 MG/ML AMP IV PRN (17:21)
[2021-12-26] MEDS ORDERED: ONDANSETRON INJ 2 MG/ML 2 ML VIAL IV PRN (17:21)
[2021-12-26] MEDS ORDERED: HYDROmorphone INJ 1 MG/ML SYRINGE IV PRN (17:21)
--- NOTE | 2021-12-26 17:22 | History & Physical Bridge Note ---
Date of Service December 26, 2021 History & Physical Bridge Note I have examined the patient, reviewed the History & Physical and in the interval since the performance of the History & Physical I have noted the following changes of clinical significance: no changes noted
--- NOTE | 2021-12-26 19:59 | Post Operative Brief Note ---
Immediate Post Op Note v1 Date of Surgery December 26, 2021 Pre & Post Diagnosis Operation Date: 12/26/21 09:40 Pre-Op Diagnosis: Diabetic foot infection Post-Op Diagnosis: Diabetic foot infection I identified the patient and participated in the time-out.: Yes Procedure Operation Date: 12/26/21 09:40 Actual Procedures p Right 2nd Ray Amputation, Right 3rd Metatarsal and Left 2nd Metatarsal with Application of Bilateral Wound Vacs(Bilateral) - Tim Phillip DPM, MS Surgeon Tim Phillip DPM, MS Retort Firer none Estimated Blood Loss 10 Findings Consistent with Post-Op Diagnosis none
--- NOTE | 2021-12-26 20:03 | Anesthesiology Progress Note ---
Date of Service December 26, 2021 Anesthesia Post Procedure Vital Signs Vital Signs: Temp Pulse Pulse Resp BP BP Pulse Ox 12/26/21 19:55 69 20 125/78 94 12/26/21 19:45 71 20 131/82 94 12/26/21 19:36 36.9 C 77 20 127/77 94 12/26/21 16:59 36.6 C 69 22 127/71 95 12/26/21 15:25 36.7 C 67 20 115/71 92 12/26/21 10:53 36.7 C 73 20 136/84 95 12/26/21 08:00 12/26/21 07:22 36.6 C 72 20 118/73 93 12/26/21 03:00 36.6 C 70 18 117/69 91 12/25/21 22:13 69 12/25/21 22:00 37 C 72 20 118/70 94 O2 Del Method O2 Flow Rate 12/26/21 19:55 Oxymask 8 12/26/21 19:45 Oxymask 8 12/26/21 19:36 Oxymask 8 12/26/21 16:59 Room Air 12/26/21 15:25 Room Air 12/26/21 10:53 Room Air 12/26/21 08:00 Room Air 12/26/21 07:22 Room Air 12/26/21 03:00 Room Air 12/25/21 22:13 12/25/21 22:00 Room Air Pain Intensity Foot: Pain Intensity: 6 Transfer of Care Handoff Completed per policy Notes Mental Status: alert / awake / arousable and participated in evaluation Patient Amnestic to Procedure: Yes Nausea / Vomiting: adequately controlled Pain: adequately controlled Airway Patency, RR, SpO2: stable & adequate BP & HR: stable & adequate Hydration State: stable & adequate Anesthetic Complications: no major complications apparent and Pt Satisfied with anesthetic care
[2021-12-26] MEDS: LANTUS PER UNIT CHARGE SQ SCH (21:10)
[2021-12-26] MEDS: ATORVASTATIN 20 MG TAB PO SCH (21:33)
--- NOTE | 2021-12-26 22:04 | Operative Report ---
Post Operative Report Pre & Post Diagnosis Operation Date: 12/26/21 09:40 Pre-Op Diagnosis: Diabetic foot infection Post-Op Diagnosis: Diabetic foot infection I identified the patient and participated in the time-out.: Yes Procedure Operation Date: 12/26/21 09:40 Actual Procedures p Right 2nd Ray Amputation, Right 3rd Metatarsal and Left 2nd Metatarsal with Application of Bilateral Wound Vacs(Bilateral) - Tim Phillip DPM, MS Surgeon Tim Phillip DPM, MS Machine Bander And Cellophaner none Estimated Blood Loss 10 Findings Consistent with Post-Op Diagnosis none Specimens 1.) Right 3rd Metatarsophalangeal Joint Pathology 2.) Right 2nd Ray Pathology 3.) Left 2nd Metatarsophalangeal Joint Pathology 4.) Right 2nd metatarsal microbiology Description of Procedure History of present illness: Patient is a 66 year old female who is seen for treatment of osteomyelitis of the Right and Left foot. Patient has elected for excision of nonviable bone with application of wound vac. All questions answered. Discussed procedure in detail and postoperative recovery. All potential risks, benefits, complications, alternatives, rehab, potential for incomplete relief of symptoms, need for further surgery, DVT, PE, , persistent pain, swelling, scarring, weakness, neurovascular, wound complications, and potential for amputations were discussed with patient. Unwanted outcomes such as, but not limited to were reviewed including under correction, overcorrection, return of deformity, infection. All questions were answered. Patient has decided to proceed with procedure as indicated. Preoperative diagnosis: 1.) Diabetic ulcer right and left foot 2,) Osteomyelitis second intermediate and proximal phalanx and second metatarsal right foot 3.) Osteomyelitis third proximal phalanx and third metatarsal right foot 4.) Osteomyelitis second proximal phalanx and second metatarsal left foot Postoperative diagnosis: same Name of operation: 1.) Amputation right second ray 2.) Partial excision of Right third proximal phalanx and third metatarsal 3.) Excision of Right diabetic foot ulcer and application of negative pressure wound therapy 4.) Partial excision of Left second proximal phalanx and second metatarsal 5.) Excision of Left diabetic foot ulcer and application of negative pressure wound therapy Surgeon Dr. Phillip Machine Bander And Cellophaner: None Anesthesia: local with monitored anesthesia care Hemostasis: pneumatic ankle tourniquet Estimated blood loss: minimal Procedure in detail: Under mild sedation the patient was brought in the operating room placed on the operating table in supine position. A pneumatic ankle tourniquet was then placed about the patient's right and left calf. Following IV sedation local anesthesia was obtained about the right and left foot utilizing 15 cc of a one-to-one mixture of 1% lidocaine plain and 0.5% Marcaine plain. The right and left foot was then prepped scrubbed and draped in usual aseptic manner. An Esmarch bandage was utilized to exsanguinate the patient's right foot and the pneumatic ankle tourniquet was then inflated. Attention was then directed to a nonhealing diabetic ulcer on the right plantar foot over the second metatarsal and probes to bone. The wound measures approximately 1.3 x 1.5 x 1.5cm. Utilizing a sharp, sterile, #15 blade the wound was excised and placed on the back table. Next, utilizing a sharp, sterile, new #15 blade an incision was created surrounding the second digit reaching plantar to the excised diabetic foot ulcer and dorsally to a point over the second metatarsal base. The incision was deepened through subcutaneous tissue using sharp blunt dissection. Care was taken to identify and retract all vital neurovascular structures. All bleeders were ligated and cauterized necessary. An oscillating saw was used to partially excise the second metatarsal. The second ray was the detached from the right foot and placed on the back table. A portion of the second metatarsal head was sent to microbiology. The remaining second ray was sent to pathology. Attention was the directed to the dorsal right foot. Utilizing a sharp, sterile, #15 blade an incision was created over the third metatarsal and third proximal phalanx. The incision which was deepened through subcutaneous tissue using sharp blunt dissection. Care was taken to identify and retract all vital neurovascular structures. All bleeders were ligated and cauterized as necessary. An oscillating saw was used to remove the right third metatarsal head and right third proximal phalanx base. These were placed on the back table, labeled right third metatarsophalangeal joint and sent to pathology. Copious amounts of lactate ringer were utilized to flush the excision site. The skin was then primarily closed utilizing 3-0 nylon in horizontal suture mattress techniques as well as simple suture closure. Negative pressure wound therapy was applied to the plantar excised right foot diabetic foot ulcer. The [facility] wound vac was placed on continuous 125mmHg. An Esmarch bandage was utilized to exsanguinate the patient's left foot and the pneumatic ankle tourniquet was then inflated. Attention was then directed to a nonhealing diabetic ulcer on the left plantar foot over the second metatarsal and probes to bone. The wound measures approximately 1.4 x 1.4 x 1.1cm. Utilizing a sharp, sterile, #15 blade the wound was excised and placed on the back table. Attention was the directed to the dorsal left foot. Utilizing a sharp, sterile, #15 blade an incision was created over the second metatarsal and second proximal phalanx. The incision which was deepened through subcutaneous tissue using sharp blunt dissection. Care was taken to identify and retract all vital neurovascular structures. All bleeders were ligated and cauterized as necessary. An oscillating saw was used to remove the left second metatarsal head and left second proximal phalanx base. These were placed on the back table, labeled left second metatarsophalangeal joint and sent to pathology. Copious amounts of lactate ringer were utilized to flush the excision site. The skin was then primarily closed utilizing 3-0 nylon in horizontal suture mattress techniques as well as simple suture closure. Negative pressure wound therapy was applied to the plantar excised left foot diabetic foot ulcer. The [facility] wound vac was placed on continuous 125mmHg. The right and left pneumatic ankle tourniquets were deflated, and a prompt hyperemic response was noted to all digits of the right and left foot. The Patient tolerated the procedure and anesthesia well. She was transferred to recovery room vital signs stable . After a period of postoperative monitoring the patient will be readmitted to the floor on the following postoperative instructions. Resume all preoperative orders, keep dressing clean dry and intact, avoid ambulation and contact Dr. Phillip for all postoperative care if any problems arise . I attest to the content of the Intraoperative Record and any orders documented therein. Any exceptions are noted below.
[2021-12-27] MEDS: HEPARIN SOD 5,000 UNIT/0.5 ML VIAL SQ SCH ×3 (05:13→21:05)
[2021-12-27] MEDS: LEVOTHYROXINE SODIUM 175 MCG TABLET PO SCH (05:16)
[2021-12-27 07:45] LABS: Hematocrit (blood only) 34.7 % (34.1-44.9); Mean Corpuscular Hemoglobin 25.2 pg (25.0-34.0); Mean Corpuscular Hgb Conc 31.7 g/dL (32.0-36.0); Mean Corpuscular Volume 79.4 fL (80.0-100.0); Mean Platelet Volume 12.1 fL (9.4-12.3); Platelet Count 319 K/uL (130-400); RDW Coefficient of Variation 15.7 % (11.5-14.5); RDW Standard Deviation 44.7 fL (36.4-46.3); Red Blood Count 4.37 M/uL (3.93-5.22); White Blood Count 8.71 K/ul (4.8-10.8)
[2021-12-27] MEDS: POTASSIUM CHLORIDE CRTAB 20 MEQ TABCR PO SCH ×2 (07:49→21:07)
[2021-12-27] MEDS: ASPIRIN 81 MG ECTAB PO SCH (07:50)
[2021-12-27] MEDS: DOXYCYCLINE HYCLATE 100 MG CAP PO SCH ×2 (07:50→21:08)
[2021-12-27] MEDS: CEFDINIR 300 MG CAP PO SCH ×2 (07:50→21:07)
[2021-12-27] MEDS: PANTOprazole 40 MG TAB PO SCH (07:50)
[2021-12-27] MEDS: FLUoxetine HCL 20 MG CAP PO SCH (07:50)
[2021-12-27] MEDS: dilTIAZem HCL 180 MG CAPCR PO SCH (07:51)
[2021-12-27] MEDS: CHOLECALCIFEROL 1,000 UNITS 25 MCG TAB PO SCH (07:51)
[2021-12-27] MEDS: DOCUSATE SODIUM/SENNA 50/8.6MG TAB PO SCH (07:51)
[2021-12-27] MEDS: DAKIN'S SOLN 0.125% QUARTER STRENGTH 473 ML BTL EXT SCH (07:52)
[2021-12-27] MEDS: NYSTATIN/TRIAMCIN CR 15 GM TUBE EXT SCH ×2 (07:53→21:08)
[2021-12-27 08:29] LABS: BUN Creatinine Ratio 15.7 (10-20); Calcium 9.3 mg/dl (8.5-10.1); Creatinine Clr Calc Pharmacy 102.8 ml/min; Est GFR (African American) 105.4 ml/min; Est GFR (Non-African American) 90.9 ml/min; Potassium 4.5 mmol/L (3.5-5.1)
[2021-12-27] MEDS ORDERED: LANTUS PER UNIT CHARGE SQ ONE (08:30)
[2021-12-27] MEDS: INSULIN ASPART PER UNIT SC SCH ×5 (08:59→21:09)
[2021-12-27] MEDS: CHLORTHALIDONE 25 MG TAB PO SCH (10:06)
[2021-12-27] MEDS ORDERED: INSULIN HUMAN REGULAR PER UNIT 8 UNITS in SYRINGE 7.92 ML IV ONE (12:00)
--- NOTE | 2021-12-27 13:06 | Pharmacy Report ---
Pharmacy Glycemic Short Note 2 - Date of Service December 27, 2021 - Glycemic Short BSG Results (Last 24 hours): 12/26/21 12/26/21 12/26/21 16:34 19:39 20:44 Glucose POC Glucose 125 H 161 H 190 H 12/27/21 12/27/21 12/27/21 07:30 07:47 07:49 Glucose 347 H* POC Glucose 389 H* 409 H* 12/27/21 12/27/21 11:26 11:27 Glucose POC Glucose 339 H* 330 H* OUTPATIENT ANTIDIABETIC REGIMEN: * Metformin 1gm PO BID * Glipizide 10mg PO BID * Trulicity 1.5mg SQ weekly * HbA1c: 10.1% (12/20/21) ASSESSMENT: 12/27/21 * Patient received 44 units yesterday of which 29 were basal. Patient was NPO due to procedure for most of the day until returning from procedure late in the evening. * Per Nurse, patient had been eating overnight and no insulin coverage was given. * Blood sugar this morning was 389, repeat POC 409. Increased AM lantus to 25 units and gave 8 units IV insulin with lunch. 12/25/21 * Patient's BSGs yesterday were [phone] mg/dL. Patient received 71 units of insulin (33 units of basal and 38 units of bolus). * Fasting today is 172 mg/dL which is trending down slightly. * Increase Lantus to 18 units BID which is about 10% increase since fasting still above goal. * Continue Novolog as BSGs corrected appropriately yesterday. 12/23/21: * Jessenia received 47 units of SQ insulin yesterday * 13 units Lantus + 34 units Novolog * BSGs: 182, 279, 122, 209 mg/dL * Fasting BSG of 218 mg/dL is above goal. Current regimen (based on previous 24h usage) is ~28% basal/72% bolus- will continue to titrate Lantus dose and attempt to move closer to 50% basal/50% bolus split. * Post prandial BSGs are fluctuating. Will tighten carb coverage. 12/23/11: * Ms Staton is a 66yo diabetic F admitted with b/l foot cellulitis/osteomyelitis. * She has some DM med compliance issues (see CDE note for more details as well as discharge recommendations). * Pt has been hyperglycemic during admission. Pharmacy consulted this afternoon to aid with glycemic mgmt. * Lantus increased beginning this evening for fasting BSG above goal. * Novolog parameters adjusted to provide additional carb coverage for better control throughout the day. * Pt is receiving vancomycin, metronidazole, and cefepime. * Will target strict glycemic control in the setting of infection. PLAN FOR INPATIENT GLYCEMIC CONTROL: * Hold outpatient oral diabetes medications * Basal insulin * Lantus 15-20-25 (see protocol text for criteria) BID based upon BSG value * Bolus insulin * NovoLog per scale ACHS or Q6hrs while NPO * Goal Range: Low 110 mg/dL - High 140 mg/dL * Correction Factor: 15 mg/dL/unit * Nutritional / Prandial insulin per carb ratio of 1 unit per 5 grams CHO consumed
--- NOTE | 2021-12-27 15:24 | Hospitalist Progress Note ---
Date of Service December 27, 2021 Assessment & Plan (1) Diabetic foot infection: Plan 66-year-old lady with PMH of T2DM, diabetic neuropathy, diabetic foot ulcers for which she follows with wound clinic for many months, Pito's, Hawley's esophagus, brain meningioma presented to the ED 12/19 as bilateral foot also had foul smell associated with increased redness and swelling. She is being managed for the following: Right and left foot osteomyelitis-POA Infected Bilateral diabetic foot ulcers Hx of Diabetic foot for last 2 years. --MRI foot:Osteomyelitis and cellulitis are seen in the right greater than left feet. No drainable fluid collections are seen. In the right foot, there is involvement of the second and third metatarsals, second and third proximal phalanges, and second digit middle phalanx. Degenerative changes are seen in the bilateral feet. --Blood Culture no growth. --Wound Culture MRSA, staph species, group B beta strep -- was empirically started on Vanco, cefepime, Flagyl initially ---> then changed to cefdinir and doxy. -- 12/26 s/p Right 2nd Ray Amputation, Right 3rd Metatarsal and Left 2nd Metatarsal with Application of Bilateral Wound Vacs(Bilateral) - Tim Phillip, MILA, MS Plan: -Prior attending discussed with infectious disease over the phone. Recommended that patient be placed on cefdinir to cover for group B strep and doxycycline to cover for MRSA based on the wound culture result.Now that she underwent procedures (see above), await operative culture and then reconnect w/ ID for DC recs. -Continue wound care.Network Services Project Manager f/u on AR. (3) DM II (diabetes mellitus, type II), controlled: Plan: -Uncontrolled -On glipizide, metformin and Trulicity at home Non complaint with medications HbA1c 10.1 --Usually blood glucose is in the 300s-400s as per daughter -Julian BOX while hospitalized, glycemic pharmacy on board. -inclusion special educator consulted (4) Nausea & vomiting: Plan: --CT ABD:No acute infectious or inflammatory findings are identified in the abdomen or pelvis. Mild hepatosplenomegaly. Hiatal hernia. --Gall Bladder USD:No acute sonographic abnormality is seen in the right upper quadrant. No gallstones are identified. The liver is enlarged and mildly steatotic. -- Currently no issues Monitor Right lower lobe pulmonary nodule--chronic Patient aware of Pulm nodule H/O Tobacco use --CT showed: Pathologically indeterminant 11 mm right lower lobe pulmonary nodule. A follow-up chest CT in 6 months time is recommended for reassessment and full evaluation --Advised to follow up as outpatient and CT chest in 6 months. Meningioma Previously followed with neurology --MRI Brain: No acute intracranial findings. 1.5 cm extra-axial enhancing lesion overlying the anterior medial left frontal lobe. This is suggestive of a meningioma. Comparison with prior imaging studies, if available, is recommended. In the absence of prior studies, a follow-up MRI of the brain in 6 months is recommended. -- Advised to follow-up with neurosurgery as outpatient Hyponatremia: Mild, likely due to dehydration, stable. Monitor. Other electrolyte abnormalities: Monitor and replete as appropriate. Other chronic medical conditions: Pito's/HTN -->> continue with/resume home meds as and when appropriate. DVT prophylaxis: Heparin subcu CODE STATUS: Full code Dispo: PT/OT, to OR today. CM to assist with DC planning. Family Contact: Nathalie Staton Contact Number:[phone] Dispo: pending operative C/S result, atb finalization w/ id and w/ podiatry recs. Admission and Anticipated Discharge Date Admission Date: December 19, 2021 Subjective Patient seen and examined at bedside as a follow-up of bilateral foot osteomyelitis and infected bilateral diabetic foot ulcers and uncontrolled DM 2. Patient was sitting up in bed, on room air, NAD, denies any new acute event ove rnight, reports pain under control at operative site, reports eating ok and moving bowels ok. Patient denies any pain or discomfort. Patient denies any headache/dizziness/fever/chills/chest pain/palpitations/other review of symptoms. Physical Exam Physical Exam: GENERAL: Alert and oriented x3. NAD, on RA. Class I obese. HEENT: No pallor, no icterus. Pupils equal, round and reactive to light. Oral mucosa moist. NECK: No JVD, no neck masses. HEART: S1 and S2 heard. Regular rate and rhythm. No murmur, no gallop. RESPIRATORY SYSTEM: Normal AP diameter. No accessory muscle use. No wheezing, no crackles. ABDOMEN: Soft, bowel sounds present, nontender, no distention. CENTRAL NERVOUS SYSTEM: No facial droop. Speech is clear. Obeys simple commands. Moves extremities. EXTREMITIES: No edema, no erythema seen. b/l foot dressing, c/d/i. Rt 2nd toe amputation noted. Results & Data Results & Data ([facility]) Vital Signs (Past 12 Hours) Vital Signs Temp Pulse Pulse Resp BP BP Pulse Ox 12/27/21 11:29 36.7 C 72 18 118/70 96 12/27/21 10:57 12/27/21 07:08 36.5 C 71 18 135/80 96 12/27/21 07:22 65 12/27/21 04:38 93 H 12/27/21 03:42 36.6 C 87 18 128/78 96 O2 Del Method O2 Flow Rate 12/27/21 11:29 Nasal Cannula 4 12/27/21 10:57 Nasal Cannula 5 12/27/21 07:08 Nasal Cannula 4 12/27/21 07:22 12/27/21 04:38 12/27/21 03:42 Nasal Cannula 4
--- NOTE | 2021-12-27 20:19 | Orthopedic Progress Note ---
Date of Service December 27, 2021 Assessment & Plan (1) Diabetic foot ulcers: Plan: Patient seen, evaluated, and treated. Awaiting culture and sensitives from Micro. Awaiting clear margins from Pathology. Patient is non weight bearing. Wound vac changes M, W, F. Thank you for allowing me to participate in the care of this Patient. (2) Diabetic foot infection: (3) DM II (diabetes mellitus, type II), controlled: Admission and Anticipated Discharge Date Admission Date: December 19, 2021 Subjective Patient seen at bedside status post Day #1 bilateral foot surgery. She relates no complaints. and resting comfortably. Review of Systems Review of Systems: All systems reviewed & are unremarkable except as noted in HPI & below Physical Exam Physical Exam: Dressing clean dry and intact. Wound vacs running as Rx'd 125mmHg continuous. Results & Data ([facility]) Vital Signs (Past 12 Hours) Vital Signs Temp Pulse Pulse Resp BP BP Pulse Ox 12/27/21 19:37 36.6 C 66 18 105/65 96 12/27/21 15:34 36.6 C 70 18 121/79 96 12/27/21 15:19 68 12/27/21 11:29 36.7 C 72 18 118/70 96 12/27/21 10:57 O2 Del Method O2 Flow Rate 12/27/21 19:37 Nasal Cannula 4 12/27/21 15:34 Nasal Cannula 4 12/27/21 15:19 12/27/21 11:29 Nasal Cannula 4 12/27/21 10:57 Nasal Cannula 5
[2021-12-27] MEDS: ATORVASTATIN 20 MG TAB PO SCH (21:08)
[2021-12-27] MEDS: LANTUS PER UNIT CHARGE SQ SCH (21:09)
[2021-12-28] MEDS ORDERED: INSULIN ASPART PER UNIT SC SCH
[2021-12-28] MEDS: LEVOTHYROXINE SODIUM 175 MCG TABLET PO SCH (06:28)
[2021-12-28] MEDS: HEPARIN SOD 5,000 UNIT/0.5 ML VIAL SQ SCH ×3 (06:28→21:00)
[2021-12-28 07:14] LABS: Hematocrit (blood only) 33.3 % (34.1-44.9); Hemoglobin 10.4 g/dl (12.0-16.0); Mean Corpuscular Hemoglobin 25.4 pg (25.0-34.0); Mean Corpuscular Hgb Conc 31.2 g/dL (32.0-36.0); Mean Corpuscular Volume 81.4 fL (80.0-100.0); Mean Platelet Volume 12.1 fL (9.4-12.3); Platelet Count 294 K/uL (130-400); RDW Standard Deviation 45.6 fL (36.4-46.3); Red Blood Count 4.09 M/uL (3.93-5.22); White Blood Count 9.03 K/ul (4.8-10.8)
[2021-12-28 07:48] LABS: BUN Creatinine Ratio 18.1 (10-20); Calcium 9.2 mg/dl (8.5-10.1); Creatinine Clr Calc Pharmacy 99.9 ml/min; Est GFR (African American) 101.9 ml/min; Est GFR (Non-African American) 87.9 ml/min; Potassium 4.1 mmol/L (3.5-5.1)
[2021-12-28] MEDS: LANTUS PER UNIT CHARGE SQ SCH ×2 (08:06→21:19)
[2021-12-28] MEDS: INSULIN ASPART PER UNIT SC SCH ×4 (08:06→21:18)
[2021-12-28] MEDS: DOCUSATE SODIUM/SENNA 50/8.6MG TAB PO SCH (08:07)
[2021-12-28] MEDS: POTASSIUM CHLORIDE CRTAB 20 MEQ TABCR PO SCH ×2 (08:07→21:01)
[2021-12-28] MEDS: CHOLECALCIFEROL 1,000 UNITS 25 MCG TAB PO SCH (08:07)
[2021-12-28] MEDS: CEFDINIR 300 MG CAP PO SCH ×2 (08:07→21:00)
[2021-12-28] MEDS: ASPIRIN 81 MG ECTAB PO SCH (08:07)
[2021-12-28] MEDS: DOXYCYCLINE HYCLATE 100 MG CAP PO SCH ×2 (08:07→21:01)
[2021-12-28] MEDS: FLUoxetine HCL 20 MG CAP PO SCH (08:07)
[2021-12-28] MEDS: PANTOprazole 40 MG TAB PO SCH (08:08)
[2021-12-28] MEDS: dilTIAZem HCL 180 MG CAPCR PO SCH (08:08)
[2021-12-28] MEDS: DAKIN'S SOLN 0.125% QUARTER STRENGTH 473 ML BTL EXT SCH (08:09)
[2021-12-28] MEDS: CHLORTHALIDONE 25 MG TAB PO SCH (08:09)
[2021-12-28] MEDS: NYSTATIN/TRIAMCIN CR 15 GM TUBE EXT SCH ×2 (08:09→21:08)
--- NOTE | 2021-12-28 11:01 | Hospitalist Progress Note ---
Date of Service December 28, 2021 Assessment & Plan (1) Diabetic foot infection: Plan 66-year-old lady with PMH of T2DM, diabetic neuropathy, diabetic foot ulcers for which she follows with wound clinic for many months, Pito's, Hawley's esophagus, brain meningioma presented to the ED 12/19 as bilateral foot also had foul smell associated with increased redness and swelling. She is being managed for the following: Right and left foot osteomyelitis-POA Infected Bilateral diabetic foot ulcers s/p Right 2nd Ray Amputation, Right 3rd Metatarsal and Left 2nd Metatarsal with Application of Bilateral Wound Vacs(Bilateral) on 12/26/2021 Hx of Diabetic foot for last 2 years. --MRI foot:Osteomyelitis and cellulitis are seen in the right greater than left feet. No drainable fluid collections are seen. In the right foot, there is involvement of the second and third metatarsals, second and third proximal phalanges, and second digit middle phalanx. Degenerative changes are seen in the bilateral feet. --Blood Culture no growth. --Wound Culture MRSA, staph species, group B beta strep -- was empirically started on Vanco, cefepime, Flagyl initially ---> then changed to cefdinir and doxy. -- 12/26 s/p Right 2nd Ray Amputation, Right 3rd Metatarsal and Left 2nd Metatarsal with Application of Bilateral Wound Vacs(Bilateral) - Tim Phillip DPM, MS Plan: Patient is presently on cefdinir and doxycycline based on the superficial wound culture done in admission. Awaiting pathology and microbiology after the surgery; will discuss with ID regarding further recommendation after the results. Awaiting clear margin from pathology. Continue would care/. (3) DM II (diabetes mellitus, type II), controlled: Plan: -Uncontrolled -On glipizide, metformin and Trulicity at home Non complaint with medications HbA1c 10.1 --Usually blood glucose is in the 300s-400s as per dylan -Julian BOX while hospitalized, glycemic pharmacy on board. -clinical document improvement educator consulted (4) Nausea & vomiting: Plan: --CT ABD:No acute infectious or inflammatory findings are identified in the abdomen or pelvis. Mild hepatosplenomegaly. Hiatal hernia. --Gall Bladder USD:No acute sonographic abnormality is seen in the right upper quadrant. No gallstones are identified. The liver is enlarged and mildly steatotic. -- Currently no issues Monitor Right lower lobe pulmonary nodule--chronic Patient aware of Pulm nodule H/O Tobacco use --CT showed: Pathologically indeterminant 11 mm right lower lobe pulmonary nodule. A follow-up chest CT in 6 months time is recommended for reassessment and full evaluation --Advised to follow up as outpatient and CT chest in 6 months. Meningioma Previously followed with neurology --MRI Brain: No acute intracranial findings. 1.5 cm extra-axial enhancing lesion overlying the anterior medial left frontal lobe. This is suggestive of a meningioma. Comparison with prior imaging studies, if available, is recommended. In the absence of prior studies, a follow-up MRI of the brain in 6 months is recommended. -- Advised to follow-up with neurosurgery as outpatient Hyponatremia: Mild, likely due to dehydration, stable. Monitor. Other electrolyte abnormalities: Monitor and replete as appropriate. Other chronic medical conditions: Pito's/HTN -->> continue with/resume home meds as and when appropriate. DVT prophylaxis: Heparin subcu CODE STATUS: Full code Dispo: PT/OT, to OR today. CM to assist with DC planning. Family Contact: Nathalie Staton Contact Number:[phone] Dispo: pending operative C/S result, atb finalization w/ id and w/ podiatry recs. Admission and Anticipated Discharge Date Admission Date: December 19, 2021 Subjective Patient seen and examined at bedside. She is comfortably lying in the bed; not in distress. Wound VAC in place. Review of Systems Review of Systems: All systems reviewed & are unremarkable except as noted in Subjective Physical Exam Physical Exam: GENERAL: Alert and oriented x3. NAD, on RA. Class I obese. HEENT: No pallor, no icterus. Pupils equal, round and reactive to light. Oral mucosa moist. NECK: No JVD, no neck masses. HEART: S1 and S2 heard. Regular rate and rhythm. No murmur, no gallop. RESPIRATORY SYSTEM: Normal AP diameter. No accessory muscle use. No wheezing, no crackles. ABDOMEN: Soft, bowel sounds present, nontender, no distention. CENTRAL NERVOUS SYSTEM: No facial droop. Speech is clear. Obeys simple commands. Moves extremities. EXTREMITIES: No edema, no erythema seen. b/l foot dressing, c/d/i. Rt 2nd toe amputation noted. Results & Data Results & Data ([facility]) Vital Signs (Past 12 Hours) Vital Signs Temp Pulse Pulse Resp BP Pulse Ox Pulse Ox 12/28/21 08:00 93 12/28/21 07:50 12/28/21 07:50 95 12/28/21 07:00 53 L 12/28/21 06:50 36.5 C 66 18 123/72 91 12/28/21 03:24 36.5 C 61 18 146/89 H 94 12/28/21 01:50 64 O2 Del Method O2 Del Method O2 Flow Rate O2 Flow Rate 12/28/21 08:00 Nasal Cannula 3 12/28/21 07:50 Nasal Cannula 3 12/28/21 07:50 Nasal Cannula 4 12/28/21 07:00 12/28/21 06:50 Nasal Cannula 12/28/21 03:24 Nasal Cannula 4 12/28/21 01:50
[2021-12-28] MEDS: ATORVASTATIN 20 MG TAB PO SCH (21:00)
[2021-12-28] MEDS: ACETAMINOPHEN 500 MG TAB PO PRN (21:22)
[2021-12-29] MEDS: HEPARIN SOD 5,000 UNIT/0.5 ML VIAL SQ SCH ×3 (06:06→22:24)
[2021-12-29] MEDS: LEVOTHYROXINE SODIUM 175 MCG TABLET PO SCH (06:06)
[2021-12-29 07:08] LABS: Basophils # (auto) 0.01 K/uL (0-0.2); Basophils % (auto) 0.1 %; Eosinophils # (auto) 0.03 K/uL (0-0.50); Eosinophils % (auto) 0.4 %; Hemoglobin 10.7 g/dl (12.0-16.0); Immature Granulocytes # (auto) 0.08 K/uL (0.00-0.02); Lymphocytes # (auto) 1.73 K/uL (1.2-3.4); Lymphocytes % (auto) 22.4 %; Mean Corpuscular Hemoglobin 25.4 pg (25.0-34.0); Mean Corpuscular Hgb Conc 32.4 g/dL (32.0-36.0); Mean Corpuscular Volume 78.4 fL (80.0-100.0); Mean Platelet Volume 12.2 fL (9.4-12.3); Monocytes # (auto) 0.43 K/uL (0.24-0.82); Monocytes % (auto) 5.6 %; Neutrophils # (auto) 5.46 K/uL (1.4-6.5); Neutrophils % (auto) 70.5 %; Platelet Count 294 K/uL (130-400); RDW Standard Deviation 43.8 fL (36.4-46.3); Red Blood Count 4.21 M/uL (3.93-5.22); White Blood Count 7.74 K/ul (4.8-10.8)
[2021-12-29 07:32] LABS: Albumin Globulin Ratio 0.9 (0.9-2); Albumin Level 3.3 gm/dl (3.4-5.0); BUN Creatinine Ratio 18.8 (10-20); Bilirubin,Total 0.3 mg/dl (0.2-1.0); Calcium 9.7 mg/dl (8.5-10.1); Creatinine Clr Calc Pharmacy 105.6 ml/min; Est GFR (African American) 105.9 ml/min; Est GFR (Non-African American) 91.4 ml/min; Globulin 3.7 gm/dl (2.5-4.0)
[2021-12-29] MEDS: INSULIN ASPART PER UNIT SC SCH ×4 (08:13→21:56)
[2021-12-29] MEDS: ACETAMINOPHEN 500 MG TAB PO PRN (08:14)
[2021-12-29] MEDS: NYSTATIN/TRIAMCIN CR 15 GM TUBE EXT SCH ×2 (08:17→22:24)
[2021-12-29] MEDS: DOXYCYCLINE HYCLATE 100 MG CAP PO SCH ×2 (08:18→22:24)
[2021-12-29] MEDS: POTASSIUM CHLORIDE CRTAB 20 MEQ TABCR PO SCH ×2 (08:18→22:24)
[2021-12-29] MEDS: dilTIAZem HCL 180 MG CAPCR PO SCH (08:18)
[2021-12-29] MEDS: DAKIN'S SOLN 0.125% QUARTER STRENGTH 473 ML BTL EXT SCH (08:18)
[2021-12-29] MEDS: CEFDINIR 300 MG CAP PO SCH ×2 (08:18→22:24)
[2021-12-29] MEDS: ASPIRIN 81 MG ECTAB PO SCH (08:19)
[2021-12-29] MEDS: FLUoxetine HCL 20 MG CAP PO SCH (08:19)
[2021-12-29] MEDS: PANTOprazole 40 MG TAB PO SCH (08:19)
[2021-12-29] MEDS: CHOLECALCIFEROL 1,000 UNITS 25 MCG TAB PO SCH (08:19)
[2021-12-29] MEDS: DOCUSATE SODIUM/SENNA 50/8.6MG TAB PO SCH (08:19)
[2021-12-29] MEDS: CHLORTHALIDONE 25 MG TAB PO SCH (08:19)
[2021-12-29] MEDS ORDERED: LANTUS PER UNIT CHARGE SQ SCH (09:00)
--- NOTE | 2021-12-29 10:47 | Pharmacy Report ---
Pharmacy Glycemic Short Note 2 - Date of Service December 29, 2021 - Glycemic Short BSG Results (Last 24 hours): 12/28/21 12/28/21 12/28/21 11:36 16:48 20:45 Glucose POC Glucose 279 H 218 H 239 H 12/29/21 12/29/21 06:52 07:40 Glucose 271 H POC Glucose 272 H OUTPATIENT ANTIDIABETIC REGIMEN: * Metformin 1gm PO BID * Glipizide 10mg PO BID * Trulicity 1.5mg SQ weekly * HbA1c: 10.1% (12/20/21) ASSESSMENT: 12/29/21: * Despite aggressive insulin regimen, majority of BSGs remain >180mg/dL. * Lantus dose increased slightly again this morning. Will continue to titrate. * Novolog parameters tightened further, in an attempt for better control throughout the day. 12/27 * Patient received 44 units yesterday of which 29 were basal. Patient was NPO due to procedure for most of the day until returning from procedure late in the evening. * Per Nurse, patient had been eating overnight and no insulin coverage was given. * Blood sugar this morning was 389, repeat POC 409. Increased AM lantus to 25 units and gave 8 units IV insulin with lunch. 12/25 * Patient's BSGs yesterday were [phone] mg/dL. Patient received 71 units of insulin (33 units of basal and 38 units of bolus). * Fasting today is 172 mg/dL which is trending down slightly. * Increase Lantus to 18 units BID which is about 10% increase since fasting still above goal. * Continue Novolog as BSGs corrected appropriately yesterday. 12/23 * Jessenia received 47 units of SQ insulin yesterday * 13 units Lantus + 34 units Novolog * BSGs: 182, 279, 122, 209 mg/dL * Fasting BSG of 218 mg/dL is above goal. Current regimen (based on previous 24h usage) is ~28% basal/72% bolus- will continue to titrate Lantus dose and attempt to move closer to 50% basal/50% bolus split. * Post prandial BSGs are fluctuating. Will tighten carb coverage. 12/22 * Ms Staton is a 66yo diabetic F admitted with b/l foot cellulitis/osteomyelitis. * She has some DM med compliance issues (see CDE note for more details as well as discharge recommendations). * Pt has been hyperglycemic during admission. Pharmacy consulted this afternoon to aid with glycemic mgmt. * Lantus increased beginning this evening for fasting BSG above goal. * Novolog parameters adjusted to provide additional carb coverage for better control throughout the day. * Pt is receiving vancomycin, metronidazole, and cefepime. * Will target strict glycemic control in the setting of infection. PLAN FOR INPATIENT GLYCEMIC CONTROL: * Hold outpatient oral diabetes medications * Basal insulin * Lantus 25 units SQ BID * Bolus insulin * NovoLog per scale ACHS or Q6hrs while NPO * Goal Range: Low 110 mg/dL - High 140 mg/dL * Correction Factor: 12 mg/dL/unit * Nutritional / Prandial insulin per carb ratio of 1 unit per 4 grams CHO consumed
--- NOTE | 2021-12-29 12:05 | Hospitalist Progress Note ---
Date of Service December 29, 2021 Assessment & Plan (1) Diabetic foot infection: Plan 66-year-old lady with PMH of T2DM, diabetic neuropathy, diabetic foot ulcers for which she follows with wound clinic for many months, Pito's, Hawley's esophagus, brain meningioma presented to the ED 12/19 as bilateral foot also had foul smell associated with increased redness and swelling. She is being managed for the following: Right and left foot osteomyelitis-POA Infected Bilateral diabetic foot ulcers s/p Right 2nd Ray Amputation, Right 3rd Metatarsal and Left 2nd Metatarsal with Application of Bilateral Wound Vacs(Bilateral) on 12/26/2021 Hx of Diabetic foot for last 2 years. --MRI foot:Osteomyelitis and cellulitis are seen in the right greater than left feet. No drainable fluid collections are seen. In the right foot, there is involvement of the second and third metatarsals, second and third proximal phalanges, and second digit middle phalanx. Degenerative changes are seen in the bilateral feet. --Blood Culture no growth. --Wound Culture MRSA, staph species, group B beta strep -- was empirically started on Vanco, cefepime, Flagyl initially ---> then changed to cefdinir and doxy. -- 12/26 s/p Right 2nd Ray Amputation, Right 3rd Metatarsal and Left 2nd Metatarsal with Application of Bilateral Wound Vacs(Bilateral) - Tim Phillip DPM, MS Plan: Patient is presently on cefdinir and doxycycline based on the superficial wound culture done in admission. Awaiting pathology result regarding the margin of the wound to decide on further antibiotic treatment. Gram stain is negative and aerobic and anaerobic cultures preliminary result showed low counts mixed skin microbiota. Continue would care with wound VAC. (3) DM II (diabetes mellitus, type II), controlled: Plan: -Uncontrolled -On glipizide, metformin and Trulicity at home Non complaint with medications HbA1c 10.1 --Usually blood glucose is in the 300s-400s as per Julian Chavez while hospitalized, glycemic pharmacy on board. -early childhood educator aide consulted (4) Nausea & vomiting: Plan: --CT ABD:No acute infectious or inflammatory findings are identified in the abdomen or pelvis. Mild hepatosplenomegaly. Hiatal hernia. --Gall Bladder USD:No acute sonographic abnormality is seen in the right upper quadrant. No gallstones are identified. The liver is enlarged and mildly steatotic. -- Currently no issues Monitor Right lower lobe pulmonary nodule--chronic Patient aware of Pulm nodule H/O Tobacco use --CT showed: Pathologically indeterminant 11 mm right lower lobe pulmonary nodule. A follow-up chest CT in 6 months time is recommended for reassessment and full evaluation --Advised to follow up as outpatient and CT chest in 6 months. Meningioma Previously followed with neurology --MRI Brain: No acute intracranial findings. 1.5 cm extra-axial enhancing lesion overlying the anterior medial left frontal lobe. This is suggestive of a meningioma. Comparison with prior imaging studies, if available, is recommended. In the absence of prior studies, a follow-up MRI of the brain in 6 months is recommended. -- Advised to follow-up with neurosurgery as outpatient Hyponatremia: Mild, likely due to dehydration, stable. Monitor. Other electrolyte abnormalities: Monitor and replete as appropriate. Other chronic medical conditions: Pito's/HTN -->> continue with/resume home meds as and when appropriate. DVT prophylaxis: Heparin subcu CODE STATUS: Full code Dispo: PT/OT, to OR today. CM to assist with DC planning. Family Contact: Nathalie Staton Contact Number:[phone] Dispo: pending operative C/S result, atb finalization w/ id and w/ podiatry recs. Admission and Anticipated Discharge Date Admission Date: December 19, 2021 Subjective Patient seen and examined at bedside. She is comfortably lying in the bed; not in any distress. Review of Systems Review of Systems: All systems reviewed & are unremarkable except as noted in Subjective Physical Exam Physical Exam: GENERAL: Alert and oriented x3. NAD, on RA. Class I obese. HEENT: No pallor, no icterus. Pupils equal, round and reactive to light. Oral mucosa moist. NECK: No JVD, no neck masses. HEART: S1 and S2 heard. Regular rate and rhythm. No murmur, no gallop. RESPIRATORY SYSTEM: Normal AP diameter. No accessory muscle use. No wheezing, no crackles. ABDOMEN: Soft, bowel sounds present, nontender, no distention. CENTRAL NERVOUS SYSTEM: No facial droop. Speech is clear. Obeys simple commands. Moves extremities. EXTREMITIES: No edema, no erythema seen. b/l foot dressing, c/d/i. Rt 2nd toe amputation noted. Bilateral wound VAC in place. Results & Data Results & Data ([facility]) Vital Signs (Past 12 Hours) Vital Signs Temp Pulse Pulse Pulse Resp BP BP 12/29/21 11:00 37.0 C 72 17 138/78 12/29/21 08:00 12/29/21 07:50 36.6 C 58 L 16 146/80 H 12/29/21 07:30 63 12/29/21 07:20 12/29/21 07:00 63 12/29/21 04:00 36.5 C 56 L 18 154/82 H Pulse Ox Pulse Ox O2 Del Method O2 Del Method O2 Flow Rate O2 Flow Rate 12/29/21 11:00 95 Room Air 12/29/21 08:00 94 Nasal Cannula 2 12/29/21 07:50 95 Nasal Cannula 2 12/29/21 07:30 12/29/21 07:20 Nasal Cannula 2 12/29/21 07:00 12/29/21 04:00 96 Nasal Cannula 2 Laboratory Results Laboratory Results WBC 7.74 K/ul (4.8-10.8) 12/29/21 06:52 RBC 4.21 M/uL (3.93-5.22) 12/29/21 06:52 Hgb 10.7 g/dl (12.0-16.0) L 12/29/21 06:52 Hct 33.0 % (34.1-44.9) L 12/29/21 06:52 MCV 78.4 fL (80.0-100.0) L 12/29/21 06:52 MCH 25.4 pg (25.0-34.0) 12/29/21 06:52 MCHC 32.4 g/dL (32.0-36.0) 12/29/21 06:52 RDW Std Deviation 43.8 fL (36.4-46.3) 12/29/21 06:52 RDW Coeff of Roni 16.0 % (11.5-14.5) H 12/29/21 06:52 Plt Count 294 K/uL (130-400) 12/29/21 06:52 MPV 12.2 fL (9.4-12.3) 12/29/21 06:52 Immature Gran % (Auto) 1.0 % 12/29/21 06:52 Neut % (Auto) 70.5 % 12/29/21 06:52 Lymph % (Auto) 22.4 % 12/29/21 06:52 [place] % (Auto) 5.6 % 12/29/21 06:52 Eos % (Auto) 0.4 % 12/29/21 06:52 Baso % (Auto) 0.1 % 12/29/21 06:52 Neut # (Auto) 5.46 K/uL (1.4-6.5) 12/29/21 06:52 Lymph # (Auto) 1.73 K/uL (1.2-3.4) 12/29/21 06:52 [place] # (Auto) 0.43 K/uL (0.24-0.82) 12/29/21 06:52 Eos # (Auto) 0.03 K/uL (0-0.50) 12/29/21 06:52 Baso # (Auto) 0.01 K/uL (0-0.2) 12/29/21 06:52 Immature Gran # (Auto) 0.08 K/uL (0.00-0.02) H 12/29/21 06:52 ESR 88 mm/hr (0-30) H 12/29/21 06:52 PT 12.6 Seconds (9.0-12.0) H 12/19/21 12:45 INR 1.2 (0.9-1.1) H 12/19/21 12:45 APTT 33.6 Seconds (21.0-31.0) H 12/19/21 12:45 PTT Ratio 1.2 12/19/21 12:45 Sodium 134 mmol/L (136-145) L 12/29/21 06:52 Potassium 4.0 mmol/L (3.5-5.1) 12/29/21 06:52 Chloride 102 mmol/L (98-107) 12/29/21 06:52 Carbon Dioxide 26 mmol/L (21-32) 12/29/21 06:52 Anion Gap 6 (3-11) 12/29/21 06:52 BUN 13 mg/dl (6-23) 12/29/21 06:52 Creatinine 0.69 mg/dl (0.6-1.2) 12/29/21 06:52 Est Cr Clr Drug Dosing 105.6 ml/min 12/29/21 06:52 Est GFR ( Amer) 105.9 ml/min 12/29/21 06:52 Est GFR (Non-Af Amer) 91.4 ml/min 12/29/21 06:52 BUN/Creatinine Ratio 18.8 (10-20) 12/29/21 06:52 Glucose 271 mg/dl (70-99(Fasting)) H 12/29/21 06:52 POC Glucose 272 mg/dl (70-99) H 12/29/21 07:40 Estimat Average Glucose 243 mg/dl 12/20/21 06:27 Hemoglobin A1c 10.1 % (4.5-5.6) H 12/20/21 06:27 Calcium 9.7 mg/dl (8.5-10.1) 12/29/21 06:52 Magnesium 1.6 mg/dl (1.7-2.4) L 12/23/21 05:58 Total Bilirubin 0.3 mg/dl (0.2-1.0) 12/29/21 06:52 AST 5 U/L (13-39) L 12/29/21 06:52 ALT 9 U/L (7-52) 12/29/21 06:52 Alkaline Phosphatase 76 U/L (34-104) 12/29/21 06:52 Troponin I High Sens 12.2 pg/ml (0-14) 12/19/21 12:45 C-Reactive Protein 2.00 mg/dl (0-0.5) H 12/29/21 06:52 Total Protein 7.0 gm/dl (6.0-8.3) 12/29/21 06:52 Albumin 3.3 gm/dl (3.4-5.0) L 12/29/21 06:52 Globulin 3.7 gm/dl (2.5-4.0) 12/29/21 06:52 Albumin/Globulin Ratio 0.9 (0.9-2) 12/29/21 06:52 Triglycerides 129 mg/dl (0-150) 12/20/21 06:27 Cholesterol 150 mg/dl (0-200) 12/20/21 06:27 LDL Cholesterol, Calc 102 mg/dl 12/20/21 06:27 VLDL Cholesterol, Calc 26 mg/dl (0-30) 12/20/21 06:27 HDL Cholesterol 22 mg/dl 12/20/21 06:27 Cholesterol/HDL Ratio 6.8 (0-5) H 12/20/21 06:27 Procalcitonin 0.78 ng/ml (0-0.5) H 12/19/21 12:45 TSH 0.341 uIu/ml (0.300-4.500) 12/20/21 06:27 Urine Color Dark Yellow 12/19/21 16:26 Urine Appearance Clear (Clear) 12/19/21 16:26 Urine pH 5.0 (4.5-7.5) 12/19/21 16:26 Ur Specific [place] 1.017 (1.000-1.030) 12/19/21 16:26 Urine Protein Trace (Negative) H 12/19/21 16:26 Urine Glucose (UA) Negative (Negative) 12/19/21 16:26 Urine Ketones Trace (Negative) H 12/19/21 16:26 Urine Blood Negative (Negative) 12/19/21 16:26 Urine Nitrite Negative (Negative) 12/19/21 16:26 Urine Bilirubin 1+ (Negative) H 12/19/21 16:26 Urine Urobilinogen Negative (Negative) 12/19/21 16:26 Ur Leukocyte Esterase Negative (Negative) 12/19/21 16:26 Urine WBC (Auto) 1-5 /hpf (0-5) 12/19/21 16:26 Urine RBC (Auto) 0-4 /hpf (0-4) 12/19/21 16:26 U Hyaline Cast (Auto) 10-30 /lpf (0-5) H 12/19/21 16:26 U Epithel Cells (Auto) >30 /lpf (0-5) H 12/19/21 16:26 Urine Bacteria (Auto) Negative (Negative) 12/19/21 16:26 Nasal Screen MRSA (PCR) Negative (Negative) 12/20/21 09:33 Random Vancomycin 30.9 mcg/ml (10-20) H* 12/24/21 05:27 SARS-CoV-2, RNA, NAAT NEGATIVE (NEGATIVE) 12/19/21 17:34 Impressions Chest X-Ray 12/19/21 12:33 XR chest 1V not portable CLINICAL HISTORY: Sepsis TECHNIQUE: Single frontal radiograph of the chest was obtained. Comparison: None available at the time of this dictation. FINDINGS: No lines and tubes are seen. The cardiomediastinal silhouette is normal. The lungs are clear. No evidence of pleural effusion or pneumothorax. IMPRESSION: No acute chest disease. ACT 112: Negative or not required by law. Electronically signed by: Juarez Doherty M.D. 12/19/2021 1:47 PM Abdomen/Pelvis CT 12/19/21 14:47 CT SCAN OF THE ABDOMEN AND PELVIS WITHOUT IV CONTRAST CLINICAL HISTORY: Upper abdominal pain. COMPARISON STUDY: No priors. TECHNIQUE: CT scan of the abdomen and pelvis is performed from the lung bases to the proximal femora. Images are reviewed in the axial, sagittal, and coronal planes. IV contrast was not administered for this examination. Note that the examination is suboptimal without oral and IV contrast. A dose lowering technique was utilized adhering to the principles of ALARA. CT DOSE: 1113.85 mGy.cm FINDINGS: Lung bases: The heart is normal in size and without pericardial effusion. The coronary arteries are densely calcified. There is a small to moderate hiatal hernia. There is an 11 mm lobulated pulmonary nodule at the right lung base seen on image #53. The lung bases are otherwise clear noting bibasilar scarring/atelectasis. Liver: The unenhanced liver is enlarged, measuring 19.5 cm in length. The liver is otherwise normal in contour and attenuation. There is no intrahepatic biliary ductal dilatation. Gallbladder: Unremarkable. Spleen: The spleen is mildly enlarged measuring 13.9 cm in length. Pancreas: The unenhanced pancreas is grossly unremarkable. Adrenal glands: Unremarkable. Kidneys: The unenhanced kidneys are normal in size and without hydronephrosis. There are no renal calculi identified. A 3.1 cm cyst is noted in the left lower pole. Abdominal vasculature: The abdominal aorta is normal in course and caliber notin g moderate to advanced atherosclerotic calcification. Bowel: There is no bowel obstruction. Mild fecal retention is seen throughout the colon. The appendix is well-visualized and normal. Peritoneum: There is no intraperitoneal free air or abdominal ascites. Lymphadenopathy: Prominent right inguinal lymph nodes measure up to 1.5 cm. These are likely reactive. Prominent right iliac chain nodes measure up to 10 mm in short axis. Pelvic viscera: The bladder is normal as visualized. The uterus is surgically absent. No adnexal lesion is seen. Skeletal structures: The skeletal structures are osteopenic. There is mild lumbosacral spondylosis and scoliosis. No lytic or blastic lesions are seen. IMPRESSION: 1. No acute infectious or inflammatory findings are identified in the abdomen or pelvis. 2. Mild hepatosplenomegaly. 3. There is a pathologically indeterminant 11 mm right lower lobe pulmonary nodule. A follow-up chest CT in 6 months time is recommended for reassessment a nd full evaluation of pneumothorax. 4. Hiatal hernia. 5. Additional findings as above. ACT 112: Positive. There are findings on this exam that require communication between the performing entity and the patient following Patient Test Result Information Act ([place] Act 112) guidelines. Electronically signed by: Kan Croft M.D. 12/19/2021 3:52 PM Foot X-Ray 12/19/21 14:47 XR foot LT min 3V routine CLINICAL HISTORY: plantar diabetic ulcer, ? osteo TECHNIQUE: 3 views of the left foot were obtained. Comparison: None available at the time of this dictation. FINDINGS: No evidence of bony erosion is seen. Extensive degenerative changes are seen. Soft tissue ulceration is seen in the plantar forefoot. IMPRESSION: Plantar ulcer is noted in the forefoot. No radiographic evidence of osteomyelitis. If clinical concern remains, MRI is a more sensitive modality. ACT 112: Negative or not required by law. Electronically signed by: Juarez Doherty M.D. 12/19/2021 3:53 PM Gallbladder Ultrasound 12/19/21 18:48 ULTRASOUND RIGHT UPPER QUADRANT ABDOMEN CLINICAL HISTORY: Right upper quadrant abdominal pain. Nausea. COMPARISON STUDY: Abdominal CT performed the same day 12/19/2021. TECHNIQUE: Real-time, grayscale, and color flow sonography of the right upper quadrant of the abdomen was performed. Images are reviewed in the transverse and longitudinal planes. FINDINGS: Liver: The liver is mildly enlarged. Echotexture is heterogeneous increased suggesting steatosis. There is no intrahepatic biliary ductal dilatation. The main portal vein is patent. Gallbladder: The gallbladder is normal in appearance. No gallstones are identified. There is no gallbladder wall thickening or pericholecystic fluid. A sonographic Coombs's sign is reportedly absent. The common bile duct measures up to 0.2 cm in diameter. Pancreas: Visualized portions of the pancreatic head and body are normal in appearance. Right kidney: Survey images of the right kidney demonstrate normal size and echotexture. There is no hydronephrosis. Ascites: None. IMPRESSION: 1 No acute sonographic abnormality is seen in the right upper quadrant. No gallstones are identified. 2. The liver is enlarged and mildly steatotic. ACT 112: Negative or not required by law. Electronically signed by: Kan Croft M.D. 12/19/2021 8:22 PM Foot MRI 12/21/21 06:13 MR foot RT wo/w con, MR foot LT wo/w con CLINICAL HISTORY: Eval for osteomyelitis TECHNIQUE: Multiplanar multisequence MR images of the bilateral foot were obtained without and with contrast. Comparison: Comparison is made to right foot radiograph 12/19/2021 FINDINGS: Exam is limited by patient motion. Right foot: Bone marrow edema is seen in the entire second metatarsal, as well as the mid to distal third metatarsal, second and third proximal phalanx, and second digit middle phalanx. There is diffuse soft tissue edema in the plantar surface of the foot and probably the second digit with involvement of the first and third digit as well. A soft tissue defect in the plantar foot is noted. No drainable fluid collection is seen. Left foot: Bone marrow edema is seen in the proximal phalanx of the second digit. Degenerative changes are seen with some edema in the first digit interphalangeal joint. Soft tissue swelling and plantar ulcer are seen. No drainable fluid collection. IMPRESSION: 1. Osteomyelitis and cellulitis are seen in the right greater than left feet. No drainable fluid collections are seen. In the right foot, there is involvement of the second and third metatarsals, second and third proximal phalanges, and second digit middle phalanx. 2. Degenerative changes are seen in the bilateral feet. ACT 112: Negative or not required by law. Electronically signed by: Juarez Doherty M.D. 12/21/2021 2:45 PM Brain MRI 12/21/21 12:53 MRI OF THE BRAIN WITHOUT AND WITH IV CONTRAST CLINICAL HISTORY: Meningioma. COMPARISON STUDY: None available at time of interpretation. TECHNIQUE: Utilizing a 1.5 [place]le magnet and dedicated coil, multiplanar, multiecho imaging of the brain was performed pre and postcontrast administration. IV administration of Gadavist contrast was uneventful. Thin cut T1 post contrast imaging was performed. FINDINGS: There are no foci of restricted diffusion to suggest acute infarct. No acute intracranial hemorrhage, midline shift or mass effect is present. Ventricular system is unremarkable. Basal cisterns are patent. There are no extra-axial collections. Flow-voids for the major intracranial vessels are present. Note is made of an enhancing 1.4 x 1.2 x 1.5 cm extra-axial lesion overlying the anterior medial left frontal lobe. There is mild associated dural thickening. No additional intracranial masses are present. White matter T2 hyperintense foci favor small vessel disease. No suspicious calvarial marrow replacement is present. Orbits are unremarkable. There is no evidence for sinusitis. IMPRESSION: 1. No acute intracranial findings. 2. 1.5 cm extra-axial enhancing lesion overlying the anterior medial left frontal lobe. This is suggestive of a meningioma. Comparison with prior imaging studies, if available, is recommended. In the absence of prior studies, a follow-up MRI of the brain in 6 months is recommended. ACT 112: Negative or not required by law. Electronically signed by: Trever Sanchez M.D. 12/21/2021 2:44 PM
[2021-12-29] MEDS: LANTUS PER UNIT CHARGE SQ SCH (21:56)
[2021-12-29] MEDS: ATORVASTATIN 20 MG TAB PO SCH (22:24)
[2021-12-30] MEDS: LEVOTHYROXINE SODIUM 100 MCG TABLET PO SCH (05:47)
[2021-12-30] MEDS: HEPARIN SOD 5,000 UNIT/0.5 ML VIAL SQ SCH ×3 (05:47→23:06)
[2021-12-30 08:26] LABS: Basophils # (auto) 0.03 K/uL (0-0.2); Basophils % (auto) 0.3 %; Eosinophils % (auto) 1.1 %; Hematocrit (blood only) 34.2 % (34.1-44.9); Hemoglobin 10.9 g/dl (12.0-16.0); Immature Granulocytes # (auto) 0.07 K/uL (0.00-0.02); Immature Granulocytes % (auto) 0.8 %; Lymphocytes # (auto) 2.93 K/uL (1.2-3.4); Lymphocytes % (auto) 33.4 %; Mean Corpuscular Hemoglobin 25.3 pg (25.0-34.0); Mean Corpuscular Hgb Conc 31.9 g/dL (32.0-36.0); Mean Corpuscular Volume 79.5 fL (80.0-100.0); Mean Platelet Volume 12.3 fL (9.4-12.3); Monocytes # (auto) 0.56 K/uL (0.24-0.82); Monocytes % (auto) 6.4 %; Neutrophils # (auto) 5.08 K/uL (1.4-6.5); Platelet Count 314 K/uL (130-400); RDW Coefficient of Variation 16.3 % (11.5-14.5); RDW Standard Deviation 44.7 fL (36.4-46.3); White Blood Count 8.77 K/ul (4.8-10.8)
[2021-12-30] MEDS: LANTUS PER UNIT CHARGE SQ SCH ×2 (08:53→23:07)
[2021-12-30] MEDS: INSULIN ASPART PER UNIT SC SCH ×3 (08:53→17:41)
[2021-12-30 08:57] LABS: BUN Creatinine Ratio 23.2 (10-20); Creatinine Clr Calc Pharmacy 105.6 ml/min; Est GFR (African American) 105.9 ml/min; Est GFR (Non-African American) 91.4 ml/min; Potassium 4.5 mmol/L (3.5-5.1)
[2021-12-30] MEDS: POTASSIUM CHLORIDE CRTAB 20 MEQ TABCR PO SCH ×2 (09:34→23:06)
[2021-12-30] MEDS: CEFDINIR 300 MG CAP PO SCH ×2 (09:34→23:06)
[2021-12-30] MEDS: DOXYCYCLINE HYCLATE 100 MG CAP PO SCH ×2 (09:34→23:06)
[2021-12-30] MEDS: FLUoxetine HCL 20 MG CAP PO SCH (09:35)
[2021-12-30] MEDS: DOCUSATE SODIUM/SENNA 50/8.6MG TAB PO SCH (09:35)
[2021-12-30] MEDS: CHLORTHALIDONE 25 MG TAB PO SCH (09:35)
[2021-12-30] MEDS: ASPIRIN 81 MG ECTAB PO SCH (09:35)
[2021-12-30] MEDS: PANTOprazole 40 MG TAB PO SCH (09:35)
[2021-12-30] MEDS: CHOLECALCIFEROL 1,000 UNITS 25 MCG TAB PO SCH (09:35)
[2021-12-30] MEDS: dilTIAZem HCL 180 MG CAPCR PO SCH (09:35)
[2021-12-30] MEDS: NYSTATIN/TRIAMCIN CR 15 GM TUBE EXT SCH ×2 (10:26→23:07)
[2021-12-30] MEDS: ACETAMINOPHEN 500 MG TAB PO PRN (10:43)
--- NOTE | 2021-12-30 16:46 | Hospitalist Progress Note ---
Date of Service December 30, 2021 Assessment & Plan (1) Diabetic foot infection: Plan 66-year-old lady with PMH of T2DM, diabetic neuropathy, diabetic foot ulcers for which she follows with wound clinic for many months, Pito's, Hawley's esophagus, brain meningioma presented to the ED 12/19 as bilateral foot also had foul smell associated with increased redness and swelling. She is being managed for the following: Right and left foot osteomyelitis-POA Infected Bilateral diabetic foot ulcers s/p Right 2nd Ray Amputation, Right 3rd Metatarsal and Left 2nd Metatarsal with Application of Bilateral Wound Vacs(Bilateral) on 12/26/2021 Hx of Diabetic foot for last 2 years. --MRI foot:Osteomyelitis and cellulitis are seen in the right greater than left feet. No drainable fluid collections are seen. In the right foot, there is involvement of the second and third metatarsals, second and third proximal phalanges, and second digit middle phalanx. Degenerative changes are seen in the bilateral feet. --Blood Culture no growth. --Wound Culture MRSA, staph species, group B beta strep -- was empirically started on Vanco, cefepime, Flagyl initially ---> then changed to cefdinir and doxy w/ ID recs (since surgery was not contemplated, Atb until seen by ortho as OP). -- 12/26 s/p Right 2nd Ray Amputation, Right 3rd Metatarsal and Left 2nd Metatarsal with Application of Bilateral Wound Vacs(Bilateral) - Tim Phillip, DPM, MS -- 12/26 operative Cx: low counts mixed probable skin microbiota. -- 12/26 Pathology report: Rt 3rd and left 2nd metatarsal phalangeal joint w/ no changes of OM, Rt 2nd toe "right second ray amputation" w/ severe chronic active OM w/ necrotic bony trabeculae. Plan: Patient is presently on cefdinir and doxycycline based on the superficial wound culture done at admission. D/w chief recordist, will probably need prolonged IV atb per ID recs. Will have to ?? wait until Saturday for ID, then will decide on further PICC/IV therpay vs oral therapy. Continue would care with wound VAC. (3) DM II (diabetes mellitus, type II), controlled: Plan: -Uncontrolled -On glipizide, metformin and Trulicity at home Non complaint with medications HbA1c 10.1 --Usually blood glucose is in the 300s-400s as per daughter -ISS, Lantus while hospitalized, glycemic pharmacy on board. -electron beam welder setter consulted (4) Nausea & vomiting: Plan: --CT ABD:No acute infectious or inflammatory findings are identified in the abdomen or pelvis. Mild hepatosplenomegaly. Hiatal hernia. --Gall Bladder USD:No acute sonographic abnormality is seen in the right upper quadrant. No gallstones are identified. The liver is enlarged and mildly steatotic. -- Currently no issues Monitor Right lower lobe pulmonary nodule--chronic Patient aware of Pulm nodule H/O Tobacco use --CT showed: Pathologically indeterminant 11 mm right lower lobe pulmonary nodule. A follow-up chest CT in 6 months time is recommended for reassessment and full evaluation --Advised to follow up as outpatient and CT chest in 6 months. Meningioma Previously followed with neurology --MRI Brain: No acute intracranial findings. 1.5 cm extra-axial enhancing lesion overlying the anterior medial left frontal lobe. This is suggestive of a meningioma. Comparison with prior imaging studies, if available, is recommended. In the absence of prior studies, a follow-up MRI of the brain in 6 months is recommended. -- Advised to follow-up with neurosurgery as outpatient Hyponatremia: Mild, likely due to dehydration, resolved. Monitor. Other electrolyte abnormalities: Monitor and replete as appropriate. Other chronic medical conditions: Pito's/HTN -->> continue with/resume home meds as and when appropriate. DVT prophylaxis: Heparin subcu CODE STATUS: Full code Dispo: PT/OT, to OR today. CM to assist with DC planning. Family Contact: Nathalie Brionna Contact Number:[phone] Dispo: pending operative C/S result, atb finalization w/ id and w/ podiatry recs. Admission and Anticipated Discharge Date Admission Date: December 19, 2021 Subjective Patient seen and examined at bedside as a follow-up of bilateral foot osteomyelitis and infected bilateral diabetic foot ulcers and uncontrolled DM 2. Patient was sitting up in bed, on room air, NAD, denies any new acute event overnight, reports pain under control b/l feet, reports eating ok and moving bowels ok. Patient denies any pain or discomfort.Reports feeling tired today. Patient denies any headache/dizziness/fever/chills/chest pain/palpitations/other review of symptoms. Physical Exam Physical Exam: GENERAL: Alert and oriented x3. NAD, on RA. Class I obese. HEENT: No pallor, no icterus. Pupils equal, round and reactive to light. Oral mucosa moist. NECK: No JVD, no neck masses. HEART: S1 and S2 heard. Regular rate and rhythm. No murmur, no gallop. RESPIRATORY SYSTEM: Normal AP diameter. No accessory muscle use. No wheezing, no crackles. ABDOMEN: Soft, bowel sounds present, nontender, no distention. CENTRAL NERVOUS SYSTEM: No facial droop. Speech is clear. Obeys simple commands. Moves extremities. EXTREMITIES: No edema, no erythema seen. b/l foot w/ wound vac, c/d/i. Rt 2nd toe amputation noted. Results & Data Results & Data ([facility]) Vital Signs (Past 12 Hours) Vital Signs Temp Pulse Pulse Resp BP Pulse Ox O2 Del Method 12/30/21 09:00 Room Air 12/30/21 08:00 12/30/21 15:10 36.8 C 59 L 18 119/75 93 Room Air 12/30/21 11:05 36.9 C 64 20 133/78 94 Room Air 12/30/21 07:34 56 L 12/30/21 07:27 36.5 C 62 18 144/85 H 92 Room Air O2 Del Method 12/30/21 09:00 12/30/21 08:00 Room Air 12/30/21 15:10 12/30/21 11:05 12/30/21 07:34 12/30/21 07:27
--- NOTE | 2021-12-30 20:23 | Orthopedic Progress Note ---
Date of Service December 30, 2021 Assessment & Plan (1) Diabetic foot ulcers: Plan: Patient seen, evaluated, and treated. Reviewed plan for Patient to be discharged to SNF. Patient consents to SNF. Recommend ID consult for Abx discharge. Unclear if clear margins of right second metatarsal obtained. Would recommend 6 weeks IV abx then evaluate labs for possible continuation. Patient is non weight bearing. Wound vac changes M, W, F. Thank you for allowing me to participate in the care of this Patient. (2) Diabetic foot infection: (3) DM II (diabetes mellitus, type II), controlled: Admission and Anticipated Discharge Date Admission Date: December 19, 2021 Subjective Patient seen at bedside status post Day #4 right and left foot surgery. She is resting comfortably. Patient states she has been very tired recently. She has no other complaints. Physical Exam Physical Exam: Right and Left foot wound vacs intact running 125mmHg as Rx'd. Results & Data ([facility]) Vital Signs (Past 12 Hours) Vital Signs Temp Pulse Pulse Resp BP Pulse Ox O2 Del Method 12/30/21 19:32 36.7 C 57 L 18 114/70 94 Room Air 12/30/21 17:02 58 L 12/30/21 09:00 Room Air 12/30/21 15:10 36.8 C 59 L 18 119/75 93 Room Air 12/30/21 11:05 36.9 C 64 20 133/78 94 Room Air Diagnostic Findings Surface Wound Culture Final 12/23/21 Organism 1 Staph aureus MRSA Quantity Few Sens Sensitivities to Follow +MixWound Plus Low Counts of Probable Skin Erika Organism 2 Staphylococcus aureus Quantity Rare Sens Sensitivities to Follow MRSA S aureus RX M.I.C. RX M.I.C. --- --------- --- --------- Clindamycin R >4 R <=0.5 Daptomycin S <=0.5 S 1 Erythromycin R >4 R >4 Oxacillin R >2 S 0.5 Rifampin S <=1 Tetracycline S <=4 S <=4 Trimeth/Sulfa S <=0.5/9.5 S <=0.5/9.5 Vancomycin S 2 S 2 S = SENSITIVE I = INTERMEDIATE R = RESISTANT Surface Wound Culture Final 12/23/21 Organism 1 Group B Beta Strep Quantity Rare Sens Sensitivities to Follow +MixWound Plus Low Counts of Probable Skin Erika Grp.B Strp RX M.I.C. --- --------- Ampicillin S 0.12 Azithromycin R >2 Cefepime S <=0.25 Cefotaxime S <=0.25 Ceftriaxone S <=0.25 Chloramphenicol S 2 Erythromycin R >0.5 Penicillin S 0.06 Vancomycin S 0.5 S = SENSITIVE I = INTERMEDIATE R = RESISTANT FINAL DIAGNOSIS A. Bone and synovium, right third metatarsal phalangeal joint (resection): - The synovial tissue reveals moderate chronic active synovitis. - The changes of crystal deposition disease are not seen. - Samples of the articular bone reveal an intact articular surface with overlying cartilage, underlying viable bony trabeculae, and focal new bone formation. - The changes of osteomyelitis are not seen. B. Skin, bone and synovium, left second metatarsal phalangeal joint (resection): - The attached synovium reveals mild chronic synovitis. - The changes of crystal deposition disease are not seen. - Samples of the articular bone reveal viable articular bone, viable underlying bony trabeculae and strips of attached inflamed synovial tissue. - The changes of osteomyelitis are not seen. - The fragment of skin reveals an ulcer with fibrinopurulent exudate. C. Toe, right second, "right second ray" (right second ray amputation): - The skin reveals an ulcer with fibrinopurulent exudate. - The attached synovium reveal severe chronic active synovitis. - The bony tissue reveals severe chronic active osteomyelitis with necrotic bony trabeculae easily noted. - The clinical history of a diabetic foot infection is noted. at 1550.
[2021-12-30] MEDS: ATORVASTATIN 20 MG TAB PO SCH (23:06)
[2021-12-31] MEDS: INSULIN ASPART PER UNIT SC SCH ×5 (00:34→21:48)
[2021-12-31] MEDS: HEPARIN SOD 5,000 UNIT/0.5 ML VIAL SQ SCH ×3 (05:39→21:46)
[2021-12-31] MEDS: LEVOTHYROXINE SODIUM 175 MCG TABLET PO SCH (05:39)
[2021-12-31] MEDS: LANTUS PER UNIT CHARGE SQ SCH ×2 (09:14→21:47)
[2021-12-31] MEDS: dilTIAZem HCL 180 MG CAPCR PO SCH ×2 (09:16→09:29)
[2021-12-31] MEDS: PANTOprazole 40 MG TAB PO SCH (09:16)
[2021-12-31] MEDS: DOXYCYCLINE HYCLATE 100 MG CAP PO SCH ×2 (09:16→21:47)
[2021-12-31] MEDS: CEFDINIR 300 MG CAP PO SCH ×2 (09:16→21:46)
[2021-12-31] MEDS: POTASSIUM CHLORIDE CRTAB 20 MEQ TABCR PO SCH ×2 (09:16→21:46)
[2021-12-31] MEDS: CHOLECALCIFEROL 1,000 UNITS 25 MCG TAB PO SCH (09:17)
[2021-12-31] MEDS: FLUoxetine HCL 20 MG CAP PO SCH (09:17)
[2021-12-31] MEDS: CHLORTHALIDONE 25 MG TAB PO SCH (09:17)
[2021-12-31] MEDS: ASPIRIN 81 MG ECTAB PO SCH (09:17)
[2021-12-31] MEDS: DOCUSATE SODIUM/SENNA 50/8.6MG TAB PO SCH (09:18)
[2021-12-31] MEDS: NYSTATIN/TRIAMCIN CR 15 GM TUBE EXT SCH ×2 (09:20→21:40)
[2021-12-31] MEDS: ACETAMINOPHEN 500 MG TAB PO PRN (09:42)
--- NOTE | 2021-12-31 13:27 | Hospitalist Progress Note ---
Date of Service December 31, 2021 Assessment & Plan (1) Diabetic foot infection: Plan 66-year-old lady with PMH of T2DM, diabetic neuropathy, diabetic foot ulcers for which she follows with wound clinic for many months, Pito's, Hawley's esophagus, brain meningioma presented to the ED 12/19 as bilateral foot also had foul smell associated with increased redness and swelling. She is being managed for the following: Right and left foot osteomyelitis-POA Infected Bilateral diabetic foot ulcers s/p Right 2nd Ray Amputation, Right 3rd Metatarsal and Left 2nd Metatarsal with Application of Bilateral Wound Vacs(Bilateral) on 12/26/2021 Hx of Diabetic foot for last 2 years. --MRI foot:Osteomyelitis and cellulitis are seen in the right greater than left feet. No drainable fluid collections are seen. In the right foot, there is involvement of the second and third metatarsals, second and third proximal phalanges, and second digit middle phalanx. Degenerative changes are seen in the bilateral feet. --Blood Culture no growth. --Wound Culture MRSA, staph species, group B beta strep -- was empirically started on Vanco, cefepime, Flagyl initially ---> then changed to cefdinir and doxy w/ ID recs (since surgery was not contemplated, plan was Atb until seen by ortho as OP). -- 12/26 s/p Right 2nd Ray Amputation, Right 3rd Metatarsal and Left 2nd Metatarsal with Application of Bilateral Wound Vacs(Bilateral) - Tim Phillip, MILA, MS -- 12/26 operative Cx: low counts mixed probable skin microbiota. -- 12/26 Pathology report: Rt 3rd and left 2nd metatarsal phalangeal joint w/ no changes of OM, Rt 2nd toe "right second ray amputation" w/ severe chronic active OM w/ necrotic bony trabeculae. Plan: Patient is presently on cefdinir and doxycycline based on the superficial wound culture done at admission. D/w health services administrator 12/30, will probably need prolonged IV atb per ID recs. Will have to ?? wait until Saturday for ID, then will decide on further PICC/IV therpay vs oral therapy. Continue would care with wound VAC. (3) DM II (diabetes mellitus, type II), controlled: Plan: -Uncontrolled -On glipizide, metformin and Trulicity at home Non complaint with medications HbA1c 10.1 --Usually blood glucose is in the 300s-400s as per daughter -ISS, Lantus while hospitalized, glycemic pharmacy on board. -hospice educator consulted (4) Nausea & vomiting: Plan: --CT ABD:No acute infectious or inflammatory findings are identified in the abdomen or pelvis. Mild hepatosplenomegaly. Hiatal hernia. --Gall Bladder USD:No acute sonographic abnormality is seen in the right upper quadrant. No gallstones are identified. The liver is enlarged and mildly steatotic. -- Currently no issues Monitor Right lower lobe pulmonary nodule--chronic Patient aware of Pulm nodule H/O Tobacco use --CT showed: Pathologically indeterminant 11 mm right lower lobe pulmonary nodule. A follow-up chest CT in 6 months time is recommended for reassessment and full evaluation --Advised to follow up as outpatient and CT chest in 6 months. Meningioma Previously followed with neurology --MRI Brain: No acute intracranial findings. 1.5 cm extra-axial enhancing lesion overlying the anterior medial left frontal lobe. This is suggestive of a meningioma. Comparison with prior imaging studies, if available, is recommended. In the absence of prior studies, a follow-up MRI of the brain in 6 months is recommended. -- Advised to follow-up with neurosurgery as outpatient Hyponatremia: Mild, likely due to dehydration, resolved. Monitor. Other electrolyte abnormalities: Monitor and replete as appropriate. Other chronic medical conditions: Pito's/HTN -->> continue with/resume home meds as and when appropriate. DVT prophylaxis: Heparin subcu CODE STATUS: Full code Dispo: PT/OT, to OR today. CM to assist with DC planning. Family Contact: Nathaliemarissa Staton Contact Number:[phone] Dispo: pending atb finalization w/ id and w/ podiatry recs. Continue to follow final C/s report. Admission and Anticipated Discharge Date Admission Date: December 19, 2021 Subjective Patient seen and examined at bedside as a follow-up of bilateral foot osteomyelitis and infected bilateral diabetic foot ulcers and uncontrolled DM 2. Patient was sitting up in bed, on room air, NAD, denies any new acute event overnight, reports pain under control b/l feet, reports eating ok and moving bowels ok. Patient denies any pain or discomfort.Reports feeling tired again today but somewhat better. Patient denies any headache/dizziness/fever/chills/chest pain/palpitations/other review of symptoms. Physical Exam Physical Exam: GENERAL: Alert and oriented x3. NAD, on RA. Class I obese. HEENT: No pallor, no icterus. Pupils equal, round and reactive to light. Oral mucosa moist. NECK: No JVD, no neck masses. HEART: S1 and S2 heard. Regular rate and rhythm. No murmur, no gallop. RESPIRATORY SYSTEM: Normal AP diameter. No accessory muscle use. No wheezing, no crackles. ABDOMEN: Soft, bowel sounds present, nontender, no distention. CENTRAL NERVOUS SYSTEM: No facial droop. Speech is clear. Obeys simple commands. Moves extremities. EXTREMITIES: No edema, no erythema seen. b/l foot w/ wound vac, c/d/i. Rt 2nd toe amputation noted. Results & Data Results & Data ([facility] [place]) Vital Signs (Past 12 Hours) Vital Signs Temp Pulse Pulse Resp BP BP Pulse Ox 12/31/21 10:42 36.5 C 68 20 113/74 98 12/31/21 07:22 36.5 C 52 L 18 143/84 H 94 12/31/21 07:21 53 L 12/31/21 03:16 36.6 C 61 18 136/79 94 O2 Del Method 12/31/21 10:42 Room Air 12/31/21 07:22 Room Air 12/31/21 07:21 12/31/21 03:16 Room Air
--- NOTE | 2021-12-31 13:46 | Pharmacy Report ---
Pharmacy Glycemic Short Note 2 - Date of Service December 31, 2021 - Glycemic Short BSG Results (Last 24 hours): 12/30/21 12/30/21 12/31/21 16:36 20:26 07:51 Glucose POC Glucose 113 H 104 H 163 H 12/31/21 12/31/21 12/31/21 11:27 11:28 11:32 Glucose POC Glucose 324 H* 278 H 242 H 12/31/21 12:24 Glucose 192 H POC Glucose OUTPATIENT ANTIDIABETIC REGIMEN: * Metformin 1gm PO BID * Glipizide 10mg PO BID * Trulicity 1.5mg SQ weekly HbA1c: 10.1% (12/20/21) ASSESSMENT: 12/31/21: * BSG trend noted over past 2 days, peaking at lunchtime with significant improvement at dinner/HS last evening * Will tighten Novolog for tomorrow morning and plan to loosen slightly at lunch, dinner, HS * Lantus increased to 30 units BID yesterday, will continue (fasting BSG improved from 186 to 163 mg/dL) 12/29/21: * Despite aggressive insulin regimen, majority of BSGs remain >180mg/dL. * Lantus dose increased slightly again this morning. Will continue to titrate. * Novolog parameters tightened further, in an attempt for better control throughout the day. 12/27 * Patient received 44 units yesterday of which 29 were basal. Patient was NPO due to procedure for most of the day until returning from procedure late in the evening. * Per Nurse, patient had been eating overnight and no insulin coverage was given. * Blood sugar this morning was 389, repeat POC 409. Increased AM lantus to 25 units and gave 8 units IV insulin with lunch. 12/22 * Ms Staton is a 66yo diabetic F admitted with b/l foot cellulitis/osteomyelitis. * She has some DM med compliance issues (see CDE note for more details as well as discharge recommendations). * Pt has been hyperglycemic during admission. Pharmacy consulted this afternoon to aid with glycemic mgmt. * Lantus increased beginning this evening for fasting BSG above goal. * Novolog parameters adjusted to provide additional carb coverage for better control throughout the day. * Pt is receiving vancomycin, metronidazole, and cefepime. * Will target strict glycemic control in the setting of infection. PLAN FOR INPATIENT GLYCEMIC CONTROL: * Hold outpatient oral diabetes medications * Basal insulin * Lantus 30 units SQ BID * Bolus insulin * NovoLog per scale ACHS or Q6hrs while NPO * Goal Range: Low 110 mg/dL - High 140 mg/dL * Correction Factor: 10 mg/dL/unit at breakfast, 12 mg/dL/unit at lunch, dinner, HS * Nutritional / Prandial insulin per carb ratio of 1 unit per 3 grams CHO consumed with breakfast and 1 unit per 4 grams CHO consumed with lunch, dinner, HS
[2021-12-31] MEDS: ATORVASTATIN 20 MG TAB PO SCH (21:47)
[2022-01-01] MEDS: HEPARIN SOD 5,000 UNIT/0.5 ML VIAL SQ SCH ×3 (05:31→20:03)
[2022-01-01] MEDS: LEVOTHYROXINE SODIUM 175 MCG TABLET PO SCH (05:31)
[2022-01-01 07:57] LABS: Hematocrit (blood only) 36.8 % (34.1-44.9); Mean Corpuscular Hgb Conc 32.6 g/dL (32.0-36.0); Mean Corpuscular Volume 79.7 fL (80.0-100.0); Mean Platelet Volume 12.2 fL (9.4-12.3); Platelet Count 291 K/uL (130-400); RDW Coefficient of Variation 16.6 % (11.5-14.5); RDW Standard Deviation 45.6 fL (36.4-46.3); Red Blood Count 4.62 M/uL (3.93-5.22); White Blood Count 9.16 K/ul (4.8-10.8)
[2022-01-01] MEDS: CHOLECALCIFEROL 1,000 UNITS 25 MCG TAB PO SCH (08:12)
[2022-01-01] MEDS: PANTOprazole 40 MG TAB PO SCH (08:12)
[2022-01-01] MEDS: NYSTATIN/TRIAMCIN CR 15 GM TUBE EXT SCH ×2 (08:12→20:02)
[2022-01-01] MEDS: ASPIRIN 81 MG ECTAB PO SCH (08:12)
[2022-01-01] MEDS: CEFDINIR 300 MG CAP PO SCH ×2 (08:13→19:58)
[2022-01-01] MEDS: dilTIAZem HCL 180 MG CAPCR PO SCH (08:13)
[2022-01-01] MEDS: CHLORTHALIDONE 25 MG TAB PO SCH (08:13)
[2022-01-01] MEDS: DOXYCYCLINE HYCLATE 100 MG CAP PO SCH ×2 (08:13→20:00)
[2022-01-01] MEDS: POTASSIUM CHLORIDE CRTAB 20 MEQ TABCR PO SCH ×2 (08:13→20:00)
[2022-01-01] MEDS: FLUoxetine HCL 20 MG CAP PO SCH (08:13)
[2022-01-01] MEDS: INSULIN ASPART PER UNIT SC SCH ×4 (08:14→19:57)
[2022-01-01 08:16] LABS: BUN Creatinine Ratio 28.2 (10-20); Calcium 9.8 mg/dl (8.5-10.1); Creatinine Clr Calc Pharmacy 91.4 ml/min; Est GFR (African American) 92.5 ml/min; Est GFR (Non-African American) 79.8 ml/min; Magnesium 1.6 mg/dl (1.7-2.4); Potassium 4.2 mmol/L (3.5-5.1)
[2022-01-01] MEDS: LANTUS PER UNIT CHARGE SQ SCH ×2 (08:23→19:57)
[2022-01-01] MEDS: DOCUSATE SODIUM/SENNA 50/8.6MG TAB PO SCH (08:24)
[2022-01-01] MEDS ORDERED: LOPERAMIDE HCL 2 MG CAP PO STA (15:41)
--- NOTE | 2022-01-01 16:37 | Hospitalist Progress Note ---
Date of Service January 01, 2022 Assessment & Plan (1) Diabetic foot infection: Plan 66-year-old lady with PMH of T2DM, diabetic neuropathy, diabetic foot ulcers for which she follows with wound clinic for many months, Pito's, Hawley's esophagus, brain meningioma presented to the ED 12/19 as bilateral foot also had foul smell associated with increased redness and swelling. She is being managed for the following: Right and left foot osteomyelitis-POA Infected Bilateral diabetic foot ulcers s/p Right 2nd Ray Amputation, Right 3rd Metatarsal and Left 2nd Metatarsal with Application of Bilateral Wound Vacs(Bilateral) on 12/26/2021 Hx of Diabetic foot for last 2 years. --MRI foot:Osteomyelitis and cellulitis are seen in the right greater than left feet. No drainable fluid collections are seen. In the right foot, there is involvement of the second and third metatarsals, second and third proximal phalanges, and second digit middle phalanx. Degenerative changes are seen in the bilateral feet. --Blood Culture no growth. --Wound Culture MRSA, staph species, group B beta strep -- was empirically started on Vanco, cefepime, Flagyl initially ---> then changed to cefdinir and doxy w/ ID recs (since surgery was not contemplated, plan was Atb until seen by ortho as OP). -- 12/26 s/p Right 2nd Ray Amputation, Right 3rd Metatarsal and Left 2nd Metatarsal with Application of Bilateral Wound Vacs(Bilateral) - Tim Phillip, JAYASHREEM, MS -- 12/26 operative Cx: low counts mixed probable skin microbiota. -- 12/26 Pathology report: Rt 3rd and left 2nd metatarsal phalangeal joint w/ no changes of OM, Rt 2nd toe "right second ray amputation" w/ severe chronic active OM w/ necrotic bony trabeculae. Plan: Patient is presently on cefdinir and doxycycline based on the superficial wound culture done at admission. D/w quality assurance clerk 12/30, will probably need prolonged IV atb per ID recs. Reached out to ID w/ new updates on 01/01 via TT in early and late AM, will follow again if no reply by today. Continue would care with wound VAC. (3) DM II (diabetes mellitus, type II), controlled: Plan: -Uncontrolled -On glipizide, metformin and Trulicity at home Non complaint with medications HbA1c 10.1 --Usually blood glucose is in the 300s-400s as per daughter -ISS, Lantus while hospitalized, glycemic pharmacy on board. -hematology nurse educator consulted (4) Nausea & vomiting: Plan: --CT ABD:No acute infectious or inflammatory findings are identified in the a bdomen or pelvis. Mild hepatosplenomegaly. Hiatal hernia. --Gall Bladder USD:No acute sonographic abnormality is seen in the right upper quadrant. No gallstones are identified. The liver is enlarged and mildly steatotic. -- Currently no issues Monitor Right lower lobe pulmonary nodule--chronic Patient aware of Pulm nodule H/O Tobacco use --CT showed: Pathologically indeterminant 11 mm right lower lobe pulmonary nodule. A follow-up chest CT in 6 months time is recommended for reassessment and full evaluation --Advised to follow up as outpatient and CT chest in 6 months. Meningioma Previously followed with neurology --MRI Brain: No acute intracranial findings. 1.5 cm extra-axial enhancing lesion overlying the anterior medial left frontal lobe. This is suggestive of a meningioma. Comparison with prior imaging studies, if available, is recommended. In the absence of prior studies, a follow-up MRI of the brain in 6 months is recommended. -- Advised to follow-up with neurosurgery as outpatient Hyponatremia: Mild, likely due to dehydration, resolved. Monitor. Other electrolyte abnormalities: Monitor and replete as appropriate. Other chronic medical conditions: Pito's/HTN -->> continue with/resume home meds as and when appropriate. DVT prophylaxis: Heparin subcu CODE STATUS: Full code Dispo: PT/OT, to OR today. CM to assist with DC planning. Family Contact: Nathalie Staton Contact Number:[phone] Dispo: pending atb finalization w/ id and w/ podiatry recs. Pending ID reply. Admission and Anticipated Discharge Date Admission Date: December 19, 2021 Subjective Patient seen and examined at bedside as a follow-up of bilateral foot osteomyelitis and infected bilateral diabetic foot ulcers and uncontrolled DM 2. Patient was sitting up in bed, on room air, NAD, denies any new acute event overnight, reports pain under control b/l feet, reports eating ok and having loose bowels, will hold laxative. Patient denies any pain or discomfort.Patient denies any headache/dizziness/fever/chills/chest pain/palpitations/other review of symptoms. Physical Exam Physical Exam: GENERAL: Alert and oriented x3. NAD, on RA. Class I obese. HEENT: No pallor, no icterus. Pupils equal, round and reactive to light. Oral mucosa moist. NECK: No JVD, no neck masses. HEART: S1 and S2 heard. Regular rate and rhythm. No murmur, no gallop. RESPIRATORY SYSTEM: Normal AP diameter. No accessory muscle use. No wheezing, no crackles. ABDOMEN: Soft, bowel sounds present, nontender, no distention. CENTRAL NERVOUS SYSTEM: No facial droop. Speech is clear. Obeys simple commands. Moves extremities. EXTREMITIES: No edema, no erythema seen. b/l foot w/ wound vac, c/d/i. Rt 2nd toe amputation noted. Results & Data Results & Data ([facility]) Vital Signs (Past 12 Hours) Vital Signs Temp Pulse Resp BP Pulse Ox O2 Del Method 01/01/22 16:11 36.6 C 57 L 16 105/85 94 Room Air 01/01/22 07:22 36.5 C 67 18 112/78 95 Room Air
[2022-01-01] MEDS: ADVANCED PROBIOTIC 1250 MG CAPSULE PO SCH (17:03)
[2022-01-01] MEDS: MAGNESIUM SULFATE / D5W 1 GM/100 ML BAG IV SCH ×2 (17:37→19:52)
[2022-01-01] MEDS: ATORVASTATIN 20 MG TAB PO SCH (19:59)
[2022-01-02] MEDS ORDERED: VANCOMYCIN HCL 1,750 MG in SODIUM CHLORIDE 0.9% 500 ML IV SCH
[2022-01-02] MEDS: LEVOTHYROXINE SODIUM 175 MCG TABLET PO SCH (06:12)
[2022-01-02] MEDS: HEPARIN SOD 5,000 UNIT/0.5 ML VIAL SQ SCH ×3 (06:13→22:17)
[2022-01-02] MEDS: INSULIN ASPART PER UNIT SC SCH ×4 (08:26→22:14)
[2022-01-02] MEDS: LANTUS PER UNIT CHARGE SQ SCH ×2 (08:27→22:14)
[2022-01-02] MEDS: NYSTATIN/TRIAMCIN CR 15 GM TUBE EXT SCH ×2 (08:27→22:16)
[2022-01-02] MEDS: FLUoxetine HCL 20 MG CAP PO SCH (08:30)
[2022-01-02] MEDS: ASPIRIN 81 MG ECTAB PO SCH (08:30)
[2022-01-02] MEDS: CHOLECALCIFEROL 1,000 UNITS 25 MCG TAB PO SCH (08:31)
[2022-01-02] MEDS: DOXYCYCLINE HYCLATE 100 MG CAP PO SCH (08:31)
[2022-01-02] MEDS: dilTIAZem HCL 180 MG CAPCR PO SCH (08:31)
[2022-01-02] MEDS: CHLORTHALIDONE 25 MG TAB PO SCH (08:31)
[2022-01-02] MEDS: PANTOprazole 40 MG TAB PO SCH (08:31)
[2022-01-02] MEDS: CEFDINIR 300 MG CAP PO SCH (08:31)
[2022-01-02] MEDS: POTASSIUM CHLORIDE CRTAB 20 MEQ TABCR PO SCH ×2 (08:31→22:19)
[2022-01-02] MEDS: ADVANCED PROBIOTIC 1250 MG CAPSULE PO SCH (08:32)
[2022-01-02] MEDS: LOPERAMIDE HCL 2 MG CAP PO PRN (15:31)
[2022-01-02] MEDS ORDERED: VANCOMYCIN CONSULT ACTIVE PRN (15:59)
[2022-01-02] MEDS ORDERED: VANCOMYCIN HCL 1,500 MG in SODIUM CHLORIDE 0.9% 500 ML IV ONE (15:59)
--- NOTE | 2022-01-02 16:06 | Hospitalist Progress Note ---
Date of Service January 02, 2022 Assessment & Plan (1) Diabetic foot infection: Plan 66-year-old lady with PMH of T2DM, diabetic neuropathy, diabetic foot ulcers for which she follows with wound clinic for many months, Pito's, Hawley's esophagus, brain meningioma presented to the ED 12/19 as bilateral foot also had foul smell associated with increased redness and swelling. She is being managed for the following: Right and left foot osteomyelitis-POA Infected Bilateral diabetic foot ulcers s/p Right 2nd Ray Amputation, Right 3rd Metatarsal and Left 2nd Metatarsal with Application of Bilateral Wound Vacs(Bilateral) on 12/26/2021 Hx of Diabetic foot for last 2 years. --MRI foot:Osteomyelitis and cellulitis are seen in the right greater than left feet. No drainable fluid collections are seen. In the right foot, there is involvement of the second and third metatarsals, second and third proximal phalanges, and second digit middle phalanx. Degenerative changes are seen in the bilateral feet. --Blood Culture no growth. --Wound Culture MRSA, staph species, group B beta strep -- was empirically started on Vanco, cefepime, Flagyl initially ---> then changed to cefdinir and doxy w/ ID recs (since surgery was not contemplated, plan was Atb until seen by ortho as OP) -->> able to reconnect w/ ID on 01/02 --> iv vanc and iv cefepime for 6 weeks from the date of surgery. -- 12/26 s/p Right 2nd Ray Amputation, Right 3rd Metatarsal and Left 2nd Metatarsal with Application of Bilateral Wound Vacs(Bilateral) - Tim Phillip DPM, MS -- 12/26 operative Cx: low counts mixed probable skin microbiota. -- 12/26 Pathology report: Rt 3rd and left 2nd metatarsal phalangeal joint w/ no changes of OM, Rt 2nd toe "right second ray amputation" w/ severe chronic active OM w/ necrotic bony trabeculae. Plan: Patient is presently on cefdinir and doxycycline based on the superficial wound culture done at admission. D/w supervisor accounts receivable 12/30, will probably need prolonged IV atb per ID recs. changing to cefepime 01/02 and vancomycin 01/02 after rediscussion w/ ID. Will get PICC line. Continue would care with wound VAC. (3) DM II (diabetes mellitus, type II), controlled: Plan: -Uncontrolled -On glipizide, metformin and Trulicity at home Non complaint with medications HbA1c 10.1 --Usually blood glucose is in the 300s-400s as per daughter -Julian BOX while hospitalized, glycemic pharmacy on board. -special educator consulted (4) Nausea & vomiting: Plan: --CT ABD:No acute infectious or inflammatory findings are identified in the abdomen or pelvis. Mild hepatosplenomegaly. Hiatal hernia. --Gall Bladder USD:No acute sonographic abnormality is seen in the right upper quadrant. No gallstones are identified. The liver is enlarged and mildly steatotic. -- Currently no issues Monitor Right lower lobe pulmonary nodule--chronic Patient aware of Pulm nodule H/O Tobacco use --CT showed: Pathologically indeterminant 11 mm right lower lobe pulmonary nodule. A follow-up chest CT in 6 months time is recommended for reassessment and full evaluation --Advised to follow up as outpatient and CT chest in 6 months. Meningioma Previously followed with neurology --MRI Brain: No acute intracranial findings. 1.5 cm extra-axial enhancing lesion overlying the anterior medial left frontal lobe. This is suggestive of a meningioma. Comparison with prior imaging studies, if available, is recommended. In the absence of prior studies, a follow-up MRI of the brain in 6 months is recommended. -- Advised to follow-up with neurosurgery as outpatient Hyponatremia: Mild, likely due to dehydration, resolved. Monitor. Other electrolyte abnormalities: Monitor and replete as appropriate. Other chronic medical conditions: Pito's/HTN -->> continue with/resume home meds as and when appropriate. DVT prophylaxis: Heparin subcu CODE STATUS: Full code Dispo: PT/OT, to OR today. CM to assist with DC planning. Family Contact: Nathalie Staton Contact Number:[phone] Dispo: Vanc and cefepime 6 weeks from 12/26, CM made aware, will get PICC line, likely will dc andreia. Admission and Anticipated Discharge Date Admission Date: December 19, 2021 Subjective Patient seen and examined at bedside as a follow-up of bilateral foot osteomyelitis and infected bilateral diabetic foot ulcers and uncontrolled DM 2. Patient was sitting up in bed, on room air, NAD, denies any new acute event overnight, reports pain under control b/l feet, reports eating ok and having loose bowels, not watery stools, hold laxative, c diff neg, imodium prn. Patient denies any pain or discomfort.Patient denies any headache/dizziness/fever/chills/chest pain/palpitations/other review of symptoms. Physical Exam Physical Exam: GENERAL: Alert and oriented x3. NAD, on RA. Class I obese. HEENT: No pallor, no icterus. Pupils equal, round and reactive to light. Oral mucosa moist. NECK: No JVD, no neck masses. HEART: S1 and S2 heard. Regular rate and rhythm. No murmur, no gallop. RESPIRATORY SYSTEM: Normal AP diameter. No accessory muscle use. No wheezing, no crackles. ABDOMEN: Soft, bowel sounds present, nontender, no distention. CENTRAL NERVOUS SYSTEM: No facial droop. Speech is clear. Obeys simple commands. Moves extremities. EXTREMITIES: No edema, no erythema seen. b/l foot w/ wound vac, c/d/i. Rt 2nd toe amputation noted. Results & Data Results & Data ([facility]) Vital Signs (Past 12 Hours) Vital Signs Temp Pulse Pulse Resp BP Pulse Ox O2 Del Method 01/02/22 14:50 37 C 60 20 127/73 93 Room Air 01/02/22 12:00 36.6 C 66 18 111/70 95 Room Air 01/02/22 08:30 Room Air 01/02/22 07:00 65 01/02/22 07:00 36.5 C 63 16 115/72 95 Room Air
[2022-01-02] MEDS ORDERED: VANCOMYCIN HCL 2,000 MG in SODIUM CHLORIDE 0.9% 500 ML IV ONE (16:15)
[2022-01-02] MEDS: CEFEPIME 2,000 MG in SYRINGE 0 ML IV SCH (18:10)
--- NOTE | 2022-01-02 20:20 | Pharmacy Report ---
Pharmacy Vanc AUC Short Note - Date of Service January 02, 2022 - Assessment & Plan Assessment 01/02: * 66 year old F receiving VANCOMYCIN/CEFEPIME for treatment of BILATERAL OSTEOMYELITIS. Day # 1/ of antimicrobial therapy. Previous vancomycin therapy 12/19 to 12/25. Switched to cefdinir/doxycycline on 12/25. Resume vancomycin today, plan as below. 12/24: * L foot culture updated to few MRSA and rare MSSA. * Continues on cefepime/flagyl/vanco, ?de-escalate with culture data, antibiotics started prior to culture. ID was consulted (see hospitalist note) 12/22: * Pt had an MRI yesterday, confirming B/L foot osteomyelitis, right foot more significant than left foot. * Vancomycin level obtained today indicating sub-optimal dosing, despite dose increase yesterday. * Pertinent micro data: L foot wound cx -- Staph sp x2 (sensitivities pending) R foot wound cx -- Group B strep (sensitivities pending) * Ortho has been consulted and are recommending outpt f/u with podiatry. Pt will likely require amputation(s). 12/20 * 66 year old F receiving vancomycin/cefepime/flagyl for empiric treatment of b/l foot infections. Patient does have type II DM. Blood cultures are pending. Leukocytosis has resolved. MRIs to be done to r/o osteo. Plan Vancomycin * AUC/TONEY is the preferred PK/PD target for vancomycin * AUC guided dosing is effective and associated with decreased risk of nephrotoxicity compared to traditional trough targets * Vancomycin 2000mg x1 loading dose given, will restart the previously therapeutic regimen of 1750mg Q12H. * Trough level ordered for: 01/04/22 @ 1100 Pharmacy will continue to follow and will adjust dose/frequency as necessary. Thank you.
[2022-01-02] MEDS: ATORVASTATIN 20 MG TAB PO SCH (22:17)
[2022-01-03] MEDS: VANCOMYCIN HCL 1,750 MG in SODIUM CHLORIDE 0.9% 500 ML IV SCH ×2 (00:14→12:10)
[2022-01-03] MEDS: CEFEPIME 2,000 MG in SYRINGE 0 ML IV SCH ×3 (00:14→15:27)
[2022-01-03] MEDS: HEPARIN SOD 5,000 UNIT/0.5 ML VIAL SQ SCH ×2 (06:29→13:12)
[2022-01-03] MEDS: LEVOTHYROXINE SODIUM 175 MCG TABLET PO SCH (06:29)
[2022-01-03] MEDS: LANTUS PER UNIT CHARGE SQ SCH (08:12)
[2022-01-03] MEDS: INSULIN ASPART PER UNIT SC SCH ×3 (08:14→17:02)
[2022-01-03] MEDS: NYSTATIN/TRIAMCIN CR 15 GM TUBE EXT SCH (08:17)
[2022-01-03] MEDS: dilTIAZem HCL 180 MG CAPCR PO SCH (08:18)
[2022-01-03] MEDS: PANTOprazole 40 MG TAB PO SCH (08:18)
[2022-01-03] MEDS: ASPIRIN 81 MG ECTAB PO SCH (08:18)
[2022-01-03 08:19] LABS: Creatinine Clr Calc Pharmacy 82.7 ml/min; Est GFR (Non-African American) 69.9 ml/min
[2022-01-03] MEDS: FLUoxetine HCL 20 MG CAP PO SCH (08:19)
[2022-01-03] MEDS: POTASSIUM CHLORIDE CRTAB 20 MEQ TABCR PO SCH (08:20)
[2022-01-03] MEDS: CHOLECALCIFEROL 1,000 UNITS 25 MCG TAB PO SCH (08:20)
[2022-01-03] MEDS: CHLORTHALIDONE 25 MG TAB PO SCH (08:20)
[2022-01-03] MEDS: ADVANCED PROBIOTIC 1250 MG CAPSULE PO SCH (08:21)
--- NOTE | 2022-01-03 08:53 | Pharmacy Report ---
Pharmacy Glycemic Short Note 2 - Date of Service January 03, 2022 - Glycemic Short BSG Results (Last 24 hours): 01/02/22 01/02/22 01/02/22 11:44 16:29 20:50 POC Glucose 153 H 101 H 125 H 01/03/22 07:53 POC Glucose 136 H OUTPATIENT ANTIDIABETIC REGIMEN: * Metformin 1gm PO BID * Glipizide 10mg PO BID * Trulicity 1.5mg SQ weekly HbA1c: 10.1% (12/20/21) ASSESSMENT: 01/03/22: * BSGs remain very well-controlled, ranging 95-163 mg/dL over past 48 hours * Consistently received 110 units of insulin/day last 2 days (60 units of basal and 50 units of prandial/correctional bolus) * Fasting BSGs remain mildly elevated, 136 mg/dL this morning - will increase basal insulin today * Antibiotics changed, PO cefdinir + doxycycline to IV vancomycin and cefepime 12/31/21: * BSG trend noted over past 2 days, peaking at lunchtime with significant improvement at dinner/HS last evening * Will tighten Novolog for tomorrow morning and plan to loosen slightly at lunch, dinner, HS * Lantus increased to 30 units BID yesterday, will continue (fasting BSG improved from 186 to 163 mg/dL) 12/22 * Ms Staton is a 66yo diabetic F admitted with b/l foot cellulitis/osteomyelitis. * She has some DM med compliance issues (see CDE note for more details as well as discharge recommendations). * Pt has been hyperglycemic during admission. Pharmacy consulted this afternoon to aid with glycemic mgmt. * Lantus increased beginning this evening for fasting BSG above goal. * Novolog parameters adjusted to provide additional carb coverage for better control throughout the day. * Pt is receiving vancomycin, metronidazole, and cefepime. * Will target strict glycemic control in the setting of infection. PLAN FOR INPATIENT GLYCEMIC CONTROL: * Hold outpatient oral diabetes medications * Basal insulin - increase * Lantus 30 units SQ qAM * Lantus 35 units SC qPM * Bolus insulin * NovoLog per scale ACHS or Q6hrs while NPO * Goal Range: Low 110 mg/dL - High 140 mg/dL * Correction Factor: 10 mg/dL/unit at breakfast, 12 mg/dL/unit at lunch, dinner, HS * Nutritional / Prandial insulin per carb ratio of 1 unit per 3 grams CHO consumed with breakfast and 1 unit per 4 grams CHO consumed with lunch, dinner, HS
[2022-01-03] MEDS ORDERED: LANTUS PER UNIT CHARGE SQ SCH ×3 (09:00→21:00)
[2022-01-03] MEDS ORDERED: VANCOMYCIN LEVEL ONE (11:00)
[2022-01-03] MEDS: LOPERAMIDE HCL 2 MG CAP PO PRN (12:10)
--- NOTE | 2022-01-03 13:31 | Discharge Summary ---
Date of Service January 03, 2022 Admission HPI Per Admitting Provider This is a 66 yo F with PMhx of DM type II, Pito's, Hawley's esophagus, brain meningioma, diabetic neuropathy, history of foot ulcers which she has been being seen in the wound clinic for for many months. She was sent to the ER as bilateral foot ulcers had foul smell, increased redness and swelling. She reports not being on any recent antibiotics for this. She typically walks with socks at home, gets around without use of a walker or cane. No recent falls. She denies any fever /sweats but reports some chills. She has been taking her medication, however her daughter at bedside reports that she is not sure she is taking it accurately/compliantly. Patient notes that she has abdominal pain where she has a "pulling sensation" on her right side. She notes that there is a specific right upper quadrant discomfort. Patient has intermittent nausea and vomited once today. She also reports having issues with constipation, unknown last bowel movement. She is repetitively asking for something to eat during our encounter. Abdominal pain has been going on for months and has previously been told that she had a nonfunctioning gallbladder, and previously had a study where dye was injected into it and it was not working. Due to her chronic comorbidities and poor health she was told she was not an operable candidate and that they would not operate unless it was significantly needed. She notes that her second 1 year ago, and since then has struggled with her mood and admits to being depressed. She is taking antidepressants but is not sure that they actually help her. She is not seeing counselor or psychiatrist. Patient also notes that she was supposed to be wearing CPAP however has not in years. She does not wear any supplemental O2 at baseline. Quit smoking in 2007 after smoking 1 PPD since age 17. Denies any alcohol use. Admission Exam Per Admitting Provider This is a 66 yo F with PMhx of DM type II, Pito's, Hawley's esophagus, brain meningioma, diabetic neuropathy, history of foot ulcers which she has been being seen in the wound clinic for for many months. She was sent to the ER as bilateral foot ulcers had foul smell, increased redness and swelling. She reports not being on any recent antibiotics for this. She typically walks with socks at home, gets around without use of a walker or cane. No recent falls. She denies any fever /sweats but reports some chills. She has been taking her medication, however her daughter at bedside reports that she is not sure she is taking it accurately/compliantly. Patient notes that she has abdominal pain where she has a "pulling sensation" on her right side. She notes that there is a specific right upper quadrant discomfort. Patient has intermittent nausea and vomited once today. She also reports having issues with constipation, unknown last bowel movement. She is repetitively asking for something to eat during our encounter. Abdominal pain has been going on for months and has previously been told that she had a nonfunctioning gallbladder, and previously had a study where dye was injected into it and it was not working. Due to her chronic comorbidities and poor health she was told she was not an operable candidate and that they would not operate unless it was significantly needed. She notes that her second 1 year ago, and since then has struggled with her mood and admits to being depressed. She is taking antidepressants but is not sure that they actually help her. She is not seeing counselor or psychiatrist. Patient also notes that she was supposed to be wearing CPAP however has not in years. She does not wear any supplemental O2 at baseline. Quit smoking in 2007 after smoking 1 PPD since age 17. Denies any alcohol use. Principal Diagnosis Right and left foot osteomyelitis-POA Infected Bilateral diabetic foot ulcers s/p Right 2nd Ray Amputation, Right 3rd Metatarsal and Left 2nd Metatarsal with Application of Bilateral Wound Vacs(Bilateral) on 12/26/2021 Discharge Exam GENERAL: Alert and oriented x3. NAD, on RA. Class I obese. HEENT: No pallor, no icterus. Pupils equal, round and reactive to light. Oral mucosa moist. NECK: No JVD, no neck masses. HEART: S1 and S2 heard. Regular rate and rhythm. No murmur, no gallop. RESPIRATORY SYSTEM: Normal AP diameter. No accessory muscle use. No wheezing, no crackles. ABDOMEN: Soft, bowel sounds present, nontender, no distention. CENTRAL NERVOUS SYSTEM: No facial droop. Speech is clear. Obeys simple commands. Moves extremities. EXTREMITIES: No edema, no erythema seen. b/l foot dressing, c/d/i. Rt 2nd toe amputation noted. Bilateral wound VAC in place. Discharge Data Allergies Allergy/AdvReac Type Severity Reaction Status Date / Time nickel Allergy Intermediate RASH, SKIN Verified 12/19/21 16:16 IRRITATION Sulfa (Sulfonamide Allergy Intermediate Rash Verified 12/19/21 16:16 Antibiotics) Penicillins Allergy Unknown HAPPENED Verified 12/19/21 16:16 AN INFANT--FAMILY HX. Consultations 12/19/21 17:36 ED Decision to Admit Stat 12/19/21 18:48 HIM [Consult Health Information Management] Stat 12/19/21 21:30 Consult Orthopedic Surgery Routine 12/22/21 09:14 Consult Infectious Diseases Routine 12/23/21 08:26 Consult Behavioral Health Liaison Routine 12/25/21 08:30 Consult Podiatry Routine Procedures Performed Operation Date: 12/26/21 09:40 Actual Procedures p Right 2nd Ray Amputation, Right 3rd Metatarsal and Left 2nd Metatarsal with Application of Bilateral Wound Vacs(Bilateral) - Tim Phillip DPM, MS Ordered Studies 12/19/21 14:47 CT Abd and Pelvis [CT abd pelvis wo con] Stat 12/19/21 18:48 US gallbladder Stat 12/21/21 06:13 MR foot LT wo/w con Stat MR foot RT wo/w con Stat 12/21/21 12:53 MR brain wo/w con Routine Diabetes Follow up Diabetes Follow-up Needed for HgbA1c >9% Hospital Course (1) Diabetic foot infection: Plan 66-year-old lady with PMH of T2DM, diabetic neuropathy, diabetic foot ulcers for which she follows with wound clinic for many months, Pito's, Hawley's esophagus, brain meningioma presented to the ED 12/19 as bilateral foot also had foul smell associated with increased redness and swelling. She is being managed for the following issues during her hospitalization. Right and left foot osteomyelitis-POA Infected Bilateral diabetic foot ulcers s/p Right 2nd Ray Amputation, Right 3rd Metatarsal and Left 2nd Metatarsal with Application of Bilateral Wound Vacs(Bilateral) on 12/26/2021 --MRI foot:Osteomyelitis and cellulitis are seen in the right greater than left feet. No drainable fluid collections are seen. In the right foot, there is involvement of the second and third metatarsals, second and third proximal phalanges, and second digit middle phalanx. Degenerative changes are seen in the bilateral feet. --Blood Culture no growth. --Wound Culture MRSA, staph species, group B beta strep -- was empirically started on Vanco, cefepime, Flagyl initially ---> then changed to cefdinir and doxy w/ ID recs (since surgery was not contemplated, plan was Atb until seen by ortho as OP) -->> able to reconnect w/ ID on 01/02 --> iv vanc and iv cefepime for 6 weeks from the date of surgery. -- 12/26 s/p Right 2nd Ray Amputation, Right 3rd Metatarsal and Left 2nd Metatarsal with Application of Bilateral Wound Vacs(Bilateral) - Tim Phillip, DPM, MS -- 12/26 operative Cx: low counts mixed probable skin microbiota. -- 12/26 Pathology report: Rt 3rd and left 2nd metatarsal phalangeal joint w/ no changes of OM, Rt 2nd toe "right second ray amputation" w/ severe chronic active OM w/ necrotic bony trabeculae. Plan: Discharged to [facility] [place] After discussion with infectious disease and podiatry; patient was discharged on 6 weeks of vancomycin and cefepime from the day of the surgery( till February 06). Instruction was provided to draw vancomycin trough level along with CBC, CMP, ESR and CRP at the rehab Wound VAC change on Saturday and Saturday. Follow-up with Dr. Phillip or other podiatry at [place]. (3) DM II (diabetes mellitus, type II), controlled: Plan: -On glipizide, metformin and Trulicity at home Non complaint with medications HbA1c 10.1 Plan: Patient is started on Lantus 30 units twice daily and NovoLog 8 units 3 times daily along with metformin. Glipizide discontinued at discharge. Total Time Total Time Spent Total Time Spent (In Minutes): 45 Total Time Includes: Examination of the Patient, Discharge Planning, Medication Reconciliation, Communication With Other Providers and Other Discharge Plan Discharge Items Patient Disposition: Transfer Inpatient Rehab Fac Reason For Visit: FOOT ULCERATION Discharge Diagnosis: Right and left foot osteomyelitis-POA Infected Bilateral diabetic foot ulcers s/p Right 2nd Ray Amputation, Right 3rd Metatarsal and Left 2nd Metatarsal with Application of Bilateral Wound Vacs(Bilateral) on 12/26/2021 Activity: As commented below Activity Comment: non-weightbearing Non-emergency contact: Primary Care Provider Call non-emergency contact if: you have any medication questions and your symptoms worsen Follow-up/Referrals: PCP,NO [Primary Care Provider] - Diet: Carb Consistent or DM2 Addtl Attending Provider Instructions: You are admitted to the hospital with bilateral diabetic foot infection. You underwent Right 2nd Ray Amputation, Right 3rd Metatarsal and Left 2nd Metatarsal with Application of Bilateral Wound Vacs(Bilateral) on 12/26/2021. You are prescribed following antibiotics to be given till February 06, 2022. 1) IV vancomycin 1500 mg twice daily. Check Vancomycin trough level every Saturday starting January 05. Adjust dose based on the therapeutic level. 2) IV Cefepime 2000 mg every 8 hours. Please check weekly daily BMP, CBC, CRP, ESR starting on Thursday 10/05. Please take out the PICC line after the antibiotic course is finished. Wound care instructions; 3M wound VAC to left and right plantar foot wound. Irrigate with saline. Apply Skin-Prep to periphery. Allowed to dry. Fill with black foam bridging tracpad to dorsal foot. Set to -125 mm Hg continous mode. Change every Saturday, Saturday and Saturday. Lovenox 40 mg subcu once daily for DVT prophylaxis till you are bedbound. It can be discontinued after you are mobile and able to bear weight. Please follow-up with Dr. Tim Phillip( Podiatry) in 3 weeks. If you are not able to come to [place] for follow-up; can follow-up with podiatry at [facility]. Follow-up with primary care after the rehab. Pending Studies at Discharge: No Stand-Alone Forms: My [facility] Skilled Items Patient informed of condition?: No DNR: No Discharge Level of Care: Acute rehab Communicable Disease: No Discharge Prognosis: Stable Lines: PICC Urinary Catheter: No Medications and DC Order Prescriptions: New insulin glargine [Lantus U-100 Insulin] 100 unit/mL Solution 30 unit subcut BID Qty: 10 0RF insulin aspart U-100 [Novolog Flexpen U-100 Insulin] 100 unit/mL (3 mL) insulin pen 8 unit subcut TID Qty: 15 0RF enoxaparin [Lovenox] 40 mg/0.4 mL syringe 40 mg subcut DAILY Qty: 4 0RF Continued fluoxetine 40 mg capsule 40 mg PO DAILY levothyroxine 175 mcg tablet 175 mcg PO [id number] Rx Instructions: TAKE EVERY DAY EXCEPT SATURDAYS. potassium chloride 10 mEq capsule, extended release 10 meq PO DAILY atorvastatin 20 mg tablet 20 mg PO HS diltiazem HCl [Tiadylt ER] 360 mg capsule,extended release 24 hr 360 mg PO DAILY chlorthalidone 25 mg tablet 25 mg PO DAILY aspirin 81 mg Tablet,Delayed Release (Dr/Ec) 81 mg PO DAILY levothyroxine 100 mcg tablet 100 mcg PO WK Rx Instructions: TAKES ON SATURDAYS ONLY metformin 1,000 mg tablet 1,000 mg PO BID ondansetron 4 mg tablet,disintegrating 4 mg translingual Q8H PRN (Reason: NAUSEA/VOMITING) esomeprazole magnesium [Nexium] 20 mg Capsule,Delayed Release(Dr/Ec) 20 mg PO DAILY cholecalciferol (vitamin D3) [Vitamin D3] 25 mcg (1,000 unit) Capsule 25 mcg PO DAILY Dakin's Solution 0.125 % solution 1 applic topical DAILY Discontinued glipizide 10 mg tablet extended release 24hr 10 mg PO BID Discharge Orders: Discharge Order (Routine); Ordered 01/03/22 Ordered By: Federico Rivers/Other Patient Handouts: Nutrition for Wound Healing, High Blood Sugar (Hyperglycemia), Managing Type 2 Diabetes Admission Data Admit Date/Time: 12/19/21 17:44 Attending Provider: Federico Bentley Admit Provider: Stephanie Mcdonough Primary Care Provider: PCP,NO Other Providers: Stephanie Mcdonough ; French Agosto ; Isiah Zarate ; Elenita Acevedo ; Fuad Becerra I. ; Catrachito Carreno II ; Cee Vann ; Spike Iqbal ; Raymond Page ; Mason Smyth ; Tim Phillip Other Interventions: Discharge Summary Assessment (RN) Last Done: 01/03/22 12:50
[2022-01-04] MEDS ORDERED: LANTUS PER UNIT CHARGE SQ SCH (09:00)
== END 2022-01-03 17:45 | DRG 617 ==
LOC: ED 12:20 → SUATTDRO 17:44 → 2N 17:44